=== PATIENT | female | born 1960 | race Caucasian/White ===

== ENCOUNTER 2020-08-18 08:49 | Emergency (ER) | payer OTHER, SELFPAY ==
--- NOTE | ~2020-08-18 | XR_ITS ---
EXAMINATION: XR CHEST CLINICAL INFORMATION: Shortness of breath COMPARISON: None TECHNIQUE: Frontal view of the chest was obtained. FINDINGS: The cardiac and mediastinal contours are normal. There is question of bronchial wall thickening seen at the lung bases. The lungs are otherwise clear. There is no pleural effusion or pneumothorax. There are mild degenerative changes of the spine. XR/XR chest 1V IMPRESSION: Question bronchial wall thickening at the lung bases.
[2020-08-18 09:27] VITALS: BP 139/91; PULSE 80; RESP 18; TEMP 36.7; O2SAT 95; BMI 32.2
[2020-08-18] MEDS: 0.9 % Sodium Chloride 1,000 ML 999 ML IVCONT (09:30)
--- NOTE | 2020-08-18 09:33 | ECG_ITS ---
Test Reason : WEAKNESS Blood Pressure : / mmHG Vent. Rate : 066 BPM Atrial Rate : 066 BPM P-R Int : 144 ms QRS Dur : 070 ms QT Int : 388 ms P-R-T Axes : 048 015 039 degrees QTc Int : 406 ms Normal sinus rhythm Nonspecific T wave abnormality Abnormal ECG No previous ECGs available Referred By: Kelley Aguero Electronically Signed By:Gus Gonzales
--- NOTE | 2020-08-18 09:39 | ED_ITS ---
HPI - General Adult General Chief complaint: Upper Respiratory Symptoms Stated complaint: difficulty breathing Time Seen by Provider: 08/18/20 09:25 Source: patient Mode of arrival: ambulatory Limitations: no limitations History of Present Illness HPI narrative: Patient comes emergency room complaining of general malaise, fevers, occasional shortness of breath. Patient states all her symptoms started 5 days ago. Patient denies vomiting, diarrhea, no cough or chest pain. Patient was seen at [facility] 3 days ago, she was tested for COVID, the test was negative. Patient went again to [facility] this morning because she is still not feeling well, they asked her to come to the emergency room for further eval uation. Patient states that 2 days ago, she had temperature of 101.7 degrees Related Data Allergies Allergy/AdvReac Type Severity Reaction Status Date / Time codeine [CODEINE] Allergy Unknown SWELLING Unverified 02/05/20 14:42 phenytoin [Dilantin] Allergy Unknown Verified 12/29/16 00:00 Codeine Phosphate Allergy Unknown Uncoded 12/29/16 00:00 From DILANTIN Allergy Unknown ITCHY Uncoded 02/05/20 14:42 Review of Systems Review of Systems: Constitutional : No Weight loss, complaining of fever, chills, fatigue, generalized malaise ENT/Mouth : No Hearing loss, No Ear Pain, No Nasal Congestion, No Sinus Pain, No Hoarseness, No sore throat, No Rhinorrhea, No Swallowing Difficulty Eyes: No Eye Pain, No Swelling, No Redness, No Foreign Body, No Discharge, No Vision Changes Cardiovascular : No Chest Pain, No SOB, patient does report Dyspnea on Exertion, No Orthopnea, No Edema, No Palpitations Respiratory : No Cough, No Sputum, No Wheezing, No Smoke Exposure Gastrointestinal : No Nausea, No Vomiting, No Diarrhea, No Constipation, No ab dominal Pain, No Hematochezia, No Melena Genitourinary : no irregular bleeding, No Dysuria, No Urinary Frequency, No Hematuria, No Urinary Incontinence, No Urgency, No Flank Pain, No Urinary Flow Changes, No Hesitancy Musculoskeletal : Complaining of generalized body aches, No Joint Swelling Skin : No Skin Lesions, No rash Neuro : No Weakness, No Numbness, No Paresthesias, No Loss of Consciousness, No Dizziness, No Headache Psych : No Anxiety/Panic, No Depression, No SI/HI/AH/VH, No Social Issues, Heme/Lymph: No Bruising, No Bleeding,No Lymphadenopathy Endocrine : No Polyuria, No Polydipsia, No Temperature Intolerance [facility] Past Medical History Medical History (Updated 08/18/20 @ 11:44 by Kelley Aguero MD) Cerebral aneurysm COPD exacerbation Seizures Social History Social History Advance Directives: No Advance Directives Information Provided: No Physical Exam Vital Signs: Vital Signs: Last Vital Signs Temp 98.1 F 08/18/20 15:42 Pulse 65 08/18/20 15:42 Resp 14 08/18/20 15:42 BP 148/78 H 08/18/20 15:42 Pulse Ox 92 08/18/20 15:42 Body Mass Index 32.2 Appearance: Alert. Oriented X3. No acute distress. Eyes: Pupils equal, round and reactive to light. ENT: Pharynx normal. Neck: Normal inspection. Neck supple. No lymph nodes noted. No crepitus CVS: Normal heart rate and rhythm. Pulses normal. Normal S1 and S2 Respiratory: No respiratory distress. Crackles in the left lower lobe, No Wheezing. No rales Abdomen: Soft and nontender. No rigidity. No distention. good BS x4 Skin: Skin warm, clammy Extremities: No lower extremity edema. Neuro: Oriented X 3. No motor deficit. No sensory deficit. Moving all extermities. No slurred speech. Course Course Course Narrative: I discussed the labs with the patient, patient tested positive for COVID-19. Patient's troponin is slightly bumped. Repeat due at 13:30. Patient remains asymptomatic. Patient was walked, oxygen saturation remained 96% on room air Patient instructed to stay home for 2 weeks isolated. Medical Decision Making Lab Data Result diagrams: 08/18/20 10:24 08/18/20 10:24 Labs: Lab Results 08/18/20 08/18/20 08/18/20 Range/Units 10:24 10:24 10:24 WBC 4.7 L (4.8-10.8) X10*3/uL RBC 4.66 (4.20-5.50) X10*6/uL Hgb 14.8 (12.0-16.0) g/dl Hct 43.5 (37-47) % MCV 93.3 (80-98) fL MCH 31.8 (27.0-33.0) pg MCHC 34.0 (31.0-35.0) g/dl RDW 12.4 (11.0-16.0) % Plt Count 219 (160-400) X10*3/uL MPV 8.9 L (9.4-12.3) fL Immature Gran % (Auto) 0.2 (0.0-0.4) % Neut % (Auto) 53.0 (45-73) % Lymph % (Auto) 32.3 (20-40) % [place] % (Auto) 14.3 H (2-11) % Eos % (Auto) 0.0 (0-4) % Baso % (Auto) 0.2 (0-2) % Lymph # (Auto) 1.5 (1.2-4.9) X10*3/uL [place] # (Auto) 0.7 (0.1-1.2) X10*3/uL Eos # (Auto) 0.0 (0.0-0.4) X10*3/uL Baso # (Auto) 0.0 (0.0-0.2) X10*3/uL Abs Immat Gran (auto) 0.01 (0.00-0.03) X10*3/uL Absolute Neuts (auto) 2.5 (2.0-8.3) X10*3/uL Absolute Nucleated RBC 0.000 (0.0-0.012) X10*3/uL Nucleated RBC % (auto) 0.0 (0.0-0.2) /100WBC Sodium 135 (135-145) mmol/L Potassium 4.1 (3.3-5.1) mmol/L Chloride 102 (96-108) mmol/L Carbon Dioxide 21 L (22-29) mmol/L Anion Gap 16 (12-20) BUN 15 (9-16) mg/dL Creatinine 0.78 (0.5-1.4) mg/dL Estim Creat Clear Calc 67.5 Estimated GFR > 60 Random Glucose 103 (60-115) mg/dL Lactic Acid 0.7 (0.5-2.0) mmol/L Calcium 8.7 (8.4-10.2) mg/dL Troponin I High Sens (<3.5-17.0) ng/L B-Natriuretic Peptide (<100) pg/mL Urine Color Urine Appearance Urine pH (5.0-8.0) Ur Specific [place] (1.005-1.025) Urine Protein (NEG-TRACE) MG/DL Urine Glucose (UA) (NEG) MG/DL Urine Ketones (NEG) MG/DL Urine Blood (NEG) Urine Nitrite (NEG) Ur Leukocyte Esterase (NEG) Urine RBC (0) /HPF Urine WBC (0-4) /HPF Ur Squamous Epith Cells /LPF Urine Bacteria /LPF Hyaline Casts /LPF Granular Casts /LPF Coronavirus (PCR) (Negative) Influenza Type A (PCR) (Negative) Influenza Type B (PCR) (Negative) RSV RNA Qual (PCR) (Negative) 08/18/20 08/18/20 08/18/20 Range/Units 10:24 10:24 10:24 WBC (4.8-10.8) X10*3/uL RBC (4.20-5.50) X10*6/uL Hgb (12.0-16.0) g/dl Hct (37-47) % MCV (80-98) fL MCH (27.0-33.0) pg MCHC (31.0-35.0) g/dl RDW (11.0-16.0) % Plt Count (160-400) X10*3/uL MPV (9.4-12.3) fL Immature Gran % (Auto) (0.0-0.4) % Neut % (Auto) (45-73) % Lymph % (Auto) (20-40) % [place] % (Auto) (2-11) % Eos % (Auto) (0-4) % Baso % (Auto) (0-2) % Lymph # (Auto) (1.2-4.9) X10*3/uL [place] # (Auto) (0.1-1.2) X10*3/uL Eos # (Auto) (0.0-0.4) X10*3/uL Baso # (Auto) (0.0-0.2) X10*3/uL Abs Immat Gran (auto) (0.00-0.03) X10*3/uL Absolute Neuts (auto) (2.0-8.3) X10*3/uL Absolute Nucleated RBC (0.0-0.012) X10*3/uL Nucleated RBC % (auto) (0.0-0.2) /100WBC Sodium (135-145) mmol/L Potassium (3.3-5.1) mmol/L Chloride (96-108) mmol/L Carbon Dioxide (22-29) mmol/L Anion Gap (12-20) BUN (9-16) mg/dL Creatinine (0.5-1.4) mg/dL Estim Creat Clear Calc Estimated GFR Random Glucose (60-115) mg/dL Lactic Acid (0.5-2.0) mmol/L Calcium (8.4-10.2) mg/dL Troponin I High Sens 7.2 (<3.5-17.0) ng/L B-Natriuretic Peptide < 10 (<100) pg/mL Urine Color YELLOW Urine Appearance HAZY Urine pH 5.5 (5.0-8.0) Ur Specific [place] 1.025 (1.005-1.025) Urine Protein 1+ H (NEG-TRACE) MG/DL Urine Glucose (UA) NEG (NEG) MG/DL Urine Ketones NEG (NEG) MG/DL Urine Blood NEG (NEG) Urine Nitrite NEG (NEG) Ur Leukocyte Esterase NEG (NEG) Urine RBC 0-2 (0) /HPF Urine WBC 0 (0-4) /HPF Ur Squamous Epith Cells 2+ /LPF Urine Bacteria NONE /LPF Hyaline Casts 0-2 /LPF Granular Casts 5-9 /LPF Coronavirus (PCR) POSITIVE A (Negative) Influenza Type A (PCR) NEGATIVE (Negative) Influenza Type B (PCR) NEGATIVE (Negative) RSV RNA Qual (PCR) NEGATIVE (Negative) 08/18/20 Range/Units 13:14 WBC (4.8-10.8) X10*3/uL RBC (4.20-5.50) X10*6/uL Hgb (12.0-16.0) g/dl Hct (37-47) % MCV (80-98) fL MCH (27.0-33.0) pg MCHC (31.0-35.0) g/dl RDW (11.0-16.0) % Plt Count (160-400) X10*3/uL MPV (9.4-12.3) fL Immature Gran % (Auto) (0.0-0.4) % Neut % (Auto) (45-73) % Lymph % (Auto) (20-40) % [place] % (Auto) (2-11) % Eos % (Auto) (0-4) % Baso % (Auto) (0-2) % Lymph # (Auto) (1.2-4.9) X10*3/uL [place] # (Auto) (0.1-1.2) X10*3/uL Eos # (Auto) (0.0-0.4) X10*3/uL Baso # (Auto) (0.0-0.2) X10*3/uL Abs Immat Gran (auto) (0.00-0.03) X10*3/uL Absolute Neuts (auto) (2.0-8.3) X10*3/uL Absolute Nucleated RBC (0.0-0.012) X10*3/uL Nucleated RBC % (auto) (0.0-0.2) /100WBC Sodium (135-145) mmol/L Potassium (3.3-5.1) mmol/L Chloride (96-108) mmol/L Carbon Dioxide (22-29) mmol/L Anion Gap (12-20) BUN (9-16) mg/dL Creatinine (0.5-1.4) mg/dL Estim Creat Clear Calc Estimated GFR Random Glucose (60-115) mg/dL Lactic Acid (0.5-2.0) mmol/L Calcium (8.4-10.2) mg/dL Troponin I High Sens 5.9 (<3.5-17.0) ng/L B-Natriuretic Peptide (<100) pg/mL Urine Color Urine Appearance Urine pH (5.0-8.0) Ur Specific [place] (1.005-1.025) Urine Protein (NEG-TRACE) MG/DL Urine Glucose (UA) (NEG) MG/DL Urine Ketones (NEG) MG/DL Urine Blood (NEG) Urine Nitrite (NEG) Ur Leukocyte Esterase (NEG) Urine RBC (0) /HPF Urine WBC (0-4) /HPF Ur Squamous Epith Cells /LPF Urine Bacteria /LPF Hyaline Casts /LPF Granular Casts /LPF Coronavirus (PCR) (Negative) Influenza Type A (PCR) (Negative) Influenza Type B (PCR) (Negative) RSV RNA Qual (PCR) (Negative) Imaging Data Chest x-ray: Radiologist's impression: The cardiac and mediastinal contours are normal. There is question of bronchial wall thickening seen at the lung bases. The lungs are otherwise clear. There is no pleural effusion or pneumothorax. There are mild degenerative changes of the spine. XR/XR chest 1V IMPRESSION: Question bronchial wall thickening at the lung bases. ECG Data Attestation: I personally reviewed and interpreted this ECG as follows: (Heart rate 66, sinus rhythm, nonspecific ST segment depression 1 mm in V4 V5, no reciprocal changes) Discharge Plan Discharge Clinical Impression: COVID-19 Patient Disposition: Home, Self-Care Instructions: COVID-19 (Coronavirus Disease 2019) (ED) Additional Instructions: Please follow-up with your primary care physician tomorrow. If you have any worsening or new symptoms, please return to the emergency room or call 911
[2020-08-18 10:00] VITALS: BP 138/81; PULSE 64; RESP 21; TEMP 37.1; O2SAT 90
[2020-08-18 10:30] LABS: MANUAL DIFF FLAG NO
[2020-08-18 10:41] LABS: Basophils Percent Auto 0.2 % (0-2); Hematocrit 43.5 % (37-47); Hemoglobin 14.8 g/dl (12.0-16.0); Imm Gran Abs Auto 0.01 X10*3/uL (0.00-0.03); Imm Gran Pct Auto 0.2 % (0.0-0.4); Lymphocytes Absolute Auto 1.5 X10*3/uL (1.2-4.9); Lymphocytes Percent Auto 32.3 % (20-40); Mean Corpuscular Hemoglobin 31.8 pg (27.0-33.0); Mean Corpuscular Volume 93.3 fL (80-98); Mean Platelet Volume 8.9 fL (9.4-12.3); Monocytes Absolute Auto 0.7 X10*3/uL (0.1-1.2); Monocytes Percent Auto 14.3 % (2-11); Neutrophils Absolute Auto 2.5 X10*3/uL (2.0-8.3); Platelet Count 219 X10*3/uL (160-400); Red Blood Count 4.66 X10*6/uL (4.20-5.50); Red Cell Distribution Width 12.4 % (11.0-16.0); White Blood Count 4.7 X10*3/uL (4.8-10.8)
[2020-08-18 10:51] LABS: Lactic Acid 0.7 mmol/L (0.5-2.0)
[2020-08-18 10:54] LABS: Glucose Urine UA NEG (NEG); Leukocyte Esterase Urine NEG (NEG); Nitrite Urine NEG (NEG); PH 5.5 (5.0-8.0); Specific Gravity - Urine 1.025 (1.005-1.025); Urine Blood NEG (NEG); Urine Ketones NEG (NEG); Urine Protein 1+ MG/DL (NEG-TRACE)
[2020-08-18 10:55] LABS: Appearance Urine HAZY; Color Urine YELLOW
[2020-08-18 11:00] LABS: Anion Gap 16 (12-20); Blood Urea Nitrogen 15 mg/dL (9-16); Calcium 8.7 mg/dL (8.4-10.2); Carbon Dioxide 21 mmol/L (22-29); Chloride 102 mmol/L (96-108); Creatinine Clr Calc Pharmacy 67.5; Estimated Glomerular Filt Rate > 60; Glucose Random 103 mg/dL (60-115); Potassium 4.1 mmol/L (3.3-5.1); Sodium 135 mmol/L (135-145)
[2020-08-18 11:01] LABS: B Type Natriuretic Peptide < 10 pg/mL (<100); Troponin-I High Sensitivity 7.2 ng/L (<3.5-17.0)
[2020-08-18 11:03] LABS: Hyaline Casts Urine 0-2 /LPF; RBC Urine 0-2 /HPF (0); Squamous Epithelial Cell Urine 2+ /LPF; WBC Urine 0 /HPF (0-4)
[2020-08-18 11:10] LABS: Influenza A PCR NEGATIVE (Negative); Influenza B PCR NEGATIVE (Negative); Resp Syncy Virus RNA Qual PCR NEGATIVE (Negative); SARS COV2 PCR INHOUSE POSITIVE (Negative)
[2020-08-18 13:54] LABS: Troponin-I High Sensitivity 5.9 ng/L (<3.5-17.0)
[2020-08-18 15:42] VITALS: BP 148/78; PULSE 65; RESP 14; TEMP 36.7; O2SAT 92
[2020-08-18 16:00] VITALS: BP 148/78; PULSE 66
== END 2020-08-18 17:01 | disposition home or self-care (01) ==
PROVIDERS: Emergency Provider Emergency Medicine; PCP Internal Medicine
DX: U07.1 COVID-19 (principal); R06.02 Shortness of breath; R50.9 Fever, unspecified; M79.10 Myalgia, unspecified site
CPT/HCPCS: 0241U; 36415; 71045; 80048; 81001; 83605; 83880; 84484; 85025; 87040; 93005; 96360; 99284

== ENCOUNTER 2021-03-15 11:07 | Outpatient (REF) | payer OTHER, SELFPAY ==
[2021-03-15 12:44] LABS: Anion Gap 13 (12-20); Carbon Dioxide 20 mmol/L (22-29); Chloride 109 mmol/L (96-108); Potassium 4.3 mmol/L (3.3-5.1); Sodium 138 mmol/L (135-145)
[2021-03-15 13:18] LABS: Carbamazepine Tegretol 12.1 mcg/mL (5.0-12.0)
== END 2021-03-15 11:08 | disposition home or self-care (01) ==
LOC: HO.LAB 11:07
PROVIDERS: PCP Internal Medicine; Visit Provider Psychiatry & Neurology Neurology
DX: G40.909 Epilepsy, unspecified, not intractable, without status epilepticus (principal)
CPT/HCPCS: 36415; 80051; 80156

== ENCOUNTER 2022-05-11 14:22 | Outpatient (REF) | payer OTHER, SELFPAY ==
[2022-05-11 15:07] LABS: Influenza A PCR NEGATIVE (Negative); Influenza B PCR NEGATIVE (Negative); Resp Syncy Virus RNA Qual PCR NEGATIVE (Negative); SARS COV2 PCR INHOUSE NEGATIVE (Negative)
== END 2022-05-11 14:23 | disposition home or self-care (01) ==
LOC: HO.LNP 14:22
PROVIDERS: Visit Provider Physician Assistant
DX: Z20.822 Contact with and (suspected) exposure to COVID-19 (principal); B34.9 Viral infection, unspecified
CPT/HCPCS: 0241U

== ENCOUNTER 2022-07-06 14:21 | Observation (INO) | payer OTHER, SELFPAY ==
--- NOTE | ~2022-07-06 | XR_ITS ---
EXAMINATION: XR CHEST CLINICAL INFORMATION: Chest pain and shortness of breath. COMPARISON: 08/18/2020 chest radiograph. TECHNIQUE: 2 views of the chest were obtained. FINDINGS: No significant abnormality is noted involving the heart, lungs, mediastinum, bony thorax or soft tissues. XR/XR chest 2V IMPRESSION: No acute cardiopulmonary process.
--- NOTE | ~2022-07-06 | CT_ITS ---
EXAMINATION: CT ANGIOGRAM OF THE CHEST WITH AND WITHOUT CONTRAST (CT PULMONARY ANGIOGRAM FOR PE) CT ABDOMEN AND PELVIS WITH IV CONTRAST CLINICAL INFORMATION: Shortness of breath. Abdominal pain. COMPARISON: CT abdomen/pelvis 12/04/2018. TECHNIQUE: Prior to contrast administration, noncontrast localization images were obtained. Subsequently, multidetector volumetric imaging was performed from the thoracic inlet to the pubic symphysis through the chest, abdomen, and pelvis following the administration of 65 mL Omnipaque 350 intravenous contrast. No contrast reaction reported Sagittal, coronal, and MIP oblique sagittal (through the chest only) reformatted images were obtained on the CT workstation, uploaded to PACS, and reviewed. Total exam dose-length product 244 and 550 mGy-cm This CT examination was performed using dose optimization techniques as appropriate, variously including the following: *Automated exposure control *Adjustment of mA and/or kV according to patient size (this includes techniques or standardized protocols for targeted exams where dose is matched to indication/reason for exam; i.e. extremities or head) *Use of iterative reconstruction technique FINDINGS: QUALITY OF STUDY/CONTRAST BOLUS: Satisfactory. PULMONARY ARTERIES: No central or segmental pulmonary emboli. THORACIC AORTA: No aneurysm or dissection. LUNG: Background of extensive emphysematous changes with also peripheral reticulation and possibly honeycombing in the lung bases. There are multiple pulmonary nodules, largest as follow (series 8): 1. Solid 0.9 cm nodule in the left lower lobe, image 253. 2. Solid 0.9 cm nodule in the right middle lobe abutting the minor fissure, image 229. 3. Solid 0.7 cm pulmonary nodule in the right lower lobe, image 245. 4. Solid 0.7 cm nodule also in the right lower lobe, image 236. PLEURA: No pleural effusion or pneumothorax. MEDIASTINUM: Normal heart size. No pericardial effusion. No evidence of septal bowing or right heart strain. Hilar lymphadenopathy, for example measuring 1.5 cm short axis on the right side on image 201, series 8. Subcentimeter thyroid nodule in the right gland, for which no imaging follow-up is recommended. CHEST WALL/AXILLA: No axillary or internal mammary lymphadenopathy. ABDOMEN/PELVIS: LIVER, GALLBLADDER AND BILIARY TREE: The liver is normal in size, shape, and attenuation. No focal hepatic lesion or biliary ductal dilatation is present. The gallbladder is unremarkable with no evidence of radiopaque gallstones, gallbladder wall thickening, or obvious pericholecystic inflammatory changes. PANCREAS: Questionable ill-defined focal hypodensity in the pancreatic head posterior to the SMV (15:30) and suggestion of additional indeterminate area of low density abutting the anterior surface of the pancreatic head (15:34). The main pancreatic duct is nondilated. No peripancreatic inflammatory changes. SPLEEN: Normal size. No focal lesion. ADRENAL GLANDS: Normal; no mass. KIDNEYS AND URETERS: Chronic atrophy of the right kidney. Compensatory hypertrophy of the left kidney with cortical scarring in the anterior surface. Bosniak 1 water density cyst in the upper left kidney. No hydronephrosis or nephrolithiasis. No perinephric fat stranding. GASTROINTESTINAL TRACT: Stomach and small bowel non-dilated. Colonic diverticulosis. No colonic wall thickening or pericolonic inflammatory changes. Normal appendix. ABDOMINAL WALL: No significant hernia is appreciated. LYMPHOVASCULAR STRUCTURES: No lymphadenopathy. No aneurysmatic dilatation of the abdominal aorta. Extensive atherosclerotic disease. BLADDER: No focal mass or wall thickening seen. No bladder calculi. PELVIC VISCERA: Unremarkable. OSSEOUS STRUCTURES: No acute or suspicious osseous abnormality. Degenerative changes of the spine. CT/CT angio chest PE protocol IMPRESSION: 1. No evidence of pulmonary emboli nor increased right-sided heart pressure. 2. Multiple solid rounded pulmonary nodules are concerning for malignancy, including metastatic disease. 3. Equivocal nonspecific regions of low density in the pancreatic head, for which correlation with an abdominal MRI with and without IV contrast/MRCP pancreatic mass protocol is recommended to further characterize. 4. Hilar lymphadenopathy. 5. Background of significant emphysema and possible early pulmonary fibrosis in the lung bases. 6. Colonic diverticulosis with no evidence of acute diverticulitis. VTE: negative This critical result was discussed with Dr. Perea at 07/07/2022 12:47 AM, specifically the findings of suspicious pulmonary nodules and abnormal appearance of the pancreatic head, and it was ascertained that the content of the report was understood at the time of direct communication.
[2022-07-06 14:23] VITALS: BP 149/84; PULSE 89; RESP 16; TEMP 36.6; O2SAT 97; BMI 31.1
--- NOTE | 2022-07-06 14:24 | ED.SOB ---
HPI - SOB/Dyspnea General Chief Complaint: Upper Respiratory Symptoms Stated Complaint: sent by having trouble breathing Time Seen by Provider: 07/06/22 20:05 Related Data Home Medications Medication Instructions Recorded Confirmed amlodipine 10 mg tablet 10 mg PO DAILY 05/11/22 carbamazepine 200 mg tablet mg PO 05/11/22 ezetimibe 10 mg tablet 10 mg PO DAILY 05/11/22 fluoxetine 20 mg capsule 40 mg PO DAILY 05/11/22 gabapentin 100 mg capsule mg PO 05/11/22 latanoprost 0.005 % eye drops 0 drp ophthalmic (eye) 05/11/22 rosuvastatin 5 mg tablet 5 mg PO DAILY 05/11/22 umeclidinium 62.5 mcg-vilanterol 1 ea inhalation DAILY 05/11/22 25 mcg/actuation powdr for inhalation (Anoro Ellipta) warfarin 4 mg tablet mg PO 05/11/22 Previous Rx's Medication Instructions Recorded albuterol sulfate 90 mcg/actuation 2 puff inhalation Q6H PRN 05/11/22 aerosol inhaler shortness of breath or wheezing #6.7 grams benzonatate 100 mg capsule 100 mg PO BID PRN cough #14 caps 05/11/22 doxycycline hyclate 100 mg capsule 100 mg PO BID 7 days #14 caps 05/11/22 prednisone 20 mg tablet 40 mg PO DAILY 5 days #10 tabs 05/11/22 Allergies Allergy/AdvReac Type Severity Reaction Status Date / Time codeine [CODEINE] Allergy Unknown SWELLING Verified 07/06/22 14:28 phenytoin [Dilantin] Allergy Unknown Rash Verified 07/06/22 14:28 Codeine Phosphate Allergy Unknown Swelling Uncoded 07/06/22 14:28 From DILANTIN Allergy Unknown ITCHY Uncoded 07/06/22 14:28 [facility] Past Medical History Medical History (Updated 07/07/22 @ 01:02 by Deshawn Perea) Cerebral aneurysm COPD exacerbation Seizures Social History Social History Alcohol intake: never Patient Tobacco Use Status: Former Tobacco user Smoked in Last 30 Days: No Use of substances other than those prescribed or required for medical reasons: No Advance Directives: No Nutrition Risks: No Nutritional Risk Patient : No Physical Exam Vital Signs: Vital Signs: Last Vital Signs Temp 98.1 F 07/06/22 22:30 Pulse 71 07/06/22 22:30 Resp 18 07/06/22 22:30 BP 147/77 H 07/06/22 22:30 Pulse Ox 94 07/06/22 22:30 O2 Del Method 07/06/22 22:30 BMI result Body Mass Index 31.1 Course Course Course Narrative: MADY- 14:25pm 62yoF with a PMHx of COPD, stroke currently on Coumadin has her INR checked every Sunday currently on 4.2 mg of Coumadin who is presenting to the ED with URI symptoms. Reports on Jun 13 tested + for COVID-19 and went to [place] for the monoclonal therapy due to being on blood thinners who is presenting to the ED with complaints of worsening symptoms since she was dx with COVID which includes fevers, sore throat, nasal congestion, cough, SOB, BOSS, Orthopnea, diarrhea. She denies any dizziness, neck pain/stiffness, abdominal pain, nausea/vomiting, lower extremity edema or calf tenderness or any other symptoms complaints or concerns at this time. Plan: LABS, EKG, CHEST X-RAY, COVID/RSV/FLU swabs ordered at this time. Patient will be sent back to the waiting room to be evaluated in ED. Medications Administered Generic Name Dose Route Start Last Admin Trade Name Freq PRN Reason Stop Dose Admin Methylprednisolone Sodium Succinate 40 mg 07/06/22 23:00 07/06/22 23:59 Methylprednisolone Sod Succ 40 Mg/Ml Vial IVPUSH 40 mg Q12H ARPAN Administration Sodium Chloride 3 ml 07/07/22 00:00 07/07/22 00:13 0.9 % Sodium Chloride Flush 3 Ml Syringe IVFLUSH 3 ml QSHIFT ARPAN Administration Discontinued Medications Generic Name Dose Route Start Last Admin Trade Name Freq PRN Reason Stop Dose Admin Sodium Chloride 500 mls @ 500 mls/hr 07/06/22 20:25 07/06/22 23:31 Ns IV 07/06/22 21:24 Infused .Q1H ONE Infusion Iohexol 65 ml 07/07/22 00:07 07/07/22 00:10 Iohexol 350 Mg/Ml 100 Ml Infus..Btl IV 07/07/22 00:08 65 ml ONCE ONE Administration Medical Decision Making Lab Data 07/06/22 14:50 02/16/23 14:50 Labs: Lab Results 07/06/22 07/06/22 07/06/22 Range/Units 14:50 14:50 14:50 WBC 6.7 (4.8-10.8) X10*3/uL RBC 4.59 (4.20-5.50) X10*6/uL Hgb 14.2 (12.0-16.0) g/dl Hct 42.2 (37.0-47.0) % MCV 91.9 (80.0-98.0) fL MCH 30.9 (27.0-33.0) pg MCHC 33.6 (31.0-35.0) g/dl RDW 13.2 (11.0-16.0) % Plt Count 258 (160-400) X10*3/uL MPV 8.9 L (9.4-12.3) fL Immature Gran % (Auto) 0.3 (0.0-0.4) % Neut % (Auto) 61.0 (45-73) % Lymph % (Auto) 28.0 (20-40) % [place] % (Auto) 10.0 (2-11) % Eos % (Auto) 0.3 (0-4) % Baso % (Auto) 0.4 (0-2) % Lymph # (Auto) 1.9 (1.2-4.9) X10*3/uL [place] # (Auto) 0.7 (0.1-1.2) X10*3/uL Eos # (Auto) 0.0 (0.0-0.4) X10*3/uL Baso # (Auto) 0.0 (0.0-0.2) X10*3/uL Abs Immat Gran (auto) 0.02 (0.00-0.03) X10*3/uL Absolute Neuts (auto) 4.1 (2.0-8.3) x10*3/uL Absolute Nucleated RBC 0.000 (0.0-0.012) X10*3/uL Nucleated RBC % (auto) 0.0 (0.0-0.2) /100WBC PT 27.5 H (10.0-13.1) SEC INR 2.3 H (0.9-1.1) Sodium 124 L (135-145) mmol/L Potassium 3.8 (3.3-5.1) mmol/L Chloride 96 (96-108) mmol/L Carbon Dioxide 18 L (22-29) mmol/L Anion Gap 14 (12-20) BUN 13 (9-16) mg/dL Creatinine 0.70 (0.5-1.4) mg/dL Estim Creat Clear Calc 75.1 Estimated GFR > 60 Random Glucose 99 (60-115) mg/dL Osmolality (281-305) mosm/kg Calcium 8.7 (8.4-10.2) mg/dL Magnesium 1.9 (1.6-2.6) mg/dL Total Bilirubin 0.3 (0.0-1.0) mg/dL AST 34 H (5-31) U/L ALT 21 (0-31) U/L Alkaline Phosphatase 97 (39-117) U/L Troponin I High Sens (<3.5-17.0) ng/L B-Natriuretic Peptide (<100) pg/mL Total Protein 7.1 (6.5-8.0) g/dL Albumin 4.2 (3.5-5.0) g/dL Influenza Type A (PCR) (Negative) Influenza Type B (PCR) (Negative) RSV RNA Qual (PCR) (Negative) SARS-CoV-2 RNA (RT-PCR) (Negative) 07/06/22 07/06/22 07/06/22 Range/Units 14:50 14:50 14:50 WBC (4.8-10.8) X10*3/uL RBC (4.20-5.50) X10*6/uL Hgb (12.0-16.0) g/dl Hct (37.0-47.0) % MCV (80.0-98.0) fL MCH (27.0-33.0) pg MCHC (31.0-35.0) g/dl RDW (11.0-16.0) % Plt Count (160-400) X10*3/uL MPV (9.4-12.3) fL Immature Gran % (Auto) (0.0-0.4) % Neut % (Auto) (45-73) % Lymph % (Auto) (20-40) % [place] % (Auto) (2-11) % Eos % (Auto) (0-4) % Baso % (Auto) (0-2) % Lymph # (Auto) (1.2-4.9) X10*3/uL [place] # (Auto) (0.1-1.2) X10*3/uL Eos # (Auto) (0.0-0.4) X10*3/uL Baso # (Auto) (0.0-0.2) X10*3/uL Abs Immat Gran (auto) (0.00-0.03) X10*3/uL Absolute Neuts (auto) (2.0-8.3) x10*3/uL Absolute Nucleated RBC (0.0-0.012) X10*3/uL Nucleated RBC % (auto) (0.0-0.2) /100WBC PT (10.0-13.1) SEC INR (0.9-1.1) Sodium (135-145) mmol/L Potassium (3.3-5.1) mmol/L Chloride (96-108) mmol/L Carbon Dioxide (22-29) mmol/L Anion Gap (12-20) BUN (9-16) mg/dL Creatinine (0.5-1.4) mg/dL Estim Creat Clear Calc Estimated GFR Random Glucose (60-115) mg/dL Osmolality (281-305) mosm/kg Calcium (8.4-10.2) mg/dL Magnesium (1.6-2.6) mg/dL Total Bilirubin (0.0-1.0) mg/dL AST (5-31) U/L ALT (0-31) U/L Alkaline Phosphatase (39-117) U/L Troponin I High Sens 12.7 (<3.5-17.0) ng/L B-Natriuretic Peptide < 10 (<100) pg/mL Total Protein (6.5-8.0) g/dL Albumin (3.5-5.0) g/dL Influenza Type A (PCR) NEGATIVE (Negative) Influenza Type B (PCR) NEGATIVE (Negative) RSV RNA Qual (PCR) NEGATIVE (Negative) SARS-CoV-2 RNA (RT-PCR) NEGATIVE (Negative) 07/06/22 07/06/22 Range/Units 14:50 20:44 WBC (4.8-10.8) X10*3/uL RBC (4.20-5.50) X10*6/uL Hgb (12.0-16.0) g/dl Hct (37.0-47.0) % MCV (80.0-98.0) fL MCH (27.0-33.0) pg MCHC (31.0-35.0) g/dl RDW (11.0-16.0) % Plt Count (160-400) X10*3/uL MPV (9.4-12.3) fL Immature Gran % (Auto) (0.0-0.4) % Neut % (Auto) (45-73) % Lymph % (Auto) (20-40) % [place] % (Auto) (2-11) % Eos % (Auto) (0-4) % Baso % (Auto) (0-2) % Lymph # (Auto) (1.2-4.9) X10*3/uL [place] # (Auto) (0.1-1.2) X10*3/uL Eos # (Auto) (0.0-0.4) X10*3/uL Baso # (Auto) (0.0-0.2) X10*3/uL Abs Immat Gran (auto) (0.00-0.03) X10*3/uL Absolute Neuts (auto) (2.0-8.3) x10*3/uL Absolute Nucleated RBC (0.0-0.012) X10*3/uL Nucleated RBC % (auto) (0.0-0.2) /100WBC PT (10.0-13.1) SEC INR (0.9-1.1) Sodium (135-145) mmol/L Potassium (3.3-5.1) mmol/L Chloride (96-108) mmol/L Carbon Dioxide (22-29) mmol/L Anion Gap (12-20) BUN (9-16) mg/dL Creatinine (0.5-1.4) mg/dL Estim Creat Clear Calc Estimated GFR Random Glucose (60-115) mg/dL Osmolality 282 (281-305) mosm/kg Calcium (8.4-10.2) mg/dL Magnesium (1.6-2.6) mg/dL Total Bilirubin (0.0-1.0) mg/dL AST (5-31) U/L ALT (0-31) U/L Alkaline Phosphatase (39-117) U/L Troponin I High Sens 4.2 D (<3.5-17.0) ng/L B-Natriuretic Peptide (<100) pg/mL Total Protein (6.5-8.0) g/dL Albumin (3.5-5.0) g/dL Influenza Type A (PCR) (Negative) Influenza Type B (PCR) (Negative) RSV RNA Qual (PCR) (Negative) SARS-CoV-2 RNA (RT-PCR) (Negative) Discharge Plan Discharge Clinical Impression: Acute hyponatremia Patient Disposition: Admitted As Inpatient
--- NOTE | 2022-07-06 14:28 | ECG_ITS ---
Test Reason : dyspnea Blood Pressure : / mmHG Vent. Rate : 081 BPM Atrial Rate : 081 BPM P-R Int : 124 ms QRS Dur : 068 ms QT Int : 364 ms P-R-T Axes : 040 015 055 degrees QTc Int : 422 ms Normal sinus rhythm Nonspecific T wave abnormality Abnormal ECG When compared with ECG of 18-AUG-2020 09:59, Nonspecific T wave abnormality no longer evident in Inferior leads Referred By: Oksana Garduno Electronically Signed By:Gus Gonzales
[2022-07-06 14:58] LABS: MANUAL DIFF FLAG NO
[2022-07-06 15:02] LABS: Basophils Percent Auto 0.4 % (0-2); Eosinophils Percent Auto 0.3 % (0-4); Hematocrit 42.2 % (37.0-47.0); Hemoglobin 14.2 g/dl (12.0-16.0); Imm Gran Abs Auto 0.02 X10*3/uL (0.00-0.03); Imm Gran Pct Auto 0.3 % (0.0-0.4); Lymphocytes Absolute Auto 1.9 X10*3/uL (1.2-4.9); Mean Corpuscular HGB Conc 33.6 g/dl (31.0-35.0); Mean Corpuscular Hemoglobin 30.9 pg (27.0-33.0); Mean Corpuscular Volume 91.9 fL (80.0-98.0); Mean Platelet Volume 8.9 fL (9.4-12.3); Monocytes Absolute Auto 0.7 X10*3/uL (0.1-1.2); Neutrophils Absolute Auto 4.1 x10*3/uL (2.0-8.3); Platelet Count 258 X10*3/uL (160-400); Red Blood Count 4.59 X10*6/uL (4.20-5.50); Red Cell Distribution Width 13.2 % (11.0-16.0); White Blood Count 6.7 X10*3/uL (4.8-10.8)
[2022-07-06 15:06] LABS: INTERNATIONAL NORM RATIO 2.3 (0.9-1.1); Prothrombin Time 27.5 SEC (10.0-13.1)
[2022-07-06 15:21] LABS: Alanine Aminotransferase 21 U/L (0-31); Albumin Level 4.2 g/dL (3.5-5.0); Alkaline Phosphatase 97 U/L (39-117); Anion Gap 14 (12-20); Aspartate Amino Transferase 34 U/L (5-31); Bilirubin Total 0.3 mg/dL (0.0-1.0); Blood Urea Nitrogen 13 mg/dL (9-16); Calcium 8.7 mg/dL (8.4-10.2); Carbon Dioxide 18 mmol/L (22-29); Chloride 96 mmol/L (96-108); Creatinine Clr Calc Pharmacy 75.1; Estimated Glomerular Filt Rate > 60; Glucose Random 99 mg/dL (60-115); Magnesium 1.9 mg/dL (1.6-2.6); Potassium 3.8 mmol/L (3.3-5.1); Sodium 124 mmol/L (135-145); Total Protein 7.1 g/dL (6.5-8.0); Troponin-I High Sensitivity 12.7 ng/L (<3.5-17.0)
[2022-07-06 15:24] LABS: B Type Natriuretic Peptide < 10 pg/mL (<100)
[2022-07-06 15:36] LABS: Influenza A PCR NEGATIVE (Negative); Influenza B PCR NEGATIVE (Negative); Resp Syncy Virus RNA Qual PCR NEGATIVE (Negative); SARS COV2 PCR INHOUSE NEGATIVE (Negative)
[2022-07-06 20:23] VITALS: BP 159/77; PULSE 76; RESP 15; TEMP 36.9; O2SAT 94
--- NOTE | 2022-07-06 20:32 | ED_ITS ---
HPI - General Adult General Chief complaint: Upper Respiratory Symptoms Stated complaint: sent by having trouble breathing Time Seen by Provider: 07/06/22 20:05 Source: patient, family (), RN notes reviewed and old records reviewed Mode of arrival: ambulatory Limitations: no limitations History of Present Illness HPI narrative: 62-year-old female past medical history significant for DVT of the right upper extremity Eliquis, asthma, hypertension, hyperlipidemia presents for evaluation of shortness of breath and weakness. patient reports that she was diagnosed with COVID-19 and June 13, 2022. she reports that she is not able to take no oral antiviral so I had infusions for a few days. Patient reports that she initially felt better after the infusions but over last 2 weeks she has had increasing weakness, persistent cough as well as persistent diarrhea. She reports she has had diarrhea numerous times almost every day. she states that sometimes the urges of sudden that she cannot make it to the bathroom in time. She states her diarrhea is quite foul smelling as well. She denies any history of C diff patient reports that she has had a cough with increasing shortness of breath for last 2 weeks. She has associated left-sided back pain. She is on Coumadin for history of DVT and she has been taking as prescribed patient reports associated fevers as well as intermittent abdominal pains Related Data Home Medications Medication Instructions Recorded Confirmed amlodipine 10 mg tablet 10 mg PO DAILY 05/11/22 carbamazepine 200 mg tablet mg PO 05/11/22 ezetimibe 10 mg tablet 10 mg PO DAILY 05/11/22 fluoxetine 20 mg capsule 40 mg PO DAILY 05/11/22 gabapentin 100 mg capsule mg PO 05/11/22 latanoprost 0.005 % eye drops 0 drp ophthalmic (eye) 05/11/22 rosuvastatin 5 mg tablet 5 mg PO DAILY 05/11/22 umeclidinium 62.5 mcg-vilanterol 1 ea inhalation DAILY 05/11/22 25 mcg/actuation powdr for inhalation (Anoro Ellipta) warfarin 4 mg tablet mg PO 05/11/22 Previous Rx's Medication Instructions Recorded albuterol sulfate 90 mcg/actuation 2 puff inhalation Q6H PRN 05/11/22 aerosol inhaler shortness of breath or wheezing #6.7 grams benzonatate 100 mg capsule 100 mg PO BID PRN cough #14 caps 05/11/22 doxycycline hyclate 100 mg capsule 100 mg PO BID 7 days #14 caps 05/11/22 prednisone 20 mg tablet 40 mg PO DAILY 5 days #10 tabs 05/11/22 Allergies Allergy/AdvReac Type Severity Reaction Status Date / Time codeine [CODEINE] Allergy Unknown SWELLING Verified 07/06/22 14:28 phenytoin [Dilantin] Allergy Unknown Rash Verified 07/06/22 14:28 Codeine Phosphate Allergy Unknown Swelling Uncoded 07/06/22 14:28 From DILANTIN Allergy Unknown ITCHY Uncoded 07/06/22 14:28 Review of Systems Constitutional: Constitutional: Reports as per HPI, Reports anorexia, Reports body ache(s), Reports chills, Reports fatigue, Reports fever(s) and Reports weakness ENT: Reports sore throat and Denies throat swelling Cardiovascular: Cardiovascular: Denies chest pain and Reports dyspnea Respiratory: Respiratory: Denies cough and Reports dyspnea Gastrointestinal: Gastrointestinal: Reports abdominal pain, Denies melena, Denies hematochezia, Denies constipation, Reports fecal incontinence, Reports diarrhea, Reports nausea, Denies vomiting and Denies hematemesis Genitourinary: Genitourinary: Denies dysuria Musculoskeletal: Musculoskeletal: Reports back pain Integumentary/Breasts: Skin/Breast: Denies rash Neurologic: Reports weakness Endocrine: Endocrine: Reports fatigue Allergic/Immunologic: Allergic/Immunologic: Denies throat swelling PMFSH Past Medical History Medical History (Updated 07/07/22 @ 01:02 by Deshawn Perea) Cerebral aneurysm COPD exacerbation Seizures Social History Social History Alcohol intake: never Patient Tobacco Use Status: Former Tobacco user Smoked in Last 30 Days: No Use of substances other than those prescribed or required for medical reasons: No Advance Directives: No Nutrition Risks: No Nutritional Risk Patient : No Physical Exam ED Vital Signs: Vital Signs - 24 hr 07/06/22 14:23 07/06/22 20:23 07/06/22 20:23 Temperature 98 F 98.4 F Pulse Rate 89 76 Respiratory Rate 16 15 Blood Pressure 149/84 H 159/77 H Pulse Oximetry 97 94 94 Oxygen Delivery Method Room Air Room Air Room Air BMI result Body Mass Index 31.1 Const General: healthy appearing, comfortable, no acute distress, alert and awake Nutritional Appearance: well nourished Orientation/consciousness: patient oriented x3 Eyes Eyelids: Yes eyelids normal Conjunctivae: conjunctivae normal Sclerae: sclerae normal Corneas: corneas normal Pupils: Equal, round and reactive pupils present EOM: EOMs intact bilaterally Resp Effort & Inspection: normal respiratory effort, able to speak in complete sentences, no audible wheezes and not labored Back/Spine/Pelvis Other: patient is tender palpation left upper thoracic region. No focal vertebral tenderness, no step-off deformities. Skin General skin exam: no rashes or lesions noted and elasticity normal Lesions: no lesions Rashes: no rashes Neuro General: patient oriented x3 Cranial nerves: Yes Equal, round and reactive pupils present Extrem General: Yes full ROM Medications Administered Generic Name Dose Route Start Last Admin Trade Name Freq PRN Reason Stop Dose Admin Methylprednisolone Sodium Succinate 40 mg 07/06/22 23:00 07/06/22 23:59 Methylprednisolone Sod Succ 40 Mg/Ml Vial IVPUSH 40 mg Q12H ARPAN Administration Sodium Chloride 3 ml 07/07/22 00:00 07/07/22 00:13 0.9 % Sodium Chloride Flush 3 Ml Syringe IVFLUSH 3 ml QSHIFT ARPAN Administration Discontinued Medications Generic Name Dose Route Start Last Admin Trade Name Freq PRN Reason Stop Dose Admin Sodium Chloride 500 mls @ 500 mls/hr 07/06/22 20:25 07/06/22 23:31 Ns IV 07/06/22 21:24 Infused .Q1H ONE Infusion Iohexol 65 ml 07/07/22 00:07 07/07/22 00:10 Iohexol 350 Mg/Ml 100 Ml Infus..Btl IV 07/07/22 00:08 65 ml ONCE ONE Administration Medical Decision Making Medical Decision Making [facility] Narrative: patient's vital signs are stable, has no evidence of sepsis. She has multiple complaints including cough, shortness of abdominal pain and diarrhea. Patient's sodium was noted to be low at 124. Her chest x-ray is negative for pneumonia which is reassuring as with the hyponatremia, there is a high suspicion for Legionella pneumonia. Will get a CTA to evaluate for PE as the patient recently had COVID-19 and she reports that in August of 2019 she had a lipid DVTs secondary to COVID-19. Will also get a CT scan of the abdomen pelvis to evaluate for infectious process. A C diff stool study was ordered. The patient's labs are otherwise reassuring, her potassium magnesium are within normal limits. There is no leukocytosis. The patient was treated with normal saline 500 cc bolus to start. She will likely require maintenance fluids afterwards. Differential Diagnosis PE, pneumonia, Legionella pneumonia, Clostridium difficile, colitis, SIADH, hyponatremia Lab Data MDM Lab Attestation statement: I reviewed the patient's lab results. 07/06/22 14:50 07/06/22 14:50 Labs: Lab Results 07/06/22 07/06/22 07/06/22 Range/Units 14:50 14:50 14:50 WBC 6.7 (4.8-10.8) X10*3/uL RBC 4.59 (4.20-5.50) X10*6/uL Hgb 14.2 (12.0-16.0) g/dl Hct 42.2 (37.0-47.0) % MCV 91.9 (80.0-98.0) fL MCH 30.9 (27.0-33.0) pg MCHC 33.6 (31.0-35.0) g/dl RDW 13.2 (11.0-16.0) % Plt Count 258 (160-400) X10*3/uL MPV 8.9 L (9.4-12.3) fL Immature Gran % (Auto) 0.3 (0.0-0.4) % Neut % (Auto) 61.0 (45-73) % Lymph % (Auto) 28.0 (20-40) % [place] % (Auto) 10.0 (2-11) % Eos % (Auto) 0.3 (0-4) % Baso % (Auto) 0.4 (0-2) % Lymph # (Auto) 1.9 (1.2-4.9) X10*3/uL [place] # (Auto) 0.7 (0.1-1.2) X10*3/uL Eos # (Auto) 0.0 (0.0-0.4) X10*3/uL Baso # (Auto) 0.0 (0.0-0.2) X10*3/uL Abs Immat Gran (auto) 0.02 (0.00-0.03) X10*3/uL Absolute Neuts (auto) 4.1 (2.0-8.3) x10*3/uL Absolute Nucleated RBC 0.000 (0.0-0.012) X10*3/uL Nucleated RBC % (auto) 0.0 (0.0-0.2) /100WBC PT 27.5 H (10.0-13.1) SEC INR 2.3 H (0.9-1.1) Sodium 124 L (135-145) mmol/L Potassium 3.8 (3.3-5.1) mmol/L Chloride 96 (96-108) mmol/L Carbon Dioxide 18 L (22-29) mmol/L Anion Gap 14 (12-20) BUN 13 (9-16) mg/dL Creatinine 0.70 (0.5-1.4) mg/dL Estim Creat Clear Calc 75.1 Estimated GFR > 60 Random Glucose 99 (60-115) mg/dL Osmolality (281-305) mosm/kg Calcium 8.7 (8.4-10.2) mg/dL Magnesium 1.9 (1.6-2.6) mg/dL Total Bilirubin 0.3 (0.0-1.0) mg/dL AST 34 H (5-31) U/L ALT 21 (0-31) U/L Alkaline Phosphatase 97 (39-117) U/L Troponin I High Sens (<3.5-17.0) ng/L B-Natriuretic Peptide (<100) pg/mL Total Protein 7.1 (6.5-8.0) g/dL Albumin 4.2 (3.5-5.0) g/dL Influenza Type A (PCR) (Negative) Influenza Type B (PCR) (Negative) RSV RNA Qual (PCR) (Negative) SARS-CoV-2 RNA (RT-PCR) (Negative) 07/06/22 07/06/22 07/06/22 Range/Units 14:50 14:50 14:50 WBC (4.8-10.8) X10*3/uL RBC (4.20-5.50) X10*6/uL Hgb (12.0-16.0) g/dl Hct (37.0-47.0) % MCV (80.0-98.0) fL MCH (27.0-33.0) pg MCHC (31.0-35.0) g/dl RDW (11.0-16.0) % Plt Count (160-400) X10*3/uL MPV (9.4-12.3) fL Immature Gran % (Auto) (0.0-0.4) % Neut % (Auto) (45-73) % Lymph % (Auto) (20-40) % [place] % (Auto) (2-11) % Eos % (Auto) (0-4) % Baso % (Auto) (0-2) % Lymph # (Auto) (1.2-4.9) X10*3/uL [place] # (Auto) (0.1-1.2) X10*3/uL Eos # (Auto) (0.0-0.4) X10*3/uL Baso # (Auto) (0.0-0.2) X10*3/uL Abs Immat Gran (auto) (0.00-0.03) X10*3/uL Absolute Neuts (auto) (2.0-8.3) x10*3/uL Absolute Nucleated RBC (0.0-0.012) X10*3/uL Nucleated RBC % (auto) (0.0-0.2) /100WBC PT (10.0-13.1) SEC INR (0.9-1.1) Sodium (135-145) mmol/L Potassium (3.3-5.1) mmol/L Chloride (96-108) mmol/L Carbon Dioxide (22-29) mmol/L Anion Gap (12-20) BUN (9-16) mg/dL Creatinine (0.5-1.4) mg/dL Estim Creat Clear Calc Estimated GFR Random Glucose (60-115) mg/dL Osmolality (281-305) mosm/kg Calcium (8.4-10.2) mg/dL Magnesium (1.6-2.6) mg/dL Total Bilirubin (0.0-1.0) mg/dL AST (5-31) U/L ALT (0-31) U/L Alkaline Phosphatase (39-117) U/L Troponin I High Sens 12.7 (<3.5-17.0) ng/L B-Natriuretic Peptide < 10 (<100) pg/mL Total Protein (6.5-8.0) g/dL Albumin (3.5-5.0) g/dL Influenza Type A (PCR) NEGATIVE (Negative) Influenza Type B (PCR) NEGATIVE (Negative) RSV RNA Qual (PCR) NEGATIVE (Negative) SARS-CoV-2 RNA (RT-PCR) NEGATIVE (Negative) 07/06/22 07/06/22 Range/Units 14:50 20:44 WBC (4.8-10.8) X10*3/uL RBC (4.20-5.50) X10*6/uL Hgb (12.0-16.0) g/dl Hct (37.0-47.0) % MCV (80.0-98.0) fL MCH (27.0-33.0) pg MCHC (31.0-35.0) g/dl RDW (11.0-16.0) % Plt Count (160-400) X10*3/uL MPV (9.4-12.3) fL Immature Gran % (Auto) (0.0-0.4) % Neut % (Auto) (45-73) % Lymph % (Auto) (20-40) % [place] % (Auto) (2-11) % Eos % (Auto) (0-4) % Baso % (Auto) (0-2) % Lymph # (Auto) (1.2-4.9) X10*3/uL [place] # (Auto) (0.1-1.2) X10*3/uL Eos # (Auto) (0.0-0.4) X10*3/uL Baso # (Auto) (0.0-0.2) X10*3/uL Abs Immat Gran (auto) (0.00-0.03) X10*3/uL Absolute Neuts (auto) (2.0-8.3) x10*3/uL Absolute Nucleated RBC (0.0-0.012) X10*3/uL Nucleated RBC % (auto) (0.0-0.2) /100WBC PT (10.0-13.1) SEC INR (0.9-1.1) Sodium (135-145) mmol/L Potassium (3.3-5.1) mmol/L Chloride (96-108) mmol/L Carbon Dioxide (22-29) mmol/L Anion Gap (12-20) BUN (9-16) mg/dL Creatinine (0.5-1.4) mg/dL Estim Creat Clear Calc Estimated GFR Random Glucose (60-115) mg/dL Osmolality 282 (281-305) mosm/kg Calcium (8.4-10.2) mg/dL Magnesium (1.6-2.6) mg/dL Total Bilirubin (0.0-1.0) mg/dL AST (5-31) U/L ALT (0-31) U/L Alkaline Phosphatase (39-117) U/L Troponin I High Sens 4.2 D (<3.5-17.0) ng/L B-Natriuretic Peptide (<100) pg/mL Total Protein (6.5-8.0) g/dL Albumin (3.5-5.0) g/dL Influenza Type A (PCR) (Negative) Influenza Type B (PCR) (Negative) RSV RNA Qual (PCR) (Negative) SARS-CoV-2 RNA (RT-PCR) (Negative) Independent Interpretation I performed an independent interpretation of an: Plain X-Ray Interpretation: Agree with Radiology interpretation of no focal infiltrate Radiology Impression Discussion of test interpretation with radiology: I have reviewed the radiologist's reading. Discharge Plan Discharge Clinical Impression: Acute hyponatremia Patient Disposition: Admitted As Inpatient
[2022-07-06 21:19] LABS: Troponin-I High Sensitivity 4.2 ng/L (<3.5-17.0)
--- NOTE | 2022-07-06 22:07 | P.HPHOSP_ITS ---
History of Present Illness Date of Service: 07/06/22 Attending physician on admission: Jerod Castano Chief Complaint: Increasing SOB Pt is a 62-year-old female with a PMH significant for?DVT in right upper extremity on warfarin, COPD, seizure disorder, HTN, and HLD who presents to the ED with increasing SOB and cough for the past 2 weeks and foul-smelling diarrhea for the past 4 days. Patient states that she tested positive for COVID on 06/13/2022 and was treated with a 3 day course of Remdesivir at [facility]. Patient states that she felt better for a few days, however her symptoms soon returned and she was again having a persistent, occasionally productive cough, SOB, and fatigue. Patient notes that occasionally he is incontinent of urine from coughing so much, and has rib pain and left-sided pleuritic chest pain from cough. On Sunday of this week patient developed uncontrollable, foul-smelling diarrhea. Patient states she has been drinking as much water as possible, but has had reduced intake of solids. Patient also been taking vitamins and supplements such as elderberry and Airborne in the hopes of feeling better. Patient admits to being very fatigued and just wants to feel better. Denies fever, chills, nausea, vomiting. No chest pressure, palpitations. Occasional headaches. In the ED patient was afebrile, satting at 94% on room air. Labs were sig nificant for hyponatremia of 124. CXR showed no acute cardiopulmonary process. CTA of chest, pending. CT of abdomen pelvis, pending. EKG demonstrated normal sinus rhythm with no ST elevations or depressions. Pt was treated with IVF. Pt will be admitted to the hospital to observation for treatment and further evaluation of hyponatremia, COPD exacerbation, and intractable diarrhea of unknown etiology. Review of Systems Review of Systems: Worsening shortness of breath and cough x2 weeks Foul-smelling diarrhea x4 days Headache Shortness of breath Left-sided pleuritic chest pain Denies fever, chills, nausea, vomiting Chest pressure, palpitations Yes all other systems are reviewed and are negative [facility] Medical History (Updated 07/06/22 @ 22:59 by OLGA Lang) Cerebral aneurysm COPD exacerbation Seizures Social History Alcohol intake: never Smoked in Last 30 Days: No Use of substances other than those prescribed or required for medical reasons: No Advance Directives: No Patient : No Meds Allergies Allergy/AdvReac Type Severity Reaction Status Date / Time codeine [CODEINE] Allergy Unknown SWELLING Verified 07/06/22 14:28 phenytoin [Dilantin] Allergy Unknown Rash Verified 07/06/22 14:28 Codeine Phosphate Allergy Unknown Swelling Uncoded 07/06/22 14:28 From DILANTIN Allergy Unknown ITCHY Uncoded 07/06/22 14:28 Active Medications: Current Medications Pharmacy Consult (Consult Rx Perform Med Rec) 1 each MISCELLANE ONCE PRN PRN Reason: Consult order Pharmacy Consult (Consult Rx Perform Med Rec) 1 each MISCELLANE ONCE PRN PRN Reason: Consult order Home Medications Medication Instructions Recorded Confirmed Last Taken Type amlodipine 10 mg tablet 10 mg PO DAILY 05/11/22 Unknown History carbamazepine 200 mg tablet mg PO 05/11/22 Unknown History ezetimibe 10 mg tablet 10 mg PO DAILY 05/11/22 Unknown History fluoxetine 20 mg capsule 40 mg PO DAILY 05/11/22 Unknown History gabapentin 100 mg capsule mg PO 05/11/22 Unknown History latanoprost 0.005 % eye drops 0 drp ophthalmic (eye) 05/11/22 Unknown History rosuvastatin 5 mg tablet 5 mg PO DAILY 05/11/22 Unknown History umeclidinium 62.5 mcg-vilanterol 1 ea inhalation DAILY 05/11/22 Unknown History 25 mcg/actuation powdr for inhalation (Anoro Ellipta) warfarin 4 mg tablet mg PO 05/11/22 Unknown History Physical Exam Vital Signs and Narrative: Vital Signs: Last Vital Signs Temp 98.4 F 07/06/22 20:23 Pulse 76 07/06/22 20:23 Resp 15 07/06/22 20:23 BP 159/77 H 07/06/22 20:23 Pulse Ox 94 07/06/22 20:23 O2 Del Method 07/06/22 20:23 BMI result Body Mass Index 31.1 Constitutional: Patient is sitting in bed, alert, uncomfortable, in mild respiratory distress. Mental Status: Oriented to person, place and time. Eyes: Pupils are equal, round, and reactive to light. Ear, Nose, and Throat: Oropharynx clear, mucous membranes moist. Ears and nose without deformities. Trachea midline. Respiratory: Diffuse expiratory wheezing bilaterally. Cardiovascular: S1, S2 regular. No murmurs, rubs, or gallops. Gastrointestinal: Abdomen soft, non-tender, non-distended. Normal bowel sounds. Neurologic: Cranial nerves II-XII are grossly intact. No focal neurological deficits. Moves all extremities spontaneously. Skin: No rashes or lesions noted. Musculoskeletal: No cyanosis or clubbing. Extremities: No edema. Psychiatric: Normal mood and affect. Results Labs 07/06/22 14:50 07/06/22 14:50 Labs: Laboratory Results - last 24 hr 07/06/22 07/06/22 07/06/22 14:50 14:50 14:50 MCV 91.9 MCH 30.9 MCHC 33.6 RDW 13.2 Plt Count 258 MPV 8.9 L Immature Gran % (Auto) 0.3 Neut % (Auto) 61.0 Lymph % (Auto) 28.0 [place] % (Auto) 10.0 Eos % (Auto) 0.3 Baso % (Auto) 0.4 Lymph # (Auto) 1.9 [place] # (Auto) 0.7 Eos # (Auto) 0.0 Baso # (Auto) 0.0 Abs Immat Gran (auto) 0.02 Absolute Neuts (auto) 4.1 Absolute Nucleated RBC 0.000 Nucleated RBC % (auto) 0.0 PT 27.5 H INR 2.3 H Anion Gap 14 Estim Creat Clear Calc 75.1 Estimated GFR > 60 Random Glucose 99 Calcium 8.7 Magnesium 1.9 Total Bilirubin 0.3 AST 34 H ALT 21 Alkaline Phosphatase 97 Troponin I High Sens B-Natriuretic Peptide Total Protein 7.1 Albumin 4.2 Influenza Type A (PCR) Influenza Type B (PCR) RSV RNA Qual (PCR) SARS-CoV-2 RNA (RT-PCR) 07/06/22 07/06/22 07/06/22 14:50 14:50 14:50 MCV MCH MCHC RDW Plt Count MPV Immature Gran % (Auto) Neut % (Auto) Lymph % (Auto) [place] % (Auto) Eos % (Auto) Baso % (Auto) Lymph # (Auto) [place] # (Auto) Eos # (Auto) Baso # (Auto) Abs Immat Gran (auto) Absolute Neuts (auto) Absolute Nucleated RBC Nucleated RBC % (auto) PT INR Anion Gap Estim Creat Clear Calc Estimated GFR Random Glucose Calcium Magnesium Total Bilirubin AST ALT Alkaline Phosphatase Troponin I High Sens 12.7 B-Natriuretic Peptide < 10 Total Protein Albumin Influenza Type A (PCR) NEGATIVE Influenza Type B (PCR) NEGATIVE RSV RNA Qual (PCR) NEGATIVE SARS-CoV-2 RNA (RT-PCR) NEGATIVE 07/06/22 20:44 MCV MCH MCHC RDW Plt Count MPV Immature Gran % (Auto) Neut % (Auto) Lymph % (Auto) [place] % (Auto) Eos % (Auto) Baso % (Auto) Lymph # (Auto) [place] # (Auto) Eos # (Auto) Baso # (Auto) Abs Immat Gran (auto) Absolute Neuts (auto) Absolute Nucleated RBC Nucleated RBC % (auto) PT INR Anion Gap Estim Creat Clear Calc Estimated GFR Random Glucose Calcium Magnesium Total Bilirubin AST ALT Alkaline Phosphatase Troponin I High Sens 4.2 D B-Natriuretic Peptide Total Protein Albumin Influenza Type A (PCR) Influenza Type B (PCR) RSV RNA Qual (PCR) SARS-CoV-2 RNA (RT-PCR) Imaging Radiologist's Impressions: Impressions Chest X-Ray 07/06/22 14:36 IMPRESSION: No acute cardiopulmonary process. Assessment and Plan (1) Hyponatremia: Status: Acute (2) Diarrhea: Status: Acute Plan Pt is a 62-year-old female with a PMH significant for?DVT in right upper extremity on warfarin, COPD, seizure disorder, HTN, and HLD who presents to the ED with increasing SOB and cough for the past 2 weeks and foul-smelling diarrhea for the past 4 days. Pt will be admitted to observation for treatment and further evaluation of COPD exacerbation, hyponatremia, and diarrhea of unknown etiology. Acute respiratory distress due to COPD exacerbation Patient has had progressive SOB, fatigue, and cough for over 2 weeks Patient has not been using her home inhaler lately DuoNebs q4 while awake Solu-Medrol 40 mg IV q.12 Continue benzonatate Continue home inhaler CTA of chest, pending Diarrhea Patient has been complaining of foul-smelling diarrhea since Sunday Test for C Diff, pending Stool panel, pending Test for Legionella, pending CT of abdomen and pelvis, pending Follow BMP Hyponatremia Patient's sodium 124 at time of presentation Likely secondary to GI lossses IVF: normal saline Urine osmolality, urine sodium, serum osmolality Repeat BMP tomorrow History of DVT Patient had DVT in August 2021 in upper right extremity, base of her brain, and in her heart, unclear etiology Continue warfarin Seizure disorder Patient has not had a seizure since 1987 Continue carbamazepine HTN Continue home meds HLD Continue home meds Full Code Attending:?Dr. Castano DVT Prophylaxis: Pt on warfarin Pt will be admitted to observation for treatment and further evaluation of COPD exacerbation, hyponatremia, and diarrhea of unknown etiology. Time Spent With Patient Time: Total time managing care of this patient today ____ minutes. Quality Stroke Does the patient have a stroke diagnosis?: No VTE Prior VTE?: Yes Approximate Date of Prior VTE: 08/19/21 VTE Risk Level:: Medical - moderate - high VTE Device Contraindication: Treatment Not Indicated VTE Drug Contraindication: N/A - Med Ordered
[2022-07-06] MEDS: 0.9 % Sodium Chloride 500 ML IV (22:16)
[2022-07-06 22:30] VITALS: BP 147/77; PULSE 71; RESP 18; TEMP 36.7; O2SAT 94
[2022-07-06 23:24] LABS: Osmolality, Serum 282 mosm/kg (281-305)
[2022-07-06] MEDS: methylPREDNISolone Sod Succ 40 MG/ML VIAL IVPUSH (23:59)
[2022-07-07] MEDS: iohexoL 350 MG/ML 100 ML INFUS..BTL 65 ML IV (00:10)
[2022-07-07] MEDS: 0.9 % Sodium Chloride Flush 3 ML SYRINGE IVFLUSH ×2 (00:13→07:20)
--- NOTE | 2022-07-07 01:46 | PC.NURSE ---
med rec completed
[2022-07-07 04:56] VITALS: BP 151/68; PULSE 70; RESP 24; TEMP 36.6; O2SAT 91
[2022-07-07 06:03] LABS: MANUAL DIFF FLAG NO
[2022-07-07 06:06] LABS: Basophils Percent Auto 0.2 % (0-2); Hematocrit 41.1 % (37.0-47.0); Imm Gran Abs Auto 0.02 X10*3/uL (0.00-0.03); Imm Gran Pct Auto 0.4 % (0.0-0.4); Lymphocytes Absolute Auto 1.4 X10*3/uL (1.2-4.9); Lymphocytes Percent Auto 27.6 % (20-40); Mean Corpuscular HGB Conc 34.1 g/dl (31.0-35.0); Mean Corpuscular Hemoglobin 31.1 pg (27.0-33.0); Mean Corpuscular Volume 91.3 fL (80.0-98.0); Mean Platelet Volume 9.1 fL (9.4-12.3); Monocytes Absolute Auto 0.3 X10*3/uL (0.1-1.2); Monocytes Percent Auto 4.8 % (2-11); Neutrophils Absolute Auto 3.5 x10*3/uL (2.0-8.3); Platelet Count 234 X10*3/uL (160-400); Red Cell Distribution Width 13.2 % (11.0-16.0); White Blood Count 5.2 X10*3/uL (4.8-10.8)
[2022-07-07 06:19] LABS: Anion Gap 15 (12-20); Blood Urea Nitrogen 10 mg/dL (9-16); Calcium 8.8 mg/dL (8.4-10.2); Carbon Dioxide 20 mmol/L (22-29); Chloride 107 mmol/L (96-108); Creatinine Clr Calc Pharmacy 79.6; Estimated Glomerular Filt Rate > 60; Glucose Random 140 mg/dL (60-115); Potassium 4.4 mmol/L (3.3-5.1); Sodium 138 mmol/L (135-145)
--- NOTE | 2022-07-07 07:32 | PC.NURSE ---
Patient had episode of urinary incontinence, ao x 4 some agitation noted easily redirected. LS clear no distress noted Neuros intact SORENSEN with purpose. Will CTM
[2022-07-07 07:43] VITALS: PULSE 61; RESP 18; O2SAT 90
--- NOTE | 2022-07-07 08:04 | PHA.MEDREC ---
Pharmacy Consult ? Medication Reconciliation Pharmacy has completed the medication reconciliation.
--- NOTE | 2022-07-07 08:43 | PC.NURSE ---
Patient up ambulatory to bathroom independently will CTM
--- NOTE | 2022-07-07 09:18 | PC.NURSE ---
Visitor at [facility], resting comfortably will CTM
--- NOTE | 2022-07-07 09:29 | PM.CNPUL ---
History of Present Illness History of Present Illness Consult date: 07/07/22 Chief complaint: Dyspnea Narrative: This is an inpatient pulmonary consultation. Pt is a 62-year-old female with a PMH significant for?DVT in right upper extremity on warfarin, COPD, seizure disorder, HTN, and HLD? who presents to the ED with increasing SOB and cough for the past 2 weeks and foul-smelling diarrhea for the past 4 days.? Patient states that she tested positive for COVID on 06/13/2022 and was treated with a 3 day course of Remdesivir at [facility].? Patient states that she felt better for a few days, however her symptoms soon returned and she was again having a persistent, occasionally productive cough, SOB, and fatigue.? Patient notes that occasionally he is incontinent of urine from coughing so much, and has rib pain and left-sided pleuritic chest pain from cough. On Sunday of this week patient developed uncontrollable, foul-smelling diarrhea.? The patient did have a CT scan of the abdomen and of the chest while in the hospital. Her CT scan of the chest demonstrated multiple pulmonary nodules subcentimeter in nature. Largest nodule measuring 8 mm. She does state that she has underlying pulmonary nodules and she has follow-up [facility]. Therefore I did compare her CT scan to the 1 from [facility]. Patient seems to have what appears to be relatively stable nodules when compared to December of 2021. However, she did have new nodules in December. No significant lymphadenopathy noted. She does have extensive emphysema. She is also COVID. Therefore this point she can follow-up with her outpatient pulmonary physician to monitor and assess the nodules. Right now they are too small to perform any invasive diagnostic interventions. Review of Systems Review of Systems: Worsening shortness of breath and cough x2 weeks Foul-smelling diarrhea x4 days Headache Shortness of breath Left-sided pleuritic chest pain Denies fever, chills, nausea, vomiting Chest pressure, palpitations Yes all other systems are reviewed and are negative [facility] Past Medical History Medical History (Updated 07/07/22 @ 09:34 by Josue Andrade MD) Cerebral aneurysm COPD exacerbation Pulmonary nodules Seizures Social History Social History Alcohol intake: never Patient Tobacco Use Status: Former Tobacco user Smoked in Last 30 Days: No Use of substances other than those prescribed or required for medical reasons: No Advance Directives: No Nutrition Risks: No Nutritional Risk Patient : No Meds Allergies Allergy/AdvReac Type Severity Reaction Status Date / Time codeine [CODEINE] Allergy Unknown SWELLING Verified 07/06/22 14:28 phenytoin [Dilantin] Allergy Unknown Rash Verified 07/06/22 14:28 Codeine Phosphate Allergy Unknown Swelling Uncoded 07/06/22 14:28 From DILANTIN Allergy Unknown ITCHY Uncoded 07/06/22 14:28 Active Medications: Current Medications Acetaminophen (Acetaminophen 325 Mg Tablet) 650 mg PO Q6H PRN PRN Reason: Pain, Mild (Pain Scale 1-3) Albuterol Sulfate 2.5 mg/ (Ipratropium [place] 0.5 mg) 0 mg INHALE RQ4H WHILE AWAKE [facility] Last Admin: 07/07/22 07:41 Dose: 1 each Albuterol Sulfate 2.5 mg/ (Ipratropium [place] 0.5 mg) 0 mg INHALE Q4H PRN PRN Reason: Wheezing Melatonin (Melatonin 3 Mg Tablet) 6 mg PO BEDTIME PRN PRN Reason: Insomnia Methylprednisolone Sodium Succinate (Methylprednisolone Sod Succ 40 Mg/Ml Vial) 40 mg IVPUSH Q12H [facility] Last Admin: 07/06/22 23:59 Dose: 40 mg Ondansetron HCl (Ondansetron Hcl 4 Mg/2 Ml Vial) 4 mg IVPUSH Q8H PRN PRN Reason: Nausea and Vomiting Pharmacy Consult (Consult Rx Perform Med Rec) 1 each MISCELLANE ONCE PRN PRN Reason: Consult order Sodium Chloride (0.9 % Sodium Chloride Flush 3 Ml Syringe) 3 ml IVFLUSH QSHIFT [facility] Last Admin: 07/07/22 07:20 Dose: 3 ml Home Medications Medication Instructions Recorded Confirmed Last Taken Type amlodipine 10 mg tablet 10 mg PO DAILY 05/11/22 07/07/22 Unknown History carbamazepine 200 mg tablet 200 mg PO TID 05/11/22 07/07/22 Unknown History fluoxetine 20 mg capsule 40 mg PO DAILY 05/11/22 07/07/22 Unknown History gabapentin 100 mg capsule 300 mg PO BID 05/11/22 07/07/22 Unknown History latanoprost 0.005 % eye drops 1 drp ophthalmic (eye) DAILY 05/11/22 07/07/22 Unknown History rosuvastatin 5 mg tablet 5 mg PO DAILY 05/11/22 07/07/22 Unknown History umeclidinium 62.5 mcg-vilanterol 1 ea inhalation DAILY 05/11/22 07/07/22 Unknown History 25 mcg/actuation powdr for inhalation (Anoro Ellipta) warfarin 4 mg tablet 4 mg PO SUMOWETHFR 05/11/22 07/07/22 Unknown History warfarin 4 mg tablet 6 mg PO TUSA 07/07/22 07/07/22 Unknown History Physical Exam Vital Signs: Vital Signs: Last Vital Signs Temp 97.9 F 07/07/22 04:56 Pulse 61 07/07/22 07:43 Resp 18 07/07/22 07:43 BP 151/68 H 07/07/22 04:56 Pulse Ox 91 L 07/07/22 04:56 O2 Del Method 07/07/22 04:56 BMI result Body Mass Index 31.1 Appearance: Alert.? Oriented X3.? No acute distress.? Head: Normocephalic, atraumatic, no step-offs or deformities Eyes: Pupils equal, round and reactive to light.? Neck: Normal inspection.? Neck supple.? CVS: Normal heart rate and rhythm.? Pulses normal.? Respiratory: No respiratory distress.? dimished Abdomen: Soft and nontender.? Skin: Skin warm and dry.? Normal skin color.? Normal skin turgor.? Extremities: No lower extremity edema.? No calf ttp, negative Zenaida bilaterally. 5/5 strength to bilateral upper and lower extremities Neuro: Oriented X 3.? No motor deficit.? No sensory deficit. CN 2-12 intact Results Laboratory Findings 07/07/22 05:35 07/07/22 05:35 ABG, PT/INR, D-dimer: PT/INR, D-dimer PT 27.5 SEC (10.0-13.1) H 07/06/22 14:50 INR 2.3 (0.9-1.1) H 07/06/22 14:50 Abnormal lab findings: Abnormal Labs 07/06/22 07/06/22 07/06/22 14:50 14:50 14:50 MPV 8.9 L PT 27.5 H INR 2.3 H Sodium 124 L Carbon Dioxide 18 L Random Glucose AST 34 H 07/07/22 07/07/22 05:35 05:35 MPV 9.1 L PT INR Sodium Carbon Dioxide 20 L Random Glucose 140 H AST Assessment and Plan (1) COPD exacerbation: Status: Acute (2) Metabolic acidemia: Status: Acute (3) Pulmonary nodules: Status: Acute Plan Venous gas and lactate levels continue solumedrol Respiratory therapy Needs to follow up with out pt pulmonary re: pulmonary nodules. The pulmonary nodules are fairly stable from 12/2021. She does have extensive emphysema Time Spent With Patient Time: Total time managing care of this patient today ____ minutes. Procedures Date of Service Date of Service: 07/07/22
--- NOTE | 2022-07-07 10:25 | PC.NURSE ---
Inpatient phlebotomy at bedside
[2022-07-07 10:35] VITALS: BP 134/68; PULSE 75; RESP 18; O2SAT 92
[2022-07-07] MEDS: Atorvastatin Calcium 20 MG TABLET PO (10:35)
[2022-07-07] MEDS: Gabapentin 300 MG CAPSULE PO (10:35)
[2022-07-07] MEDS: FLUoxetine HCl 20 MG CAPSULE 40 MG PO (10:36)
[2022-07-07] MEDS: amLODIPine Besylate 10 MG TABLET PO (10:36)
[2022-07-07] MEDS: methylPREDNISolone Sod Succ 40 MG/ML VIAL IVPUSH (10:36)
[2022-07-07 10:37] LABS: Venous Blood Gas Refer to POC result
[2022-07-07 10:40] LABS: VBG Base Excess -3.3 mmol/L; VBG HCO3 19 mmol/L (22-26); VBG pCO2 29 mmHg; VBG pH 7.42 (7.32-7.43); VBG pO2 137 mmHg
[2022-07-07] MEDS: carBAMazepine 200 MG TABLET PO (10:40)
[2022-07-07 10:43] LABS: INTERNATIONAL NORM RATIO 2.3 (0.9-1.1); Prothrombin Time 26.8 SEC (10.0-13.1)
[2022-07-07 10:56] LABS: Lactic Acid 2.4 mmol/L (0.5-2.0)
[2022-07-07 12:37] LABS: Reflex Lactate? Lactic Acid Added
--- NOTE | 2022-07-07 13:40 | PM.DS ---
DS: Providers Provider Date of Service: 07/07/22 Date of admission: 07/06/22 22:30 Date of discharge: 07/07/22 Primary care physician: Jose Kumar MD Consults: 07/07/22 04:41 Consult to Pulmonology Routine Consulting Provider: Josue Andrade Reason for consultation: ?lung nodules ?mets Attending physician on discharge: John Frye Discharging clinician: Emily Clark DS: Diagnosis Discharge Diagnosis (1) COPD exacerbation: Status: Acute (2) Metabolic acidemia: Status: Acute (3) Pulmonary nodules: Status: Acute DS: Summary Hospital Course Hospital Course: From H&P on day of admission Pt is a 62-year-old female with a PMH significant for?DVT in right upper extremity on warfarin, COPD, seizure disorder, HTN, and HLD? who presents to the ED with increasing SOB and cough for the past 2 weeks and foul-smelling diarrhea for the past 4 days.? Patient states that she tested positive for COVID on 06/13/2022 and was treated with a 3 day course of Remdesivir at [facility].? Patient states that she felt better for a few days, however her symptoms soon returned and she was again having a persistent, occasionally productive cough, SOB, and fatigue.? Patient notes that occasionally he is incontinent of urine from coughing so much, and has rib pain and left-sided pleuritic chest pain from cough. On Sunday of this week patient developed uncontrollable, foul-smelling diarrhea.? Patient states she has been drinking as much water as possible, but has had reduced intake of solids.? Patient also been taking vitamins and supplements such as elderberry and Airborne in the hopes of feeling better.? Patient admits to being very fatigued and just wants to feel better. Denies fever, chills, nausea, vomiting.? No chest pressure, palpitations.? Occasional headaches. In the ED patient was afebrile, satting at 94% on room air. Labs were significant for hyponatremia of 124. CXR showed no acute cardiopulmonary process.? CTA of chest, pending. CT of abdomen pelvis, pending.? EKG demonstrated normal sinus rhythm with no ST elevations or depressions. Pt was treated with IVF. Pt will be admitted to the hospital to observation for treatment and further evaluation of hyponatremia, COPD exacerbation, and intractable diarrhea of unknown etiology. acute COPD exacerbation. patient had no hypoxia. No significant wheezing today. She was treated initially with a systemic IV steroids and as needed breathing treatments. She will be discharged home to complete a short burst of oral prednisone. Pulmonary nodules seen on CTA seems similar to baseline. Recommend follow-up with primary pharmacy student. Diarrhea. No further diarrhea therefore C diff testing not performed. No abdominal pain, fever. Hyponatremia, likely secondary to GI losses/dehydration. Sodium level normalized with gentle IVF abnormal appearance of pancreas. Nonspecific regions of low density in the pancreatic head for which correlation with MRI with and without IV contrast/ MRCP pancreatic mass protocol is recommended to further characterize. Patient is unable to have MRI given metal plate in her head. no abdominal pain. Recommend outpatient CT scan with and without contrast for further characterization. Time Spent with Patient Time attestation: Total time managing care of this patient today ____ minutes. Discharge coordination time: Greater than 30 minutes Quality: Safe Use of Opioids Does Pt have an Active Cancer Diagnosis on the Problem List?: No Quality: Stroke Does the patient have a stroke diagnosis?: No Physical Exam Vital Signs: Vital Signs: Last Vital Signs Temp 97.9 F 07/07/22 04:56 Pulse 75 07/07/22 10:35 Resp 18 07/07/22 10:35 BP 134/68 07/07/22 10:35 Pulse Ox 92 07/07/22 10:35 O2 Del Method 07/07/22 10:35 BMI result Body Mass Index 31.1 Const: General: cooperative, comfortable, no acute distress, alert and awake Nutritional Appearance: average body habitus Orientation/consciousness: patient oriented x3 Resp: Effort & Inspection: normal respiratory effort and able to speak in complete sentences Auscultation: clear to auscultation bilaterally Cardio: Rate: regular rate Heart sounds: S1 normal heart sound present and S2 normal heart sound present GI: Inspection: No distended Palpation (GI): Soft to palpation Neuro: General: patient oriented x3 and CN's II-XI intact bilaterally Extrem: General: Yes no pedal edema DS: Data Data Completed and Pending Labs on day of discharge: Laboratory Results - last 24 hr 07/06/22 07/06/22 07/06/22 14:50 14:50 14:50 WBC 6.7 RBC 4.59 Hgb 14.2 Hct 42.2 MCV 91.9 MCH 30.9 MCHC 33.6 RDW 13.2 Plt Count 258 MPV 8.9 L Immature Gran % (Auto) 0.3 Neut % (Auto) 61.0 Lymph % (Auto) 28.0 [place] % (Auto) 10.0 Eos % (Auto) 0.3 Baso % (Auto) 0.4 Lymph # (Auto) 1.9 [place] # (Auto) 0.7 Eos # (Auto) 0.0 Baso # (Auto) 0.0 Abs Immat Gran (auto) 0.02 Absolute Neuts (auto) 4.1 Absolute Nucleated RBC 0.000 Nucleated RBC % (auto) 0.0 PT 27.5 H INR 2.3 H VBG pH VBG pCO2 VBG pO2 VBG HCO3 VBG O2 Saturation VBG Base Excess Sodium 124 L Potassium 3.8 Chloride 96 Carbon Dioxide 18 L Anion Gap 14 BUN 13 Creatinine 0.70 Estim Creat Clear Calc 75.1 Estimated GFR > 60 Random Glucose 99 Osmolality Lactic Acid Calcium 8.7 Magnesium 1.9 Total Bilirubin 0.3 AST 34 H ALT 21 Alkaline Phosphatase 97 Troponin I High Sens B-Natriuretic Peptide Total Protein 7.1 Albumin 4.2 Influenza Type A (PCR) Influenza Type B (PCR) RSV RNA Qual (PCR) SARS-CoV-2 RNA (RT-PCR) 07/06/22 07/06/22 07/06/22 14:50 14:50 14:50 WBC RBC Hgb Hct MCV MCH MCHC RDW Plt Count MPV Immature Gran % (Auto) Neut % (Auto) Lymph % (Auto) [place] % (Auto) Eos % (Auto) Baso % (Auto) Lymph # (Auto) [place] # (Auto) Eos # (Auto) Baso # (Auto) Abs Immat Gran (auto) Absolute Neuts (auto) Absolute Nucleated RBC Nucleated RBC % (auto) PT INR VBG pH VBG pCO2 VBG pO2 VBG HCO3 VBG O2 Saturation VBG Base Excess Sodium Potassium Chloride Carbon Dioxide Anion Gap BUN Creatinine Estim Creat Clear Calc Estimated GFR Random Glucose Osmolality Lactic Acid Calcium Magnesium Total Bilirubin AST ALT Alkaline Phosphatase Troponin I High Sens 12.7 B-Natriuretic Peptide < 10 Total Protein Albumin Influenza Type A (PCR) NEGATIVE Influenza Type B (PCR) NEGATIVE RSV RNA Qual (PCR) NEGATIVE SARS-CoV-2 RNA (RT-PCR) NEGATIVE 07/06/22 07/06/22 07/07/22 14:50 20:44 05:35 WBC 5.2 RBC 4.50 Hgb 14.0 Hct 41.1 MCV 91.3 MCH 31.1 MCHC 34.1 RDW 13.2 Plt Count 234 MPV 9.1 L Immature Gran % (Auto) 0.4 Neut % (Auto) 67.0 Lymph % (Auto) 27.6 [place] % (Auto) 4.8 Eos % (Auto) 0.0 Baso % (Auto) 0.2 Lymph # (Auto) 1.4 [place] # (Auto) 0.3 Eos # (Auto) 0.0 Baso # (Auto) 0.0 Abs Immat Gran (auto) 0.02 Absolute Neuts (auto) 3.5 Absolute Nucleated RBC 0.000 Nucleated RBC % (auto) 0.0 PT INR VBG pH VBG pCO2 VBG pO2 VBG HCO3 VBG O2 Saturation VBG Base Excess Sodium Potassium Chloride Carbon Dioxide Anion Gap BUN Creatinine Estim Creat Clear Calc Estimated GFR Random Glucose Osmolality 282 Lactic Acid Calcium Magnesium Total Bilirubin AST ALT Alkaline Phosphatase Troponin I High Sens 4.2 D B-Natriuretic Peptide Total Protein Albumin Influenza Type A (PCR) Influenza Type B (PCR) RSV RNA Qual (PCR) SARS-CoV-2 RNA (RT-PCR) 07/07/22 07/07/22 07/07/22 05:35 10:31 10:31 WBC RBC Hgb Hct MCV MCH MCHC RDW Plt Count MPV Immature Gran % (Auto) Neut % (Auto) Lymph % (Auto) [place] % (Auto) Eos % (Auto) Baso % (Auto) Lymph # (Auto) [place] # (Auto) Eos # (Auto) Baso # (Auto) Abs Immat Gran (auto) Absolute Neuts (auto) Absolute Nucleated RBC Nucleated RBC % (auto) PT 26.8 H INR 2.3 H VBG pH VBG pCO2 VBG pO2 VBG HCO3 VBG O2 Saturation VBG Base Excess Sodium 138 Potassium 4.4 Chloride 107 Carbon Dioxide 20 L Anion Gap 15 BUN 10 Creatinine 0.66 Estim Creat Clear Calc 79.6 Estimated GFR > 60 Random Glucose 140 H Osmolality Lactic Acid 2.4 H* Calcium 8.8 Magnesium Total Bilirubin AST ALT Alkaline Phosphatase Troponin I High Sens B-Natriuretic Peptide Total Protein Albumin Influenza Type A (PCR) Influenza Type B (PCR) RSV RNA Qual (PCR) SARS-CoV-2 RNA (RT-PCR) 07/07/22 10:35 WBC RBC Hgb Hct MCV MCH MCHC RDW Plt Count MPV Immature Gran % (Auto) Neut % (Auto) Lymph % (Auto) [place] % (Auto) Eos % (Auto) Baso % (Auto) Lymph # (Auto) [place] # (Auto) Eos # (Auto) Baso # (Auto) Abs Immat Gran (auto) Absolute Neuts (auto) Absolute Nucleated RBC Nucleated RBC % (auto) PT INR VBG pH 7.42 VBG pCO2 29 VBG pO2 137 VBG HCO3 19 L VBG O2 Saturation 99.0 VBG Base Excess -3.3 Sodium Potassium Chloride Carbon Dioxide Anion Gap BUN Creatinine Estim Creat Clear Calc Estimated GFR Random Glucose Osmolality Lactic Acid Calcium Magnesium Total Bilirubin AST ALT Alkaline Phosphatase Troponin I High Sens B-Natriuretic Peptide Total Protein Albumin Influenza Type A (PCR) Influenza Type B (PCR) RSV RNA Qual (PCR) SARS-CoV-2 RNA (RT-PCR) Imaging CT scan - chest: Radiologist's impression: ITS Impressions Chest X-Ray 07/06/22 14:36 IMPRESSION: No acute cardiopulmonary process. Abdomen/Pelvis CT 07/07/22 00:23 IMPRESSION: 1. No evidence of pulmonary emboli nor increased right-sided heart pressure. 2. Multiple solid rounded pulmonary nodules are concerning for malignancy, including metastatic disease. 3. Equivocal nonspecific regions of low density in the pancreatic head, for which correlation with an abdominal MRI with and without IV contrast/MRCP pancreatic mass protocol is recommended to further characterize. 4. Hilar lymphadenopathy. 5. Background of significant emphysema and possible early pulmonary fibrosis in the lung bases. 6. Colonic diverticulosis with no evidence of acute diverticulitis. VTE: negative This critical result was discussed with Dr. Perea at 07/07/2022 12:47 AM, specifically the findings of suspicious pulmonary nodules and abnormal appearance of the pancreatic head, and it was ascertained that the content of the report was understood at the time of direct communication. Chest CTA 07/07/22 00:23 IMPRESSION: 1. No evidence of pulmonary emboli nor increased right-sided heart pressure. 2. Multiple solid rounded pulmonary nodules are concerning for malignancy, including metastatic disease. 3. Equivocal nonspecific regions of low density in the pancreatic head, for which correlation with an abdominal MRI with and without IV contrast/MRCP pancreatic mass protocol is recommended to further characterize. 4. Hilar lymphadenopathy. 5. Background of significant emphysema and possible early pulmonary fibrosis in the lung bases. 6. Colonic diverticulosis with no evidence of acute diverticulitis. VTE: negative This critical result was discussed with Dr. Perea at 07/07/2022 12:47 AM, specifically the findings of suspicious pulmonary nodules and abnormal appearance of the pancreatic head, and it was ascertained that the content of the report was understood at the time of direct communication. Discharge Plan Discharge Patient Disposition: Home, Self-Care Discharge Diagnosis: COPD exacerbation hyponatremia diarrhea Referrals: Jose Kumar MD [Primary Care Provider] - 1 Week Discharge Medications: New prednisone 20 mg tablet 40 mg PO DAILY 4 Days Qty: 8 0RF Continued warfarin 4 mg tablet 6 mg PO TUSA albuterol sulfate 90 mcg/actuation HFA aerosol inhaler 2 puff inhalation Q6H PRN (Reason: shortness of breath or wheezing) Qty: 6.7 1RF latanoprost 0.005 % drops 1 drp ophthalmic (eye) DAILY warfarin 4 mg tablet 4 mg PO SUMOWETHFR gabapentin 100 mg capsule 300 mg PO BID fluoxetine 20 mg capsule 40 mg PO DAILY amlodipine 10 mg tablet 10 mg PO DAILY rosuvastatin 5 mg tablet 5 mg PO DAILY carbamazepine 200 mg tablet 200 mg PO TID Anoro Ellipta 62.5-25 mcg/actuation blister with device 1 ea inhalation DAILY Discharge Orders: Discharge Order (Routine); Ordered 07/07/22 Ordered By: Emily Clark Activity on Discharge: As tolerated Stand Alone Forms: Patient Portal Discharge page Care Plan Goals: see below Health Concerns: shortness of breath diarrhea low sodium levels lung nodule possible abnormal appearance of pancreas on imagin Plan of Treatment: acute COPD exacerbation. No hypoxia. Take prednisone as prescribed. sodium levels back to normal diarrhea improving lung nodules appear stable - follow up with primary pharmacy student recommend CT scan with and without contrast for further characterization of pancreas since you are unable to have MRI. Discuss with PCP Assessment: see discharge summary Discharge Date/Time: 07/07/22 15:00
--- NOTE | 2022-07-07 13:45 | MHC.CM.PN ---
pt being dcd home no skilled services ordered by
--- NOTE | 2022-07-07 14:10 | MHC.CM.PN ---
Patient has been medically cleared for dc to home today, self care.
== END 2022-07-07 15:00 | disposition home or self-care (01) ==
LOC: HO.ED 20:07 → HO.EDOVER 22:35 → HO.S3 07-07 13:18 → HO.EDOVER 07-07 14:00
PROVIDERS: Hospitalist; Physician Assistant Medical; Admitting Provider Student in an Organized Health Care Education/Training Program; Emergency Provider Emergency Medicine; PCP Internal Medicine; Visit Provider Physician Assistant Medical
DX: J44.1 Chronic obstructive pulmonary disease with (acute) exacerbation (principal); E87.1 Hypo-osmolality and hyponatremia; P19.9 Metabolic acidemia in newborn, unspecified; R19.7 Diarrhea, unspecified; R91.8 Other nonspecific abnormal finding of lung field; I82.621 Acute embolism and thrombosis of deep veins of right upper extremity; G40.909 Epilepsy, unspecified, not intractable, without status epilepticus; I10 Essential (primary) hypertension; E78.5 Hyperlipidemia, unspecified; R05.9 Cough, unspecified; Z79.01 Long term (current) use of anticoagulants; Z20.822 Contact with and (suspected) exposure to COVID-19
CPT/HCPCS: 0241U; 36415; 71046; 71275; 74177; 80048; 80053; 82803; 83605; 83735; 83880; 83930; 84484; 85025; 85610; 93005; 94640; 96361; 96374; 96376; 99221; 99285; J2920; Q9967

== ENCOUNTER 2023-04-14 03:37 | Emergency (ER) | payer OTHER, SELFPAY ==
[2023-04-14 03:42] VITALS: BP 167/77; PULSE 83; RESP 18; TEMP 37.3; O2SAT 95; BMI 30.7
[2023-04-14 04:03] LABS: MANUAL DIFF FLAG NO
[2023-04-14 04:04] LABS: Basophils Percent Auto 0.4 % (0-2); Eosinophils Percent Auto 0.1 % (0-4); Hematocrit 42.2 % (37.0-47.0); Hemoglobin 14.5 g/dl (12.0-16.0); Imm Gran Abs Auto 0.03 X10*3/uL (0.00-0.03); Imm Gran Pct Auto 0.3 % (0.0-0.4); Lymphocytes Percent Auto 9.6 % (20-40); Mean Corpuscular HGB Conc 34.4 g/dl (31.0-35.0); Mean Corpuscular Volume 93.2 fL (80.0-98.0); Mean Platelet Volume 8.6 fL (9.4-12.3); Monocytes Absolute Auto 0.6 X10*3/uL (0.1-1.2); Monocytes Percent Auto 6.1 % (2-11); Neutrophils Absolute Auto 8.6 x10*3/uL (2.0-8.3); Neutrophils Percent Auto 83.5 % (45-73); Platelet Count 243 X10*3/uL (160-400); Red Blood Count 4.53 X10*6/uL (4.20-5.50); Red Cell Distribution Width 12.9 % (11.0-16.0); White Blood Count 10.3 X10*3/uL (4.8-10.8)
[2023-04-14 04:09] LABS: Prothrombin Time 48.4 SEC (11.1-13.3)
[2023-04-14 04:18] LABS: Alanine Aminotransferase 19 U/L (0-31); Albumin Level 4.2 g/dL (3.5-5.0); Alkaline Phosphatase 95 U/L (39-117); Anion Gap 14 (12-20); Aspartate Amino Transferase 24 U/L (5-31); Bilirubin Total 0.2 mg/dL (0.0-1.0); Blood Urea Nitrogen 22 mg/dL (9-16); Calcium 9.5 mg/dL (8.4-10.2); Carbon Dioxide 20 mmol/L (22-29); Chloride 107 mmol/L (96-108); Creatinine Clr Calc Pharmacy 61.8; Estimated Glomerular Filt Rate > 60; Glucose Random 120 mg/dL (60-115); Potassium 4.1 mmol/L (3.3-5.1); Sodium 137 mmol/L (135-145); Total Protein 7.5 g/dL (6.5-8.0)
[2023-04-14 05:07] VITALS: BP 155/75; PULSE 72; RESP 20; TEMP 37.3; O2SAT 95
--- NOTE | 2023-04-14 05:12 | ED_ITS ---
HPI - General Adult General Chief complaint: General Medical Stated complaint: Not feeling well Time Seen by Provider: 04/14/23 05:12 Source: patient Mode of arrival: ambulatory Limitations: no limitations History of Present Illness HPI narrative: Patient's history of COPD, seizure disorder usually get sick after taking COVID vaccine last time patient's sodium was 124 in 07/06/2022 and was admitted in the hospital for 3 days yesterday patient took COVID vaccine and today she not feeling good vomiting multiple times with weakness patient does have similar symptoms every time and get the vaccine Related Data Home Medications Medication Instructions Recorded Confirmed amlodipine 10 mg tablet 10 mg PO DAILY 05/11/22 07/07/22 carbamazepine 200 mg tablet 200 mg PO TID 05/11/22 07/07/22 fluoxetine 20 mg capsule 40 mg PO DAILY 05/11/22 07/07/22 gabapentin 100 mg capsule 300 mg PO BID 05/11/22 07/07/22 latanoprost 0.005 % eye drops 1 drp ophthalmic (eye) DAILY 05/11/22 07/07/22 rosuvastatin 5 mg tablet 5 mg PO DAILY 05/11/22 07/07/22 umeclidinium 62.5 mcg-vilanterol 1 ea inhalation DAILY 05/11/22 07/07/22 25 mcg/actuation powdr for inhalation (Anoro Ellipta) warfarin 4 mg tablet 4 mg PO SUMOWETHFR 05/11/22 07/07/22 warfarin 4 mg tablet 6 mg PO TUSA 07/07/22 07/07/22 Previous Rx's Medication Instructions Recorded albuterol sulfate 90 mcg/actuation 2 puff inhalation Q6H PRN 07/07/22 aerosol inhaler shortness of breath or wheezing #6.7 grams prednisone 20 mg tablet 40 mg (2 x 20 mg) PO DAILY 4 days 07/07/22 #8 tabs Allergies Allergy/AdvReac Type Severity Reaction Status Date / Time codeine [CODEINE] Allergy Unknown SWELLING Verified 04/14/23 03:42 phenytoin [Dilantin] Allergy Unknown Rash Verified 04/14/23 03:42 Codeine Phosphate Allergy Unknown Swelling Uncoded 04/14/23 03:42 From DILANTIN Allergy Unknown ITCHY Uncoded 04/14/23 03:42 Review of Systems 2 Review of Systems: Yes all other systems are reviewed and are negative PMFSH Past Medical History Medical History Pulmonary nodules Seizures Cerebral aneurysm COPD exacerbation Social History Alcohol intake: never Patient Tobacco Use Status: Former Tobacco user Smoked in Last 30 Days: No Use of substances other than those prescribed or required for medical reasons: Yes Substance Use Type: Marijuana Substance Use Frequency: Occasionally Advance Directives: No Advance Directives Information Provided: Yes Patient : No Physical Exam ED Vital Signs: Vital Signs - 24 hr 04/14/23 03:42 04/14/23 05:07 Temperature 99.1 F 99.1 F Pulse Rate 83 72 Respiratory Rate 18 20 Blood Pressure 167/77 H 155/75 H Pulse Oximetry 95 95 Oxygen Delivery Method Room Air Room Air BMI result Body Mass Index 30.7 Appearance: Alert. Oriented X3. No acute distress. Eyes: PERRLA, No Nystagmus ENT: Pharynx normal. Oral Mucosa moist Neck: Normal inspection. Neck supple. CVS: Normal heart rate and rhythm. Pulses normal. Respiratory: No respiratory distress. Equal air entry bilateral, no wheezing/rales/rhonchi Abdomen: Soft and nontender. Bowel sounds are present, no mass palpable, no CVA tenderness Skin: Skin warm and dry. Normal skin color. Normal skin turgor. Extremities: No lower extremity edema. No calf tenderness Neuro: Oriented X 3. No motor deficit. No sensory deficit.No cerebellar signs , cranial nerves II-XII intact Medications Administered Discontinued Medications Generic Name Dose Route Start Last Admin Trade Name Freq PRN Reason Stop Dose Admin Sodium Chloride 1,000 mls @ 999 mls/hr 04/14/23 05:22 04/14/23 05:38 Ns IV 04/14/23 06:22 999 mls/hr .Q1H1M ONE Administration Ondansetron HCl 4 mg 04/14/23 05:22 04/14/23 05:40 Ondansetron Hcl 4 Mg/2 Ml Vial IVPUSH 04/14/23 05:23 4 mg ONCE ONE Administration Medical Decision Making Medical Decision Making [facility] Narrative: Patient with side effect of COVID vaccine as in the past labs are stable will give symptomatic treatment for nausea IV fluid Differential Diagnosis Differential Diagnoses: The differential diagnosis associated with the presentation includes As above Lab Data [facility] Lab Attestation statement: I reviewed the patient's lab results. 04/14/23 03:59 04/14/23 03:59 Labs: Lab Results 04/14/23 Range/Units 03:59 WBC 10.3 (4.8-10.8) X10*3/uL RBC 4.53 (4.20-5.50) X10*6/uL Hgb 14.5 (12.0-16.0) g/dl Hct 42.2 (37.0-47.0) % MCV 93.2 (80.0-98.0) fL MCH 32.0 (27.0-33.0) pg MCHC 34.4 (31.0-35.0) g/dl RDW 12.9 (11.0-16.0) % Plt Count 243 (160-400) X10*3/uL MPV 8.6 L (9.4-12.3) fL Immature Gran % (Auto) 0.3 (0.0-0.4) % Neut % (Auto) 83.5 H (45-73) % Lymph % (Auto) 9.6 L (20-40) % [place] % (Auto) 6.1 (2-11) % Eos % (Auto) 0.1 (0-4) % Baso % (Auto) 0.4 (0-2) % Lymph # (Auto) 1.0 L (1.2-4.9) X10*3/uL [place] # (Auto) 0.6 (0.1-1.2) X10*3/uL Eos # (Auto) 0.0 (0.0-0.4) X10*3/uL Baso # (Auto) 0.0 (0.0-0.2) X10*3/uL Abs Immat Gran (auto) 0.03 (0.00-0.03) X10*3/uL Absolute Neuts (auto) 8.6 H (2.0-8.3) x10*3/uL Absolute Nucleated RBC 0.000 (0.0-0.012) X10*3/uL Nucleated RBC % (auto) 0.0 (0.0-0.2) /100WBC PT 48.4 H (11.1-13.3) SEC INR 4.0 H (0.9-1.1) Sodium 137 (135-145) mmol/L Potassium 4.1 (3.3-5.1) mmol/L Chloride 107 (96-108) mmol/L Carbon Dioxide 20 L (22-29) mmol/L Anion Gap 14 (12-20) BUN 22 H (9-16) mg/dL Creatinine 0.81 (0.5-1.4) mg/dL Estim Creat Clear Calc 61.8 Estimated GFR > 60 Random Glucose 120 H (60-115) mg/dL Calcium 9.5 D (8.4-10.2) mg/dL Total Bilirubin 0.2 (0.0-1.0) mg/dL AST 24 (5-31) U/L ALT 19 (0-31) U/L Alkaline Phosphatase 95 (39-117) U/L Total Protein 7.5 (6.5-8.0) g/dL Albumin 4.2 (3.5-5.0) g/dL Discharge Plan Discharge Clinical Impression: Medication side effect Patient Disposition: Home, Self-Care Instructions: Adverse Drug Reaction (ED) Additional Instructions: Drink plenty of fluids Tylenol/Motrin for body aches Prescriptions: No Action warfarin 4 mg tablet 6 mg PO TUSA prednisone 20 mg tablet 40 mg PO DAILY 4 Days Qty: 8 0RF albuterol sulfate 90 mcg/actuation HFA aerosol inhaler 2 puff inhalation Q6H PRN (Reason: shortness of breath or wheezing) Qty: 6.7 1RF latanoprost 0.005 % drops 1 drp ophthalmic (eye) DAILY warfarin 4 mg tablet 4 mg PO SUMOWETHFR gabapentin 100 mg capsule 300 mg PO BID fluoxetine 20 mg capsule 40 mg PO DAILY amlodipine 10 mg tablet 10 mg PO DAILY rosuvastatin 5 mg tablet 5 mg PO DAILY carbamazepine 200 mg tablet 200 mg PO TID Anoro Ellipta 62.5-25 mcg/actuation blister with device 1 ea inhalation DAILY
[2023-04-14] MEDS: 0.9 % Sodium Chloride 1,000 ML 999 ML IV (05:38)
[2023-04-14] MEDS: ondansetron HCL 4 MG/2 ML VIAL IVPUSH (05:40)
--- NOTE | 2023-04-14 05:57 | PC.NURSE ---
pt resting comfortably with family at bedside, IVF stated. no apparent distress at this time
== END 2023-04-14 07:48 | disposition home or self-care (01) ==
PROVIDERS: Emergency Provider Internal Medicine; PCP Internal Medicine
DX: R53.1 Weakness (principal); R11.10 Vomiting, unspecified; T50.B95A Adverse effect of other viral vaccines, initial encounter; Y92.9 Unspecified place or not applicable; J44.9 Chronic obstructive pulmonary disease, unspecified; F12.90 Cannabis use, unspecified, uncomplicated; Z87.891 Personal history of nicotine dependence; Z79.01 Long term (current) use of anticoagulants; Z79.899 Other long term (current) drug therapy
CPT/HCPCS: 36415; 80053; 85025; 85610; 96374; 99284; J2405

== ENCOUNTER 2023-06-25 22:27 | Inpatient (IN) | payer OTHER, MEDICARE, SELFPAY ==
--- NOTE | ~2023-06-25 | XR_ITS ---
EXAMINATION: XR CHEST CLINICAL INFORMATION: Shortness of breath. COMPARISON: 07/06/2022. TECHNIQUE: Frontal view of the chest was obtained. FINDINGS: The cardiomediastinal silhouette is stable. There is apparent emphysematous change with bilateral mild diffuse increased markings most pronounced in the lower lung coles. There is no focal lung consolidation or pleural effusion. The bony structures and soft tissues are unremarkable. XR/XR chest 1V IMPRESSION: Emphysematous change with bilateral mild diffuse increased markings, similar to the previous study. No acute cardiopulmonary process.
--- NOTE | ~2023-06-25 | CT_ITS ---
EXAMINATION: CT ANGIOGRAM OF THE CHEST WITH AND WITHOUT CONTRAST (CT PULMONARY ANGIOGRAM FOR PE) CLINICAL INFORMATION: Reason for Exam hypoxia COMPARISON: None available. TECHNIQUE: Prior to contrast administration, noncontrast localization images were obtained. Subsequently, multidetector volumetric imaging was performed from the thoracic inlet to below the diaphragms following the administration of 65 mL Omnipaque 350 intravenous contrast. No contrast reaction reported Sagittal, coronal, and MIP oblique sagittal reformatted images were obtained on the CT workstation, uploaded to PACS, and reviewed. This CT examination was performed using dose optimization techniques as appropriate, variously including the following: *Automated exposure control *Adjustment of mA and/or kV according to patient size (this includes techniques or standardized protocols for targeted exams where dose is matched to indication/reason for exam; i.e. extremities or head) *Use of iterative reconstruction technique Total exam dose-length product 243 mGy-cm FINDINGS: QUALITY OF STUDY/CONTRAST BOLUS: Suboptimal but good. PULMONARY ARTERIES: No pulmonary emboli. THORACIC AORTA: No aneurysm. LUNG: There is diffuse emphysematous change. There are two stable 6 to 7 mm nodule at the right lung base. There is a stable right middle lobe nodule. Stable left lower lung field pleural nodularity. PLEURA: No pleural effusion or pneumothorax. MEDIASTINUM: Normal heart size. No pericardial effusion. No hilar or mediastinal lymphadenopathy. No evidence of septal bowing or right heart strain. CORONARY ARTERY CALCIFICATION: None visualized on this study. CHEST WALL/AXILLA: No axillary or internal mammary lymphadenopathy. OSSEOUS STRUCTURES: No acute or suspicious osseous abnormality. UPPER ABDOMEN: Unremarkable. No reflux of contrast into the hepatic veins to suggest elevated right heart pressures. CT/CT angio chest PE protocol IMPRESSION: 1. Suboptimal opacification of the pulmonary arteries. No evidence of pulmonary embolism. 2. Emphysematous change of lungs. 3. Stable lung nodules. VTE: negative.
--- NOTE | 2023-06-25 22:39 | ECG_ITS ---
Test Reason : SOB Blood Pressure : / mmHG Vent. Rate : 083 BPM Atrial Rate : 083 BPM P-R Int : 150 ms QRS Dur : 066 ms QT Int : 374 ms P-R-T Axes : 088 056 086 degrees QTc Int : 439 ms Normal sinus rhythm Nonspecific T wave abnormality Abnormal ECG When compared with ECG of 06-JUL-2022 14:42, No significant changes seen Referred By: Generic ED Physician Electronically Signed By:FROILAN PIERSON
[2023-06-25 22:40] VITALS: BP 151/87; PULSE 82; RESP 19; TEMP 36.5; O2SAT 93; BMI 30.9
[2023-06-25 22:46] VITALS: BP 151/87; PULSE 81; RESP 19; TEMP 36.5; O2SAT 92
[2023-06-25 23:05] LABS: MANUAL DIFF FLAG NO
[2023-06-25 23:06] LABS: Basophils Absolute Auto 0.1 X10*3/uL (0.0-0.2); Basophils Percent Auto 0.7 % (0-2); Eosinophils Absolute Auto 0.6 X10*3/uL (0.0-0.4); Eosinophils Percent Auto 4.9 % (0-4); Hematocrit 42.1 % (37.0-47.0); Hemoglobin 14.3 g/dl (12.0-16.0); Imm Gran Abs Auto 0.03 X10*3/uL (0.00-0.03); Imm Gran Pct Auto 0.3 % (0.0-0.4); Lymphocytes Absolute Auto 4.3 X10*3/uL (1.2-4.9); Lymphocytes Percent Auto 36.5 % (20-40); Mean Corpuscular Hemoglobin 31.6 pg (27.0-33.0); Mean Corpuscular Volume 93.1 fL (80.0-98.0); Mean Platelet Volume 8.8 fL (9.4-12.3); Monocytes Absolute Auto 1.1 X10*3/uL (0.1-1.2); Monocytes Percent Auto 9.5 % (2-11); Neutrophils Absolute Auto 5.6 x10*3/uL (2.0-8.3); Neutrophils Percent Auto 48.1 % (45-73); Platelet Count 320 X10*3/uL (160-400); Red Blood Count 4.52 X10*6/uL (4.20-5.50); Red Cell Distribution Width 13.1 % (11.0-16.0); White Blood Count 11.7 X10*3/uL (4.8-10.8)
--- NOTE | 2023-06-25 23:10 | MHC.EDTECH ---
Late entry,patient arrived by ambulance @ 2241,changed into hospital attire, vitals taken,call billy in reach
[2023-06-25 23:23] LABS: Alanine Aminotransferase 18 U/L (0-31); Albumin Level 4.2 g/dL (3.5-5.0); Alkaline Phosphatase 90 U/L (39-117); Anion Gap 16 (12-20); Aspartate Amino Transferase 21 U/L (5-31); Bilirubin Total 0.2 mg/dL (0.0-1.0); Blood Urea Nitrogen 23 mg/dL (9-16); Calcium 9.1 mg/dL (8.4-10.2); Carbon Dioxide 20 mmol/L (22-29); Chloride 109 mmol/L (96-108); Estimated Glomerular Filt Rate > 60; Glucose Random 143 mg/dL (60-115); Potassium 3.7 mmol/L (3.3-5.1); Sodium 141 mmol/L (135-145); Total Protein 7.5 g/dL (6.5-8.0)
--- NOTE | 2023-06-25 23:27 | PC.NURSE ---
assumed care of pt
[2023-06-25 23:31] LABS: Troponin-I High Sensitivity 3.3 ng/L (<3.5-17.0)
[2023-06-25 23:48] VITALS: BP 138/81; PULSE 72; RESP 20; TEMP 36.5; O2SAT 88
[2023-06-25 23:50] VITALS: O2SAT 91
--- NOTE | 2023-06-25 23:50 | MHC.EDTECH ---
Hourly rounds and vitals completed, patient's O2 sats are 88% on room air, RN and PA are at bedside. Patient placed on 2L VIA NC per providers request.family at bedside and call billy in reach
--- NOTE | 2023-06-25 23:58 | MHC.EDTECH ---
Sars swab obtained and sent to lab,belonging list completed and copy placed in chart.
[2023-06-26] VITALS (11 sets, daily range): BP systolic 116–165; BP diastolic 51–94; PULSE 61–89; RESP 16–20; TEMP 36.1–37; O2SAT 93–97
[2023-06-26 00:27] LABS: Influenza A PCR NEGATIVE (Negative); Influenza B PCR NEGATIVE (Negative); Resp Syncy Virus RNA Qual PCR NEGATIVE (Negative); SARS COV2 PCR INHOUSE NEGATIVE (Negative)
[2023-06-26] MEDS: Albuterol Sulfate 5 MG, Albuterol Sulfate (0.083%) 2.5 MG 7.5 MG INHALE (00:54)
--- NOTE | 2023-06-26 01:32 | ED.GENADULT ---
HPI - General Adult General Chief complaint: Dyspnea Stated complaint: Difficulty breathing Time Seen by Provider: 06/25/23 23:26 Source: patient, RN notes reviewed and old records reviewed Mode of arrival: EMS Limitations: no limitations History of Present Illness HPI narrative: 63-year-old female with past medical history significant for COPD, hyperlipidemia, atrial fibrillation on Coumadin presents for evaluation shortness of breath Patient reports worsening shortness of breath over the last few days. She and her both report having a ?cold. ? Patient reports she has been using her nebulizer and albuterol inhaler without any improvement prompting her to call the ambulance She received Solu-Medrol 125 mg IV as well as albuterol 5 mg updraft by EMS She denies any chest pain but endorses frequent coughing No other complaints or concerns at this time Related Data Home Medications Medication Instructions Recorded Confirmed amlodipine 10 mg tablet 10 mg PO DAILY 05/11/22 07/07/22 carbamazepine 200 mg tablet 200 mg PO TID 05/11/22 07/07/22 fluoxetine 20 mg capsule 40 mg PO DAILY 05/11/22 07/07/22 gabapentin 100 mg capsule 300 mg PO BID 05/11/22 07/07/22 latanoprost 0.005 % eye drops 1 drp ophthalmic (eye) DAILY 05/11/22 07/07/22 rosuvastatin 5 mg tablet 5 mg PO DAILY 05/11/22 07/07/22 umeclidinium 62.5 mcg-vilanterol 1 ea inhalation DAILY 05/11/22 07/07/22 25 mcg/actuation powdr for inhalation (Anoro Ellipta) warfarin 4 mg tablet 4 mg PO SUMOWETHFR 05/11/22 07/07/22 warfarin 4 mg tablet 6 mg PO TUSA 07/07/22 07/07/22 Previous Rx's Medication Instructions Recorded albuterol sulfate 90 mcg/actuation 2 puff inhalation Q6H PRN 07/07/22 aerosol inhaler shortness of breath or wheezing #6.7 grams prednisone 20 mg tablet 40 mg (2 x 20 mg) PO DAILY 4 days 07/07/22 #8 tabs Allergies Allergy/AdvReac Type Severity Reaction Status Date / Time codeine [CODEINE] Allergy Unknown SWELLING Verified 04/14/23 03:42 phenytoin [Dilantin] Allergy Unknown Rash Verified 04/14/23 03:42 Codeine Phosphate Allergy Unknown Swelling Uncoded 04/14/23 03:42 From DILANTIN Allergy Unknown ITCHY Uncoded 04/14/23 03:42 Review of Systems Constitutional: Constitutional: Denies body ache(s), Denies chills and Denies fever(s) ENT: Denies sore throat Cardiovascular: Cardiovascular: Denies chest pain and Reports dyspnea Respiratory: Respiratory: Reports cough, Reports dyspnea and Reports wheezing Gastrointestinal: Gastrointestinal: Denies abdominal pain Musculoskeletal: Musculoskeletal: Denies back pain Allergic/Immunologic: Allergic/Immunologic: Reports wheezing PMFSH Past Medical History Medical History Pulmonary nodules Seizures Cerebral aneurysm COPD exacerbation Social History Social History Alcohol intake: never Patient Tobacco Use Status: Former Tobacco user Smoked in Last 30 Days: No Use of substances other than those prescribed or required for medical reasons: Yes Substance Use Type: Marijuana Substance Use Frequency: Daily Advance Directives: No Advance Directives Information Provided: No Physical Exam ED Vital Signs: Vital Signs - 24 hr 06/25/23 22:40 06/25/23 22:46 06/25/23 22:46 Temperature 97.7 F 97.7 F Pulse Rate 82 81 Respiratory Rate 19 19 19 Blood Pressure 151/87 H 151/87 H Pulse Oximetry 93 92 Oxygen Delivery Method Room Air Room Air Oxygen Flow Rate 06/25/23 23:48 06/25/23 23:50 06/26/23 00:56 Temperature 97.7 F Pulse Rate 72 73 Respiratory Rate 20 20 Blood Pressure 138/81 Pulse Oximetry 88 L 91 L Oxygen Delivery Method Room Air Oxygen Flow Rate 2 06/26/23 01:51 Temperature 97.8 F Pulse Rate 85 Respiratory Rate 20 Blood Pressure 142/94 H Pulse Oximetry 93 Oxygen Delivery Method Nasal Cannula Oxygen Flow Rate 3 BMI result Body Mass Index 30.9 Const General: healthy appearing, comfortable, no acute distress, alert and awake Nutritional Appearance: well nourished Orientation/consciousness: patient oriented x3 HENMT Head: Yes normocephalic and Yes atraumatic Eyes Eyelids: Yes eyelids normal Conjunctivae: conjunctivae normal Sclerae: sclerae normal Corneas: corneas normal Pupils: Equal, round and reactive pupils present EOM: EOMs intact bilaterally Neck Neck: Yes full ROM Resp Other: Diminished breath sounds throughout with faint expiratory wheeze Effort & Inspection: labored Auscultation: not clear to auscultation bilaterally Cardio Other: No lower extremity edema Rhythm: abnormal rhythm irregularly irregular Skin General skin exam: elasticity normal Neuro General: patient oriented x3 Cranial nerves: Yes Equal, round and reactive pupils present and Yes Bilaterally intact EOM present Cognition (Neuro): normal cognition Extrem Other: Moving all extremities well without any obvious deformities Course Reevaluation(s) Reevaluation #1: Patient's workup is thus far unremarkable, chest x-ray is clear viral swab is negative. On auscultation her lungs are mostly diminished with only a faint wheeze. Will get a CTA to rule out PE, however a COPD exacerbation could explain the patient's symptoms. PEs there to be less likely as the patient is on Coumadin Time: 01:41 Reevaluation #2: Patient was signed out to me by the physician medical clerical assistant. The CT pulmonary angiogram is negative for pulmonary emboli. Also there is no description of any infiltrate or pneumonia. Clinically the patient seems to have a COPD exacerbation. I took her off oxygen and her oxygen saturations fell to about 87 or 88%, additionally she became more tachypneic and showed increased work of breathing. She was put back on oxygen and I contacted the hospitalist and requested that the patient be hospitalized for ongoing care. Time: 04:05 Medications Administered Discontinued Medications Generic Name Dose Route Start Last Admin Trade Name Freq PRN Reason Stop Dose Admin Albuterol Sulfate 5 mg/ 7.5 mg 06/26/23 00:47 06/26/23 00:54 Albuterol Sulfate 2.5 mg INHALE 06/26/23 00:48 7.5 mg ONCE ONE Administration Azithromycin 500 mg/ Sodium 250 mls @ 125 mls/hr 06/26/23 01:44 06/26/23 02:17 Chloride IV 06/26/23 03:43 125 mls/hr ONCE ONE Administration Iohexol 65 ml 06/26/23 01:50 06/26/23 01:51 Iohexol 350 Mg/Ml 100 Ml Infus..Btl IV 06/26/23 01:51 65 ml ONCE ONE Administration Medical Decision Making Medical Decision Making MDM Narrative: 63-year-old female with past medical history significant for COPD not on chronic O2 presents for evaluation of shortness of breath. She is hypoxic to 86% on room air on arrival. She already received Solu-Medrol and albuterol. Plan for viral swabs, chest x-ray, labs including a BNP. The patient will likely require admission due to hypoxia Differential Diagnosis Differential Diagnoses: The differential diagnosis associated with the presentation includes COVID-19 CHF COPD exacerbation Pneumonia PE Admission/Observation Consideration of admission/observation: Escalation of care including admission/observation considered Lab Data MDM Lab Attestation statement: I reviewed the patient's lab results. Mild leukocytosis to 11.7 with no significant anemia. Patient's chemistries were significant for a chloride of 109, CO2 that is low at 20 which is likely related to her tachypnea. BUN is slightly elevated to 23 with a normal creatinine of 0.82. 06/25/23 22:59 06/25/23 22:59 Labs: Lab Results 06/25/23 06/25/23 06/26/23 Range/Units 22:59 23:48 01:51 WBC 11.7 H (4.8-10.8) X10*3/uL RBC 4.52 (4.20-5.50) X10*6/uL Hgb 14.3 (12.0-16.0) g/dl Hct 42.1 (37.0-47.0) % MCV 93.1 (80.0-98.0) fL MCH 31.6 (27.0-33.0) pg MCHC 34.0 (31.0-35.0) g/dl RDW 13.1 (11.0-16.0) % Plt Count 320 D (160-400) X10*3/uL MPV 8.8 L (9.4-12.3) fL Immature Gran % (Auto) 0.3 (0.0-0.4) % Neut % (Auto) 48.1 (45-73) % Lymph % (Auto) 36.5 (20-40) % [place] % (Auto) 9.5 (2-11) % Eos % (Auto) 4.9 H (0-4) % Baso % (Auto) 0.7 (0-2) % Lymph # (Auto) 4.3 (1.2-4.9) X10*3/uL [place] # (Auto) 1.1 (0.1-1.2) X10*3/uL Eos # (Auto) 0.6 H (0.0-0.4) X10*3/uL Baso # (Auto) 0.1 (0.0-0.2) X10*3/uL Abs Immat Gran (auto) 0.03 (0.00-0.03) X10*3/uL Absolute Neuts (auto) 5.6 (2.0-8.3) x10*3/uL Absolute Nucleated RBC 0.000 (0.0-0.012) X10*3/uL Nucleated RBC % (auto) 0.0 (0.0-0.2) /100WBC PT 35.9 H D (11.1-13.3) SEC INR 2.9 H (0.9-1.1) Sodium 141 (135-145) mmol/L Potassium 3.7 (3.3-5.1) mmol/L Chloride 109 H (96-108) mmol/L Carbon Dioxide 20 L (22-29) mmol/L Anion Gap 16 (12-20) BUN 23 H (9-16) mg/dL Creatinine 0.82 (0.5-1.4) mg/dL Estim Creat Clear Calc 63.0 Estimated GFR > 60 Random Glucose 143 H (60-115) mg/dL Calcium 9.1 (8.4-10.2) mg/dL Total Bilirubin 0.2 (0.0-1.0) mg/dL AST 21 (5-31) U/L ALT 18 (0-31) U/L Alkaline Phosphatase 90 (39-117) U/L Troponin I High Sens 3.3 (<3.5-17.0) ng/L Total Protein 7.5 (6.5-8.0) g/dL Albumin 4.2 (3.5-5.0) g/dL Influenza Type A (PCR) NEGATIVE (Negative) Influenza Type B (PCR) NEGATIVE (Negative) RSV RNA Qual (PCR) NEGATIVE (Negative) SARS-CoV-2 RNA (RT-PCR) NEGATIVE (Negative) Independent Interpretation I performed an independent interpretation of an: EKG (Sinus rhythm with a rate of 83 beats per minute.) and Plain X-Ray (No focal infiltrates) Radiology Impression Discussion of test interpretation with radiology: I have reviewed the radiologist's reading. (Emphysematous changes with bilateral mild diffuse increased markings similar to previous study. No acute cardiopulmonary process) Discharge Plan Discharge Clinical Impression: COPD exacerbation, Hypoxia Patient Disposition: Admitted As Inpatient
[2023-06-26] MEDS: iohexoL 350 MG/ML 100 ML INFUS..BTL 65 ML IV (01:51)
--- NOTE | 2023-06-26 01:51 | MHC.EDTECH ---
Hourly rounds and vitals completed,patient was giving a cup of ice water and is resting comfortably, at bedside and call billy in reach
[2023-06-26 02:00] LABS: INTERNATIONAL NORM RATIO 2.9 (0.9-1.1); Prothrombin Time 35.9 SEC (11.1-13.3)
[2023-06-26] MEDS: Azithromycin 500 MG in 0.9 % Sodium Chloride 250 ML 125 MG IV (02:17)
--- NOTE | 2023-06-26 04:14 | MHC.EDTECH ---
Hourly rounds and vitals completed,patient is resting comfortably at this time,call billy in reach
--- NOTE | 2023-06-26 04:41 | MHC.EDTECH ---
Patient got up to commode with minimal assist,urinated a large amount, Patient was giving a tea per request.
--- NOTE | 2023-06-26 05:41 | P.HPHOSP_ITS ---
History of Present Illness Date of Service: 06/26/23 Attending physician on admission: Alesia Alexis Chief Complaint: Shortness of breaths Mayte Hernandez is a very pleasant 63 years old woman with past medical history significant for COPD -not home oxygen, right upper extremity DVT on warfarin, seizures and essential hypertension presents to the emergency department complaining of 2 days history of worsening shortness of breath associated with wheezing, productive cough and nasal congestion. She denied fever or chills. She denies chest pain, palpitations or dizziness. She denied any acute gastrointestinal or genitourinary symptoms. She denied edema to the lower extremities. She is a former tobacco smoker, quit in 2010. However, she admits that she recently smoke marijuana. She denies alcohol abuse. She did try nebulizers at home without significant improvement symptoms. In the ED, she was found to have an oxygen saturation 88% on room air and currently requiring 2 liters/minute supplemental oxygen via nasal cannula. Blood workup is remarkable for mild leukocytosis. INRn is 2.9. BNP and troponin are normal. LFTs and creatinine are normal. Viral testing for influenza and COVID-19 is negative. Pulmonary CTA showed no pulmonary embolism, stable lung nodules and emphysematous changes of the lungs. ED tx: Albuterol neb, azithromycin 500 mg IV Review of Systems 2 Review of Systems: All 12 systems were reviewed and normal except as noted in HPI. [facility] Medical History (Updated 06/26/23 @ 06:18 by Alesia Alexis MD) Essential hypertension Pulmonary nodules Seizures Cerebral aneurysm COPD exacerbation Social History Alcohol intake: never Patient Tobacco Use Status: Former Tobacco user Smoked in Last 30 Days: No Use of substances other than those prescribed or required for medical reasons: Yes Substance Use Type: Marijuana Substance Use Frequency: Daily Advance Directives: No Advance Directives Information Provided: No Meds Allergies Allergy/AdvReac Type Severity Reaction Status Date / Time codeine [CODEINE] Allergy Unknown SWELLING Verified 04/14/23 03:42 phenytoin [Dilantin] Allergy Unknown Rash Verified 04/14/23 03:42 Codeine Phosphate Allergy Unknown Swelling Uncoded 04/14/23 03:42 From DILANTIN Allergy Unknown ITCHY Uncoded 04/14/23 03:42 Active Medications: Current Medications Acetaminophen (Acetaminophen 325 Mg Tablet) 975 mg PO Q6H PRN PRN Reason: Pain, Mild (Pain Scale 1-3) Albuterol/Ipratropium (Albuterol/Iprat 2.5/0.5mg 3 Ml Ampul.Neb) 3 ml INHALE Q4H PRN PRN Reason: Shortness of Breath/Wheezing Methylprednisolone Sodium Succinate (Methylprednisolone Sod Succ 40 Mg/Ml Vial) 40 mg IVPUSH ONCE ARPAN Sodium Chloride (0.9 % Sodium Chloride Flush 3 Ml Syringe) 3 ml IVFLUSH QSHIFT ARPAN Home Medications Medication Instructions Recorded Confirmed Last Taken Type amlodipine 10 mg tablet 10 mg PO DAILY 05/11/22 06/26/23 Unknown History carbamazepine 200 mg tablet 200 mg PO TID 05/11/22 06/26/23 Unknown History fluoxetine 20 mg capsule 40 mg PO DAILY 05/11/22 06/26/23 Unknown History gabapentin 100 mg capsule 300 mg PO BID 05/11/22 07/07/22 Unknown History latanoprost 0.005 % eye drops 1 drp ophthalmic (eye) DAILY 05/11/22 06/26/23 Unknown History rosuvastatin 5 mg tablet 5 mg PO DAILY 05/11/22 06/26/23 Unknown History umeclidinium 62.5 mcg-vilanterol 1 ea inhalation DAILY 05/11/22 07/07/22 Unknown History 25 mcg/actuation powdr for inhalation (Anoro Ellipta) warfarin 4 mg tablet 4 mg PO SUMOWETH05/11/22 07/07/22 Unknown History warfarin 4 mg tablet 6 mg PO TUSA 07/07/22 07/07/22 Unknown History gabapentin 300 mg capsule 300 mg PO BID 06/26/23 06/26/23 Unknown History umeclidinium 62.5 mcg-vilanterol 1 ea inhalation DAILY 06/26/23 06/26/23 Unknown History 25 mcg/actuation powdr for inhalation (Anoro Ellipta) warfarin 4 mg tablet 4 - 12 mg PO DAILY 06/26/23 06/26/23 Unknown History Physical Exam 2 Vital Signs and Narrative: Vital Signs: Last Vital Signs Temp 98.0 F 06/26/23 04:13 Pulse 79 06/26/23 04:13 Resp 20 06/26/23 04:13 BP 146/65 H 02/06/24 04:13 Pulse Ox 94 06/26/23 04:13 O2 Del Method Nasal Cannula 06/26/23 04:13 O2 Flow Rate 2 06/26/23 04:13 BMI result Body Mass Index 30.9 Constitutional - Awake and Alert, No apparent distress. Nasal cannula in place. HEENT - Atraumatic head, normocephalic. Pupils equally round. No scleral icterus. Heart - S1S2, RRR. Lungs - Normal lung expansion, Normal respiratory effort, No respiratory distress, tachypnea. Minimal end expiratory wheezes. No crackles. Gastrointestinal - NT / ND; +BS; No rebound or guarding Extremities - no calf tenderness bilaterally, no swelling Musculoskeletal - Normal inspection, normal ROM Skin - Warm/Dry Neurological - Alert & oriented x3. Normal speech. No gross focal weakness. Psychological - Appropriate affect Results Labs 06/25/23 22:59 06/25/23 22:59 Labs: Laboratory Results - last 24 hr 06/25/23 06/25/23 06/26/23 22:59 23:48 01:51 MCV 93.1 MCH 31.6 MCHC 34.0 RDW 13.1 Plt Count 320 D MPV 8.8 L Immature Gran % (Auto) 0.3 Neut % (Auto) 48.1 Lymph % (Auto) 36.5 [place] % (Auto) 9.5 Eos % (Auto) 4.9 H Baso % (Auto) 0.7 Lymph # (Auto) 4.3 [place] # (Auto) 1.1 Eos # (Auto) 0.6 H Baso # (Auto) 0.1 Abs Immat Gran (auto) 0.03 Absolute Neuts (auto) 5.6 Absolute Nucleated RBC 0.000 Nucleated RBC % (auto) 0.0 PT 35.9 H D INR 2.9 H Anion Gap 16 Estim Creat Clear Calc 63.0 Estimated GFR > 60 Random Glucose 143 H Calcium 9.1 Total Bilirubin 0.2 AST 21 ALT 18 Alkaline Phosphatase 90 Total Protein 7.5 Albumin 4.2 Influenza Type A (PCR) NEGATIVE Influenza Type B (PCR) NEGATIVE RSV RNA Qual (PCR) NEGATIVE SARS-CoV-2 RNA (RT-PCR) NEGATIVE Imaging Radiologist's Impressions: Impressions Chest X-Ray 06/25/23 23:28 IMPRESSION: Emphysematous change with bilateral mild diffuse increased markings, similar to the previous study. No acute cardiopulmonary process. Chest CTA 06/26/23 02:11 IMPRESSION: 1. Suboptimal opacification of the pulmonary arteries. No evidence of pulmonary embolism. 2. Emphysematous change of lungs. 3. Stable lung nodules. VTE: negative. Assessment and Plan (1) Acute hypoxic respiratory failure: Status: Acute (2) COPD exacerbation: Status: Acute (3) Pulmonary nodules: Status: Acute (4) Essential hypertension: Status: Acute Plan Mayte Heranndez is a 63 years old woman admitted with: * Acute hypoxic respiratory failure secondary to acute exacerbation of chronic obstructive pulmonary disease. Admit to hospitalist service. Telemetry. Pulse oximetry. Continue supplemental oxygen to keep oxygen saturation above 90%. Continue bronchodilator therapy w/ Duoneb and IV steroids. Continue Anoro. * Essential hypertension. Continue amlodipine. * Seizure disorder. Continue carbamazepine. * Hyperlipidemia. Continue statin. * History of right upper extremity DVT. Continue warfarin. INR is currently therapeutic. * Glaucoma. Continue latanoprost. * Arthritis/neuropathy. Continue gabapentin. * Stable pulmonary nodule. Continue follow-up as an outpatient. DVT prophylaxis: On warfarin Code status: Full Patient will need hospitalization for at least 2 midnights for acute hypoxic respiratory failure treatment with supplemental oxygen, bronchodilator therapy and IV steroids. Quality Stroke Does the patient have a stroke diagnosis?: No VTE Prior VTE?: No VTE Risk Level:: Medical - moderate - high VTE Device Contraindication: Treatment Not Indicated VTE Drug Contraindication: N/A - Med Ordered
--- NOTE | 2023-06-26 06:27 | PC.NURSE ---
spoke to pharmacy about the 545 carbamazepine ordered and they said it will be ordered at a later time. Not given , please see MAR. Dose will be given at 0900
--- NOTE | 2023-06-26 08:43 | PHA.MEDREC ---
Addendum entered by Geraldine Hernandez [facility] 06/26/23 08:47: Pt also states she takes centrum with no vitamin K to avoid warfarin interactions. Original Note: Pharmacy Consult ? Medication Reconciliation Pharmacy has completed the medication reconciliation with patient and at bedside. Pt's took pictures of her medications, pt was also able to verbally confirm most medications and doses. Pt states she gets INR readings at home and takes doses based on INR readings and takes between 4 and 6 mgs.
[2023-06-26] MEDS: FLUoxetine HCl 20 MG CAPSULE 40 MG PO (09:46)
[2023-06-26] MEDS: Gabapentin 300 MG CAPSULE PO ×2 (09:46→21:11)
[2023-06-26] MEDS: 0.9 % Sodium Chloride Flush 3 ML SYRINGE IVFLUSH ×2 (09:46→16:14)
[2023-06-26] MEDS: carBAMazepine 200 MG TABLET PO ×2 (09:46→21:11)
[2023-06-26] MEDS: amLODIPine Besylate 10 MG TABLET PO (09:46)
--- NOTE | 2023-06-26 09:49 | PC.NURSE ---
patient a&ox3, teletypesetter monitor intact-nsr, vss, lungs clear at this time 2L O2 nc- pt not home O2 dependent but desats and feels sob without, pt oob to commode, pt medicated per orde3r, denies pain/discomfort, call billy within reach, will continue to monitor
--- NOTE | 2023-06-26 09:52 | PC.NURSE ---
calling pharmacy for missing meds
[2023-06-26] MEDS: Latanoprost 0.005 % Ophth Sol 2.5 ML DROPS 1 DROP EYE-BOTH (11:16)
--- NOTE | 2023-06-26 11:34 | PM.EVENT ---
Event Note Date of Service: 06/26/23 Event Note: 63-year-old woman admitted with acute hypoxic respiratory failure secondary to COPD exacerbation Acute hypoxic respiratory failure secondary to COPD exacerbation Azithromycin Continue IV Solu-Medrol Scheduled DuoNebs Supplemental oxygen as needed Hypertension Stable blood pressure Continue amlodipine History of seizure disorder. Seizure precautions Continue carbamazepine Hyperlipidemia Continue statin History of right upper extremity DVT Continue warfarin Follow INR daily Glaucoma Continue latanoprost History of neuropathy. Unspecified Continue gabapentin DVT prophylaxis with warfarin Attending Dr. Frye Full code Time Spent With Patient Time: Total time managing care of this patient today ____ minutes.
[2023-06-26] MEDS: Albuterol Sulfate (0.083%) 2.5 MG/3 ML VIAL.NEB INHALE ×3 (11:55→20:15)
[2023-06-26] MEDS: methylPREDNISolone Sod Succ 40 MG/ML VIAL IVPUSH ×2 (12:56→19:42)
--- NOTE | 2023-06-26 13:00 | PC.NURSE ---
pt medicated per order
--- NOTE | 2023-06-26 13:41 | MHC.CM.PN ---
Pt. lives alone and does not have home health services. She has medical equipment of: shower chair, railing, step to get into bed, which she is not using, she has a nebulizer that she does use. Her daughter Christiana is her HCP, copy requested. She has transportation home upon DC. CM to follow and assist with DC plan.
[2023-06-26] MEDS: Warfarin Sodium 4 MG TABLET PO (18:41)
--- NOTE | 2023-06-26 18:42 | PC.NURSE ---
pt medicated per order
--- NOTE | 2023-06-26 19:42 | PC.NURSE ---
Assumed care of the pt at 1900. Pt is resting comfortably in bed at this time. States her only pain is her granddaughter making her laugh too hard. Pt was medicated per JUL. Med initially scanned under a scheduled 0900 order. Scan was undone and manually documented medication under proper order. Correct med and dose administered.
[2023-06-26] MEDS: Atorvastatin Calcium 20 MG TABLET PO (21:12)
[2023-06-27] VITALS (10 sets, daily range): BP systolic 122–149; BP diastolic 58–86; PULSE 64–74; RESP 16–22; TEMP 36.2–36.8; O2SAT 93–97
[2023-06-27] MEDS: 0.9 % Sodium Chloride Flush 3 ML SYRINGE IVFLUSH ×4 (00:29→20:54)
[2023-06-27] MEDS: methylPREDNISolone Sod Succ 40 MG/ML VIAL IVPUSH ×5 (04:07→20:56)
[2023-06-27] MEDS: Azithromycin 500 MG in 0.9 % Sodium Chloride 250 ML 125 MG IV (06:01)
[2023-06-27 07:48] LABS: INTERNATIONAL NORM RATIO 3.9 (0.9-1.1); Prothrombin Time 47.5 SEC (11.1-13.3)
[2023-06-27] MEDS: Albuterol Sulfate (0.083%) 2.5 MG/3 ML VIAL.NEB INHALE ×4 (08:18→19:52)
[2023-06-27] MEDS: carBAMazepine 200 MG TABLET PO ×3 (08:38→20:53)
[2023-06-27] MEDS: FLUoxetine HCl 20 MG CAPSULE 40 MG PO (08:38)
[2023-06-27] MEDS: Latanoprost 0.005 % Ophth Sol 2.5 ML DROPS 1 DROP EYE-BOTH (08:39)
[2023-06-27] MEDS: amLODIPine Besylate 10 MG TABLET PO (08:39)
[2023-06-27] MEDS: Gabapentin 300 MG CAPSULE PO ×2 (08:39→20:53)
[2023-06-27] MEDS: Famotidine 20 MG TABLET PO ×2 (11:01→20:53)
--- NOTE | 2023-06-27 14:46 | MHC.CM.PN ---
Addendum entered by Malina Mcdermott 06/27/23 14:47: This CM called [facility] for copy of HCP, now on file. Original Note: EMR reviewed and per MD rounds, pt is not medically cleared for D/C due to needing management of COPD exacerbation. CM will continue to follow.
--- NOTE | 2023-06-27 15:58 | HO.PM.IMPN ---
Subjective Subjective Date of Service: 06/27/23 Interval History: States markedly improved since admission. No O2 requirement Review of Systems Denies chest pain Denies shortness of breath Denies nausea vomiting diarrhea Denies fever chills Physical Exam Vital Signs: Vital Signs: Last Vital Signs Temp 97.1 F 06/27/23 15:30 Pulse 70 06/27/23 15:30 Resp 20 06/27/23 15:30 BP 137/71 06/27/23 15:30 Pulse Ox 96 06/27/23 15:30 O2 Del Method Room Air 06/27/23 15:30 O2 Flow Rate 2 06/27/23 07:04 BMI result Body Mass Index 30.9 Const: Other: Awake alert no acute distress Resp: Other: Clear to auscultation bilaterally rales rhonchi or wheezes; diminished at bases Cardio: Other: No S4; positive S1-S2; no S3 murmurs rubs or gallops GI: Other: Soft nontender nondistended normoactive bowel sounds Extrem: Other: No edema bilaterally Objective Data Active Medications Acetaminophen (Acetaminophen 325 Mg Tablet) 975 mg PO Q6H PRN PRN Reason: Pain, Mild (Pain Scale 1-3) Albuterol Sulfate (Albuterol Sulfate (0.083%) 2.5 Mg/3 Ml Vial.Neb) 2.5 mg INHALE RQ4H WHILE AWAKE [facility] Last Admin: 06/27/23 12:01 Dose: 2.5 mg Documented By: WONG Albuterol/Ipratropium (Albuterol/Iprat 2.5/0.5mg 3 Ml Ampul.Neb) 3 ml INHALE Q4H PRN PRN Reason: Shortness of Breath/Wheezing Amlodipine Besylate (Amlodipine Besylate 10 Mg Tablet) 10 mg PO DAILY [facility]; Protocol Last Admin: 06/27/23 08:39 Dose: 10 mg Documented By: OLIVIER Atorvastatin Calcium (Atorvastatin Calcium 20 Mg Tablet) 20 mg PO BEDTIME [facility] Last Admin: 06/26/23 21:12 Dose: 20 mg Documented By: DEAN Carbamazepine (Carbamazepine 200 Mg Tablet) 200 mg PO TID [facility] Last Admin: 06/27/23 15:28 Dose: 200 mg Documented By: OLIVIER Famotidine (Famotidine 20 Mg Tablet) 20 mg PO BID [facility] Last Admin: 06/27/23 11:01 Dose: 20 mg Documented By: OLIVIER Fluoxetine HCl (Fluoxetine Hcl 20 Mg Capsule) 40 mg PO DAILY [facility] Last Admin: 06/27/23 08:38 Dose: 40 mg Documented By: OLIVIER Gabapentin (Gabapentin 300 Mg Capsule) 300 mg PO BID [facility] Last Admin: 06/27/23 08:39 Dose: 300 mg Documented By: OLIVIER Azithromycin 500 mg/ Sodium (Chloride) 250 mls @ 125 mls/hr IV Q24H [facility] Last Infusion: 06/27/23 08:16 Dose: Infused Documented By: OLIVIER Latanoprost (Latanoprost 0.005 % Ophth Justa 2.5 Ml Drops) 1 drop EYE-BOTH DAILY [facility] Last Admin: 06/27/23 08:39 Dose: 1 drop Documented By: OLIVIER Methylprednisolone Sodium Succinate (Methylprednisolone Sod Succ 40 Mg/Ml Vial) 40 mg IVPUSH ONCE [facility] Last Admin: 06/27/23 11:01 Dose: 40 mg Documented By: OLIVIER Methylprednisolone Sodium Succinate (Methylprednisolone Sod Succ 40 Mg/Ml Vial) 40 mg IVPUSH Q8H [facility] Last Admin: 06/27/23 11:05 Dose: 40 mg Documented By: OLIVIER Non-Formulary Medication (Umeclidinium-Vilanterol [Anoro Ellipta]) 1 each INHALE DAILY [facility] Sodium Chloride (0.9 % Sodium Chloride Flush 3 Ml Syringe) 3 ml IVFLUSH QSHIFT [facility] Last Admin: 06/27/23 15:28 Dose: 3 ml Documented By: OLIVIER Warfarin Sodium (Warfarin Sodium 4 Mg Tablet) 4 mg PO DAILY@1800 [facility] Last Admin: 06/26/23 18:41 Dose: 4 mg Documented By: THOMSOC Labs 06/25/23 22:59 06/25/23 22:59 Labs: Laboratory Results - last 24 hr 06/27/23 07:22 Hold Purple Top SEE NOTE PT 47.5 H D INR 3.9 H Assessment and Plan (1) Acute hypoxic respiratory failure: Status: Acute (2) COPD exacerbation: Status: Acute Plan Mayte Hernandez is a 63 years old woman admitted with shortness of breath related to COPD exacerbation 1. Acute hypoxic respiratory failure/COPD exacerbation -continue empiric antibiotic therapies with azithromycin (2) -no current O2 requirement -continue IV steroids; switch to oral upon discharge 2. Essential hypertension -acceptable control on current therapies -adjust as indicated 3. History of right upper extremity DVT -continue Coumadin as ordered -daily INR -adjust as indicated Warfarin Full Patient will require ongoing hospitalization for IV antibiotics/steroids to treat COPD exacerbation Quality Stroke Does the patient have a stroke diagnosis?: No VTE Prior VTE?: No VTE Risk Level:: Medical - moderate - high VTE Device Contraindication: Treatment Not Indicated VTE Drug Contraindication: N/A - Med Ordered
[2023-06-27] MEDS: Atorvastatin Calcium 20 MG TABLET PO (20:52)
[2023-06-28 03:45] VITALS: BP 156/79; PULSE 60; RESP 16; TEMP 36.6; O2SAT 96
[2023-06-28] MEDS: methylPREDNISolone Sod Succ 40 MG/ML VIAL IVPUSH ×3 (04:55→12:45)
[2023-06-28] MEDS: Azithromycin 500 MG in 0.9 % Sodium Chloride 250 ML 125 MG IV (04:55)
[2023-06-28 07:27] VITALS: BP 160/72; PULSE 61; RESP 20; TEMP 36.5; O2SAT 94
[2023-06-28] MEDS: Albuterol Sulfate (0.083%) 2.5 MG/3 ML VIAL.NEB INHALE ×2 (07:35→11:14)
[2023-06-28 07:37] VITALS: PULSE 61; RESP 18; O2SAT 96
[2023-06-28] MEDS: Latanoprost 0.005 % Ophth Sol 2.5 ML DROPS 1 DROP EYE-BOTH (07:41)
[2023-06-28] MEDS: carBAMazepine 200 MG TABLET PO (07:41)
[2023-06-28] MEDS: Gabapentin 300 MG CAPSULE PO (07:41)
[2023-06-28] MEDS: amLODIPine Besylate 10 MG TABLET PO (07:41)
[2023-06-28] MEDS: FLUoxetine HCl 20 MG CAPSULE 40 MG PO (07:41)
[2023-06-28] MEDS: Famotidine 20 MG TABLET PO (07:41)
[2023-06-28] MEDS: 0.9 % Sodium Chloride Flush 3 ML SYRINGE IVFLUSH (07:42)
[2023-06-28 09:13] LABS: INTERNATIONAL NORM RATIO 2.4 (0.9-1.1); Prothrombin Time 29.1 SEC (11.1-13.3)
[2023-06-28 11:15] VITALS: PULSE 74; RESP 18; O2SAT 97
--- NOTE | 2023-06-28 12:36 | PM.DS ---
DS: Providers Provider Date of Service: 06/28/23 Date of admission: 06/26/23 04:29 Date of discharge: 06/28/23 Primary care physician: Jose Kumar MD DS: Diagnosis Discharge Diagnosis (1) Acute hypoxic respiratory failure: Status: Acute (2) COPD exacerbation: Status: Acute DS: Summary Hospital Course Hospital Course: 63 years old woman with past medical history significant for COPD -not home oxygen, right upper extremity DVT on warfarin, seizures and essential hypertension presents to the emergency department complaining of 2 days history of worsening shortness of breath associated with wheezing, productive cough and nasal congestion. She denied fever or chills. She denies chest pain, palpitations or dizziness. She denied any acute gastrointestinal or genitourinary symptoms. She denied edema to the lower extremities. She is a former tobacco smoker, quit in 2010. However, she admits that she recently smoke marijuana. She denies alcohol abuse. She did try nebulizers at home without significant improvement symptoms. In the ED, she was found to have an oxygen saturation 88% on room air and currently requiring 2 liters/minute supplemental oxygen via nasal cannula. Blood workup is remarkable for mild leukocytosis. INRn is 2.9. BNP and troponin are normal. LFTs and creatinine are normal. Viral testing for influenza and COVID-19 is negative. Pulmonary CTA showed no pulmonary embolism, stable lung nodules and emphysematous changes of the lungs. Hospital course Admitted to general medical floor and maintained on azithromycin IV steroids and aggressive DuoNeb treatments. Over the course next 48 hours she has returned to what she states is baseline and has no O2 requirement. At this point in time she is medically acceptable discharged home to complete a 3 day course of azithromycin and a prednisone taper. She was given a script for DuoNebs and will follow up with PCP as scheduled Time Attestation Discharge coordination time: Greater than 30 minutes Quality: Safe Use of Opioids Does Pt have an Active Cancer Diagnosis on the Problem List?: No Quality: Stroke Does the patient have a stroke diagnosis?: No Physical Exam Vital Signs: Vital Signs: Last Vital Signs Temp 97.7 F 06/28/23 07:27 Pulse 74 06/28/23 11:15 Resp 18 06/28/23 11:15 BP 160/72 H 06/28/23 07:27 Pulse Ox 94 06/28/23 07:27 O2 Del Method Room Air 06/28/23 07:27 O2 Flow Rate 2 06/27/23 07:04 BMI result Body Mass Index 30.9 Const: Other: Awake alert no acute distress Resp: Other: Clear to auscultation bilaterally rales rhonchi or wheezes; diminished at bases Cardio: Other: No S4; positive S1-S2; no S3 murmurs rubs or gallops GI: Other: Soft nontender nondistended normoactive bowel sounds Extrem: Other: No edema bilaterally DS: Data Data Completed and Pending Labs on day of discharge: Laboratory Results - last 24 hr 06/28/23 08:47 PT 29.1 H D INR 2.4 H Discharge Plan Discharge Anticipated Discharge Date/Time: 06/28/23 12:29 Patient Disposition: Home, Self-Care Discharge Diagnosis: COPD exacerbation Referrals: Jose Kumar MD [Primary Care Provider] - 1 Week Discharge Medications: New ipratropium-albuterol 0.5 mg-3 mg(2.5 mg base)/3 mL Solution For Nebulization 3 ml inhalation Q4H PRN (Reason: Shortness Of Breath/Wheezing) Qty: 270 1RF azithromycin 500 mg tablet 500 mg PO DAILY 3 Days Qty: 3 0RF prednisone 10 mg tablet See Rx Instructions .Route .COMPLEX Qty: 45 0RF Rx Instructions: 10 mg orally; 5 tabs p.o. daily x3 days; 4 tabs p.o. daily x3 days; 3 tabs daily x3 days; 2 tabs daily x3 days; 1 tab daily x3 days Continued albuterol sulfate 90 mcg/actuation HFA aerosol inhaler 2 puff inhalation Q6H PRN (Reason: shortness of breath or wheezing) Qty: 6.7 1RF gabapentin 300 mg capsule 300 mg PO BID warfarin 4 mg tablet 4 - 6 mg PO DAILY Anoro Ellipta 62.5-25 mcg/actuation blister with device 1 ea INHALATION DAILY fluticasone propionate 50 mcg/actuation spray,suspension 2 spray intranasal DAILY PRN (Reason: allergies) ezetimibe 10 mg tablet 10 mg PO BEDTIME latanoprost 0.005 % drops 1 drp ophthalmic (eye) DAILY fluoxetine 20 mg capsule 40 mg PO DAILY amlodipine 10 mg tablet 10 mg PO DAILY rosuvastatin 5 mg tablet 5 mg PO BEDTIME carbamazepine 200 mg tablet 200 mg PO TID Discharge Orders: Discharge Order (Routine); Ordered 06/28/23 Ordered By: Simone Jaramillo Diet: Advance to usual diet Activity on Discharge: As tolerated Stand Alone Forms: Patient Portal Discharge page Care Plan Goals: Resume all pre-hospital medications Health Concerns: Complete 3 days of azithromycin; prednisone taper as ordered. 50 mg daily for 3, 40 mg daily for 3, 30 mg daily for 3, 20 mg daily for 3, 10 mg daily for 3 DuoNebs 3 times a day as needed Plan of Treatment: Follow-up with PCP as scheduled Assessment: See discharge summary
--- NOTE | 2023-06-28 13:47 | MHC.CM.PN ---
Pt is medically cleared for D/C home self-care, pt has arranged for her own transportation home.
== END 2023-06-28 13:19 | disposition home or self-care (01) | DRG 140 ==
LOC: HO.ED 06-26 01:56 → HO.EDOVER 06-26 04:34 → HO.IMC 06-26 19:44
PROVIDERS: Physician Assistant; Admitting Provider Internal Medicine; Emergency Provider Emergency Medicine; PCP Internal Medicine; Visit Provider Hospitalist
DX: J44.1 Chronic obstructive pulmonary disease with (acute) exacerbation (principal); J96.01 Acute respiratory failure with hypoxia; I10 Essential (primary) hypertension; R91.1 Solitary pulmonary nodule; G62.9 Polyneuropathy, unspecified; H40.9 Unspecified glaucoma; E78.5 Hyperlipidemia, unspecified; G40.909 Epilepsy, unspecified, not intractable, without status epilepticus; Z20.822 Contact with and (suspected) exposure to COVID-19; Z86.718 Personal history of other venous thrombosis and embolism; Z87.891 Personal history of nicotine dependence; Z79.01 Long term (current) use of anticoagulants; Z79.899 Other long term (current) drug therapy
CPT/HCPCS: 0241U; 36415; 71045; 71275; 80053; 84484; 85025; 85610; 93005; 94640; 99285; J0456; J2920; Q9967

== ENCOUNTER → 2023-06-25 22:39 | Outpatient (BNV) | payer OTHER, SELFPAY | PROVIDERS: Admitting Provider Internal Medicine; Emergency Provider Emergency Medicine; PCP Internal Medicine; Visit Provider Internal Medicine | DX: R06.02 Shortness of breath (principal) | CPT/HCPCS: 93010 ==

== ENCOUNTER → 2023-06-26 04:29 | Outpatient (BNV) | payer OTHER, SELFPAY | PROVIDERS: Admitting Provider Internal Medicine; Emergency Provider Emergency Medicine; PCP Internal Medicine; Visit Provider Internal Medicine | DX: J44.1 Chronic obstructive pulmonary disease with (acute) exacerbation (principal); J96.01 Acute respiratory failure with hypoxia; R91.8 Other nonspecific abnormal finding of lung field; I10 Essential (primary) hypertension | CPT/HCPCS: 99223; 99233; 99239; 99499 ==

== ENCOUNTER 2023-07-13 23:42 | Emergency (ER) | payer OTHER, MEDICARE, SELFPAY ==
--- NOTE | ~2023-07-13 | XR_ITS ---
EXAMINATION: XR CHEST CLINICAL INFORMATION: Cough. COMPARISON: 06/25/2023 TECHNIQUE: Frontal view of the chest was obtained. FINDINGS: The cardiomediastinal silhouette is within normal limits and stable. There is diffuse emphysematous change with mild lower lung field increased markings. There is no focal lung consolidation or pleural effusion. The bony structures and soft tissues are unremarkable. XR/XR chest 1V IMPRESSION: Emphysematous changes without superimposed focal lung consolidation or pleural effusion, similar to previous study.
[2023-07-14] VITALS (7 sets, daily range): BP systolic 121–151; BP diastolic 70–75; PULSE 58–91; RESP 16–20; TEMP 36.6–38; O2SAT 91–94; BMI 30.9
--- NOTE | 2023-07-14 01:22 | MHC.EDTECH ---
Patient brought into triage area,labs,covid,flu obtained and sent to lab.
[2023-07-14 01:28] LABS: Basophils Percent Auto 0.3 % (0-2); Eosinophils Absolute Auto 0.1 X10*3/uL (0.0-0.4); Hematocrit 39.9 % (37.0-47.0); Hemoglobin 13.8 g/dl (12.0-16.0); Imm Gran Abs Auto 0.03 X10*3/uL (0.00-0.03); Imm Gran Pct Auto 0.4 % (0.0-0.4); Lymphocytes Absolute Auto 0.6 X10*3/uL (1.2-4.9); Lymphocytes Percent Auto 8.8 % (20-40); Mean Corpuscular HGB Conc 34.6 g/dl (31.0-35.0); Mean Corpuscular Hemoglobin 31.7 pg (27.0-33.0); Mean Corpuscular Volume 91.7 fL (80.0-98.0); Mean Platelet Volume 8.8 fL (9.4-12.3); Monocytes Absolute Auto 1.6 X10*3/uL (0.1-1.2); Monocytes Percent Auto 22.2 % (2-11); Neutrophils Absolute Auto 4.9 x10*3/uL (2.0-8.3); Neutrophils Percent Auto 67.3 % (45-73); Platelet Count 191 X10*3/uL (160-400); Red Blood Count 4.35 X10*6/uL (4.20-5.50); Red Cell Distribution Width 13.7 % (11.0-16.0); SCAN SMEAR FLAG 1; White Blood Count 7.2 X10*3/uL (4.8-10.8)
[2023-07-14 01:29] LABS: MANUAL DIFF FLAG NO
[2023-07-14 01:37] LABS: IDNOW Serial# 08D9AD1C; Influenza A Positive (Negative)
[2023-07-14 01:42] LABS: Anion Gap 15 (12-20); Blood Urea Nitrogen 12 mg/dL (9-16); COVID-19 Test Negative (Negative); Calcium 8.7 mg/dL (8.4-10.2); Carbon Dioxide 20 mmol/L (22-29); Chloride 102 mmol/L (96-108); Creatinine Clr Calc Pharmacy 69.9; Estimated Glomerular Filt Rate > 60; Glucose Random 127 mg/dL (60-115); IDNOW Serial# 152EDE1D; Potassium 3.9 mmol/L (3.3-5.1); Sodium 133 mmol/L (135-145)
[2023-07-14 01:54] LABS: Influenza B2 Negative (Negative)
[2023-07-14] MEDS: Acetaminophen 325 MG TABLET 975 MG PO (02:32)
--- NOTE | 2023-07-14 06:47 | ED_ITS ---
HPI - URI/Sore Throat General Chief Complaint: Upper Respiratory Symptoms Stated Complaint: Flu like symptoms/102 fever per pt Time Seen by Provider: 07/14/23 06:45 Source: patient Mode of arrival: ambulatory Limitations: no limitations History of Present Illness HPI Narrative: This is a 63-year-old female history of COPD, hyperlipidemia, atrial fibrillation on Coumadin presenting to the emergency department with for evaluation of fevers, chills, malaise, myalgias, headache, productive cough with yellow/green sputum for the past 4 days. Patient attributes these symptoms to receiving the pneumococcal and influenza vaccine your a 2023. Denies any sick contacts. Patient denies chest pain, nausea, vomiting, abdominal pain, headache, vision changes, dizziness, weakness. Related Data Home Medications Medication Instructions Recorded Confirmed amlodipine 10 mg tablet 10 mg PO DAILY 05/11/22 06/26/23 carbamazepine 200 mg tablet 200 mg PO TID 05/11/22 06/26/23 fluoxetine 20 mg capsule 40 mg PO DAILY 05/11/22 06/26/23 latanoprost 0.005 % eye drops 1 drp ophthalmic (eye) DAILY 05/11/22 06/26/23 rosuvastatin 5 mg tablet 5 mg PO BEDTIME 05/11/22 06/26/23 ezetimibe 10 mg tablet 10 mg PO BEDTIME 06/26/23 06/26/23 fluticasone propionate 50 2 spray intranasal DAILY PRN 06/26/23 06/26/23 mcg/actuation nasal allergies spray,suspension gabapentin 300 mg capsule 300 mg PO BID 06/26/23 06/26/23 umeclidinium 62.5 mcg-vilanterol 1 ea inhalation DAILY 06/26/23 06/26/23 25 mcg/actuation powdr for inhalation (Anoro Ellipta) warfarin 4 mg tablet 4 - 6 mg PO DAILY 06/26/23 06/26/23 Previous Rx's Medication Instructions Recorded azithromycin 500 mg tablet 500 mg PO DAILY 3 days #3 tabs 06/28/23 prednisone 10 mg tablet See Rx Instructions .Route 06/28/23 .COMPLEX #45 tabs albuterol sulfate 90 mcg/actuation 2 inh inhalation Q4-6H PRN 07/14/23 breath activated powder inhaler shortness of breath or wheezing #1 ea benzonatate 100 mg capsule 100 mg PO BID PRN cough #20 caps 07/14/23 prednisone 20 mg tablet 40 mg (2 x 20 mg) PO DAILY 5 days 07/14/23 #10 tabs Allergies Allergy/AdvReac Type Severity Reaction Status Date / Time codeine [CODEINE] Allergy Unknown SWELLING Verified 07/14/23 00:42 phenytoin [Dilantin] Allergy Unknown Rash Verified 07/14/23 00:42 Codeine Phosphate Allergy Unknown Swelling Uncoded 07/14/23 00:42 From DILANTIN Allergy Unknown ITCHY Uncoded 07/14/23 00:42 Review of Systems 2 Review of Systems: Yes all other systems are reviewed and are negative [facility] Past Medical History Attestation statement: The following information was validated with the patient. Source: old records reviewed and nursing notes reviewed Medical History Essential hypertension Pulmonary nodules Seizures Cerebral aneurysm COPD exacerbation Social History Social History Household Members: Spouse Housing: House Do you presently have visiting nurse or other home services: No Alcohol intake: never Patient Tobacco Use Status: Former Tobacco user Smoked in Last 30 Days: No Use of substances other than those prescribed or required for medical reasons: No Substance Use Type: Marijuana Advance Directives: Yes Advance Directives on File: Yes Advance Directives Date on File: 06/29/23 service: No Physical Exam 2 Vital Signs: Vital Signs: Last Vital Signs Temp 97.9 F 07/14/23 05:56 Pulse 78 07/14/23 06:00 Resp 20 07/14/23 06:00 BP 121/70 07/14/23 05:56 Pulse Ox 94 07/14/23 06:00 O2 Del Method Room Air 07/14/23 06:00 BMI result Body Mass Index 30.9 vss Appearance: Alert.? Oriented X3.? No acute distress.? Head: Normocephalic, atraumatic, no step-offs or deformities Eyes: Pupils equal, round and reactive to light.? ENT: Pharynx normal.? Neck: Normal inspection.? Neck supple.? CVS: Normal heart rate and rhythm.? Pulses normal.? Respiratory: No respiratory distress.? Breath sounds diminished b/l w/ mild expiratory wheezing b/l. .? Abdomen: Soft and nontender.? Skin: Skin warm and dry.? Normal skin color.? Normal skin turgor.? Extremities: No lower extremity edema.? No calf ttp. 5/5 strength to bilateral upper and lower extremitieBack: No midline tenderness, no C-spine tenderness, full range of motion, no CVA tenderness bilaterally Neuro: Oriented X 3.? No motor deficit.? No sensory deficit. CN 2-12 intact Course Reevaluation(s) Reevaluation #1: CBC unremarkable. Chemistry no acute findings requiring intervention. Viral testing revealing positive flu test consistent with patient's symptoms. Patient's x-ray with emphysematous changes without superimposed focal lung consolidation or pleural effusions similar to previous study. I went into evaluate patient and patient is saturating 91% at rest. She does not use oxygen at home. Reporting some shortness of breath. Will do an ambulatory trial at this time. Time: 07:01 Reevaluation #2: Patient is saturating 94% with standing and 91% while ambulating she does have a history of COPD. Patient reports fatigue with ambulation however no shortness of breath, dizziness or chest pain. She states she just feeling tired. She does not feel like she is short of breath or having a difficult time breathing. She states she is feeling much better than she did when she 1st came in. Patient to be discharged home with prednisone, albuterol, benzonatate for cough. No indication for antibiotics as this is viral in nature. No indication for hospital admission. Time: 07:27 Medications Administered Discontinued Medications Generic Name Dose Route Start Last Admin Trade Name Freq PRN Reason Stop Dose Admin Acetaminophen 975 mg 07/14/23 02:29 07/14/23 02:32 Acetaminophen 325 Mg Tablet PO 07/14/23 02:30 975 mg ONCE ONE Administration Albuterol/Ipratropium 3 ml 07/14/23 07:23 07/14/23 07:26 Albuterol/Iprat 2.5/0.5mg 3 Ml Ampul.Neb INHALE 07/14/23 07:24 3 ml ONCE ONE Administration Medical Decision Making Medical Decision Making MDM Narrative: 63-year-old female presents with shortness of breath, cough, fatigue, malaise, myalgias, headache for the past 4 days. Physical exam diminished breath sounds bilaterally with mild expiratory wheezing bilaterally. Speaking in full sentences controlling secretions well History and physical exam concerning for viral illness will rule out flu versus COVID versus RSV. Bronchitis also in the differential. Less likely pneumonia, acute respiratory distress, ACS, PE, dissection. I do not suspect acute COPD exacerbation. Will rule out metabolic derangements Plan at this time labs, imaging, viral testing Differential Diagnosis Differential Diagnoses: The differential diagnosis associated with the presentation includes History and physical exam concerning for viral illness will rule out flu versus COVID versus RSV. Bronchitis also in the differential. Less likely pneumonia, acute respiratory distress, ACS, PE, dissection. I do not suspect acute COPD exacerbation. Will rule out metabolic derangements Admission/Observation Consideration of admission/observation: Escalation of care including admission/observation considered Possible Consult Healthcare Provider Management of the patient was discussed with: Hospitalist Lab Data MDM Lab Attestation statement: I reviewed the patient's lab results. 07/14/23 01:16 07/14/23 01:16 Labs: Lab Results 07/14/23 Range/Units 01:16 WBC 7.2 (4.8-10.8) X10*3/uL RBC 4.35 (4.20-5.50) X10*6/uL Hgb 13.8 (12.0-16.0) g/dl Hct 39.9 (37.0-47.0) % MCV 91.7 (80.0-98.0) fL MCH 31.7 (27.0-33.0) pg MCHC 34.6 (31.0-35.0) g/dl RDW 13.7 (11.0-16.0) % Plt Count 191 D (160-400) X10*3/uL MPV 8.8 L (9.4-12.3) fL Immature Gran % (Auto) 0.4 (0.0-0.4) % Neut % (Auto) 67.3 (45-73) % Lymph % (Auto) 8.8 L (20-40) % [place] % (Auto) 22.2 H (2-11) % Eos % (Auto) 1.0 (0-4) % Baso % (Auto) 0.3 (0-2) % Lymph # (Auto) 0.6 L (1.2-4.9) X10*3/uL [place] # (Auto) 1.6 H (0.1-1.2) X10*3/uL Eos # (Auto) 0.1 (0.0-0.4) X10*3/uL Baso # (Auto) 0.0 (0.0-0.2) X10*3/uL Abs Immat Gran (auto) 0.03 (0.00-0.03) X10*3/uL Absolute Neuts (auto) 4.9 (2.0-8.3) x10*3/uL Absolute Nucleated RBC 0.000 (0.0-0.012) X10*3/uL Nucleated RBC % (auto) 0.0 (0.0-0.2) /100WBC Sodium 133 L (135-145) mmol/L Potassium 3.9 (3.3-5.1) mmol/L Chloride 102 (96-108) mmol/L Carbon Dioxide 20 L (22-29) mmol/L Anion Gap 15 (12-20) BUN 12 (9-16) mg/dL Creatinine 0.74 (0.5-1.4) mg/dL Estim Creat Clear Calc 69.9 Estimated GFR > 60 Random Glucose 127 H (60-115) mg/dL Calcium 8.7 (8.4-10.2) mg/dL COVID-19 (GALA) Negative (Negative) COVID-19 Clin Com See Note Influenza Type A (ANAND) Positive A (Negative) Influenza Type B (ANAND) Negative (Negative) Influenza A & B Note See Note Independent Interpretation I performed an independent interpretation of an: Plain X-Ray (XR/XR chest 1V IMPRESSION: Emphysematous changes without superimposed focal lung consolidation or pleural effusion, similar to previous study. ) Radiology Impression Discussion of test interpretation with radiology: I have reviewed the radiologist's reading. External Record Review External record reviewed: Inpatient record, Office record, Outpatient record, Prior outpatient labs, Prior outpatient radiology, Primary care record and Outside ED record Chronic Conditions Patient?s care impacted by: Other (COPD, atrial fibrillation, hyperlipidemia) Critical Care Time Critical Care Time Critical Care Time: No Discharge Plan Discharge Clinical Impression: Influenza Patient Disposition: Home, Self-Care Instructions: Influenza (ED) Additional Instructions: Take your medications as prescribed. If you were prescribed antibiotics today, it is important that you take your medication to their entirety, do not skip any doses, do not finish them early. Follow-up with your primary care provider this week. Return to the emergency department with new or worsening symptoms. Such as fevers, chills, chest pain, shortness of breath, nausea, vomiting, dizziness, headache, vision changes, lethargy In case of emergency call 911 XR/XR chest 1V IMPRESSION: Emphysematous changes without superimposed focal lung consolidation or pleural effusion, similar to previous study. Prescriptions: New benzonatate 100 mg capsule 100 mg PO BID PRN (Reason: cough) Qty: 20 0RF prednisone 20 mg tablet 40 mg PO DAILY 5 Days Qty: 10 0RF albuterol sulfate 90 mcg/actuation aerosol powdr breath activated 2 inh inhalation Q4-6H PRN (Reason: shortness of breath or wheezing) Qty: 1 0RF Discontinued albuterol sulfate 90 mcg/actuation HFA aerosol inhaler 2 puff inhalation Q6H PRN (Reason: shortness of breath or wheezing) Qty: 6.7 1RF ipratropium-albuterol 0.5 mg-3 mg(2.5 mg base)/3 mL Solution For Nebulization 3 ml inhalation Q4H PRN (Reason: Shortness Of Breath/Wheezing) Qty: 270 1RF No Action gabapentin 300 mg capsule 300 mg PO BID warfarin 4 mg tablet 4 - 6 mg PO DAILY Anoro Ellipta 62.5-25 mcg/actuation blister with device 1 ea INHALATION DAILY fluticasone propionate 50 mcg/actuation spray,suspension 2 spray intranasal DAILY PRN (Reason: allergies) ezetimibe 10 mg tablet 10 mg PO BEDTIME azithromycin 500 mg tablet 500 mg PO DAILY 3 Days Qty: 3 0RF prednisone 10 mg tablet See Rx Instructions .Route .COMPLEX Qty: 45 0RF Rx Instructions: 10 mg orally; 5 tabs p.o. daily x3 days; 4 tabs p.o. daily x3 days; 3 tabs daily x3 days; 2 tabs daily x3 days; 1 tab daily x3 days latanoprost 0.005 % drops 1 drp ophthalmic (eye) DAILY fluoxetine 20 mg capsule 40 mg PO DAILY amlodipine 10 mg tablet 10 mg PO DAILY rosuvastatin 5 mg tablet 5 mg PO BEDTIME carbamazepine 200 mg tablet 200 mg PO TID Referrals: Jose Kumar MD [Primary Care Provider] - 2 days Stand Alone Forms: Work/School Release
--- NOTE | 2023-07-14 07:07 | PC.NURSE ---
Pt presented to ED overnight with complaints of fever, upper respiratory symptoms. Flu+. Recently seen by provider, requesting Ambulation trial - pt SATing in low 90s on RA - no hx of O2 requirement. WCTA
--- NOTE | 2023-07-14 07:20 | PC.NURSE ---
Ambulatory trial completed, pt SATing at 94% while standing. Desaturated to 91% with ambulation. Pt denies SOB/dizziness, endorses severe fatigue. Congested cough observed.
[2023-07-14] MEDS: Albuterol/Iprat 2.5/0.5MG 3 ML AMPUL.NEB INHALE (07:26)
[2023-07-14] MEDS: dexAMETHasone sod phosphate 10 MG/ML VIAL IVPUSH (07:52)
== END 2023-07-14 08:45 | disposition home or self-care (01) ==
PROVIDERS: Emergency Provider Emergency Medicine; PCP Internal Medicine
DX: J10.1 Influenza due to other identified influenza virus with other respiratory manifestations (principal); R05.9 Cough, unspecified; R50.9 Fever, unspecified; I10 Essential (primary) hypertension; J44.9 Chronic obstructive pulmonary disease, unspecified
CPT/HCPCS: 71045; 80048; 85025; 87502; 87635; 94640; 99284; 99285; J1100

== ENCOUNTER 2024-09-02 12:08 | Outpatient (REF) | payer MEDICARE, SELFPAY ==
[2024-09-02 13:43] LABS: Anion Gap 14 (12-20); Carbon Dioxide 23 mmol/L (22-29); Chloride 108 mmol/L (96-108); Potassium 4.6 mmol/L (3.3-5.1); Sodium 140 mmol/L (135-145)
[2024-09-02 14:02] LABS: TSH reflex Free T4 1.38 uIU/mL (0.32-4.0)
[2024-09-02 14:16] LABS: Vitamin B12 593 pg/mL (200-900)
--- OUTSIDE RECORDS SUMMARY | 2024-09-02 14:53 | XMS_ITS | Data Portability ---
Author Organization [facility] Address [address] [place] [address] Care Team Providers Care Chain Carrier Name Role Phone MICAH TRUONG Primary Care Provider Assessment No assessment recorded. Plan of Treatment Reminders Order Date Submit Date Provider Last Modified By Organization Details Last Modified Time Details Appointments None recorded. Lab rapid strep group A, throat 2022 023 [email or web address] 247 [facility], [address] [place] [address], [phone], 3 11:53:27 rapid SARS CoV 2 Ag, QL IA, respiratory specimen 2022 023 [email or web address] 247 [facility], [address] [place] [address], [phone], 3 11:53:27 Referral None recorded. Procedures None recorded. Surgeries None recorded. Imaging None recorded. Medication Orders None recorded. Patient TargetsNo targets recorded. Patient Instructions Encounter Date Encounter Id Patient Instructions Last Modified By Organization Details Last Modified Time 10/13/2022 [id number] You can take ove r the counter tylenol or ibuprofen per package instructions for the pain. See printed instructions. Follow-up with your doctor if no improvement in 1 week. Seek Emergency Medical evaluation for any worsening symptoms. [email or web address] Not available 10/13/2022 11:53:26 Reason for Referral None Reported. Results Created Date Observation Date Name Description Value Unit Range Abnormal Flag Note LastModifiedBy Organization Detail LastModifiedTime 10/14/19 23 10/13/2022 rapid SARS CoV 2 Ag, QL IA, respi rator y speci men Unknown Analyte Normal =Negat collin Not Available [address] [place] [address], [phone], 10/13/2022 10:53:02 10/14/19 23 10/13/2022 rapid SARS CoV 2 Ag, QL IA, respi rator y speci men Unknown Analyte negati ve Not Available [address] [place] [address], [phone], 10/13/2022 10:53:02 10/14/1910/13/2022 rapid strep group A, throa t Unknown Analyte Normal = Negati ve Not Available [address] [place] [address], [phone], 10/13/2022 10:52:55 10/14/1910/13/2022 rapid strep group A, throa t Unknown Analyte negati ve Not Available [address] [place] [address], [phone], 10/13/2022 10:52:55 Result Notes None recorded. Problems Name Problem SNOMED Code Status Onset Date Resolution Date Notes Provider Name and Address Organization Details Recorded Time Hypercholest erolemia 56291872 Active 2022 Sharon Romeo null, PA - [facility] 10:55:11 Seizure 96789475 Active 2022 Sharon Milo null, PA - [facility] 10:55:16 Hypertensive disorder 47099701 Active 2022 Sharon Milo null, PA - [facility] 10:55:23 Pulmonary embolism 59481756 Completed 202210/13/2022 Sharon Milo null, PA - [facility] 10:55:36 Problem Notes None recorded. Medical Equipment None Reported. Allergies Allergen ID Allergen Name Allergen Category Reaction Reaction Severity Criticality Documentation Date Start Date Code Code System Note Provider Name and Address Organization Details Recorded Time 562934 codeine medicatio n anaphylax is Not available Not available 10/13/2022 2670 RxNorm Sharon delgado PA - [facility] 3 10:52:40 Medications Name Sig Start Date Stop Date Status Note LastModified by Organization Details LastModified Time carbamazepin e active Not Available Not Available Not Available fluoxetine active Not Available Not Av ailable Not Available warfarin active Not Available Not Avai lable Not Available amlodipine active Not Available Not Av ailable Not Available gabapentin active Not Available Not Av ailable Not Available latanoprost active Not Available Not A vailable Not Available Miralax active Not Available Not Avail able Not Available ezetimibe active Not Available Not Radha ilable Not Available rosuvastatin active Not Available Not Available Not Available Airborne (ascorbate sodium) active Not Available Not Available Not Available Anoro Ellipta 62.5 mcg-25 mcg/actuatio n powder for inhalation Inhale 1 puff every day by inhalation route. active Not Available Not Available No t Available Sambucus Elderberry (zinc gluconate) 60 mg-5 mg-12.5 mg lozenges Take by oral route. active Not Available Not Available Not Available albuterol 90 mcg-budesoni de 80 mcg/actuatio n HFA aerosol inhaler Inhale by inhalation route. active Not Available Not Available No t Available Vitals Date Recorded Body height Body mass index (BMI) Body weight Pain severity - 0-10 verbal numeric rating [Score] - Reported Respiratory rate Body temperature Systolic blood pressure Diastolic blood pressure Provider Name and Address Organization Details Last Updated DateTime 3 152.4 cm 31.2 kg/m2 28164.7 8 g 3 20 /min 97.7 [degF] 133 mm[Hg] 82 mm[Hg] Sharon Walters PA - [facility] 3 10:57:33 Date Recorded Oxygen saturation Oxygen saturation in Arterial blood by Pulse oximetry Heart rate Provider Name and Address Organization Details Last Updated DateTime 10/13/2022 98 % 98 % 52 /min DESHAWN CHOWDARY PA - [facility] 10/13/2022 11:41:39 Social History Question Answer Notes LastModified by Organizat ion Details LastModified Time Tobacco Smoking Status Never Smoker Sharon Romeo null, PA - [facility] 10/13/2022 10:55:55 What Is Your Level Of Alcohol Consumption? None Information not available 10/13/2022 Have You Had Direct Contact, Or Contact During Intimacy, With Monkeypox Rash, Scabs, Or Body Fluids From A Person With Monkeypox? No Information not available 10/13/2022 Do You Use Any Illicit Or Recreational Drugs? No Information not available 10/13/2022 Have You Recently Traveled Abroad? No Information not available 10/13/2022 Do You Or Have You Ever Used Any Other Forms Of Tobacco Or Nicotine? No Information not available 10/13/2022 Sex: Unknown Functional Status None recorded. Mental Status None recorded. Family History Relationship Description Onset Age of this Age Resolved Age Notes LastModified by Organization Details LastModified Time Father No current problems or disability Not available 10/13 10:55:49 Mother No current problems or disability Not available 10/13 10:55:49 Medical History No medical history recorded. Gynecological History Statement/Question Response Is there any chance of ? No LMP N/A Obstetrics History GPAL:G 0 P 0 0 0 0 Immunizations Vaccine Type Date Status Note Provider Nam e and Address Organization Details Recorded Time Influenza, adjuvanted, trivalent, PF 7 completed Sharon Milo null, PA - [facility] 10/13/2022 10:52:27 Influenza, adjuvanted, trivalent, PF 2 completed Sharon Milo null, PA - [facility] 10/13/2022 10:52:27 zoster recombinant 8 completed Sharon Milo null, PA - [facility] 10/13/2022 10:52:27 COVID-19, mRNA, LNP-S, PF, 100 mcg/0.5mL dose or 50 mcg/0.25mL dose 2 completed Sharon Romeo null, PA - [facility] 10/13/2022 10:52:27 COVID-19, mRNA, LNP-S, PF, 100 mcg/0.5mL dose or 50 mcg/0.25mL dose 1 completed Sharon Romeo null, PA - [facility] 10/13/2022 10:52:27 COVID-19, mRNA, LNP-S, PF, 100 mcg/0.5mL dose or 50 mcg/0.25mL dose 2 completed Sharon Romeo null, PA - [facility] 10/13/2022 10:52:27 COVID-19, mRNA, LNP-S, PF, 100 mcg/0.5mL dose or 50 mcg/0.25mL dose 1 completed Sharon Romeo null, PA - [facility] 10/13/2022 10:52:27 COVID-19, mRNA, LNP-S, bivalent, PF, 50 mcg/0.5 mL or 25mcg/0.25 mL dose 3 completed Sharon Milo null, PA - [facility] 10/13/2022 10:52:27 Influenza, split virus, trivalent, preservative 4 completed Sharon Milo null, PA - [facility] 10/13/2022 10:52:27 Influenza, split virus, trivalent, PF 5 completed Sharon Romeo null, PA - [facility] 10/13/2022 10:52:27 Influenza, split virus, trivalent, PF 6 completed Sharon Milo null, PA - [facility] 10/13/2022 10:52:27 Influenza, split virus, quadrivalent, PF 0 completed Sharon Milo null, PA - [facility] 10/13/2022 10:52:27 Influenza, split virus, quadrivalent, PF 2 completed Sharon Romeo null, PA - [facility] 10/13/2022 10:52:27 Influenza, split virus, quadrivalent, PF 1 completed Sharon Romeo null, PA - [facility] 10/13/2022 10:52:27 Past Encounters Encounter ID Performer Location Encounter Start Date Encounter Closed Date Diagnosis/Indication Diagnosis SNOMED-CT Code Diagnosis ICD10 Code Diagnosis Note [id number] Venecia [facility] BRITTANY Hendrix [address] 12/04/2018 15:54:17 12/04/2018 17:07:19 [id number] Venecia [facility] BRITTANY Hendrix [id number] 08/13/2020 10:05:24 08/13/2020 10:45:18 [id number] Venecia [facility] BRITTANY Hendrix [id number] 12/09/2015 17:31:24 12/09/2015 18:31:47 [id number] Venecia Perdomor [facility] [place] [address] 08/16/2020 08:26:12 08/16/2020 09:55:15 [id number] Venecia Perdom[address] [place] [address] [place] [address] 03/01/2016 14:22:30 03/01/2016 15:25:15 [id number] Venecia Perdomor [address] [facility] [place] [address] 04/04/2020 16:06:37 04/04/2020 18:08:06 [id number] DEVONTE BARNES MD [facility] [address] [place] [address] [place] [address] 10/13/2022 09:55:20 10/13/2022 11:59:19 Upper respiratory infection 20381278 J06.9 Black Elderberry Syrup:1-2 tsp 2-3 times a day for 5 days as needed for coughing.S ambucol Black Elderberry Original Syrup (available at [employer] )Elizabeth Herbs Black Elderberry Syrup, 5.4-Ounce Bottle (available at [employer]) Use a cool mist humidifier in the room that you sleep to add moisture to the air, which should soothe the airways and help loosen any mucus that may be present. Clear liquids for comfortFre sh Rikki Root Tea-Cut up fresh rikki root and boil it till fragrant. drink the liquid as a tea. Can add Honey to taste. Also For Sore Throat:Thr oat Comfort Tea (by [employer])Thro at Coat Tea ( by [employer] ) Clear broth soup: Vegetable, Chicken or Beef as tolerated. Salt Water GarglesMix 1 teaspoonfu l of salt in a glass of warm water. Gargle and spit out the salt water mixture one mouthful at a time until the glass is empty. Repeat 4 times daily. Health Concerns Section Related Observation LastModified by Organization Detai ls LastModified Time None Recorded Concern Status LastModified by Organization Details LastModified Time None Recorded Advance Directives Directive None Recorded Payers Encounter Date Sequence Insurance Name Policy Number Policy Martin Covered Member ID Martin Member ID Guarantor Name 12/04/2018 1 [facility] [id number] Deshawn Emrant [id number] Mayte Wood Garrant 04/04/2020 1 [facility] [id number] Deshawn Garrant [id number] Mayte Wood Garrant 08/13/2020 1 [facility] [id number] Deshawn Garrant [id number] Mayte Wood Garrant 08/16/2020 1 [facility] [id number] Deshawn Garrant [id number] Mayte Wood Garrant 10/13/2022 1 [facility] [id number] Deshawn Garrant [id number] Mayte Wood Garrant Notes Date Note Type Note Provider Name and Address Organization Details Recorded Time 10/13/2022 text/html 62 yo female presents with sore throat and nasal congestion since this morning. Sick contacts include her grandson who has similar sxs. She also reports going her daughter's wedding a few days ago and getting sick after that. Strep + covid testing. DEVONTE BARNES MD [address] [place], [address], [place] - [facility] 10/26/2022 17:26:42 OBGyn Episode No OBEpisode recorded.
--- OUTSIDE RECORDS SUMMARY | 2024-09-02 14:54 | XMS_ITS | Encounter Summary ---
Author Organization [facility] Address [address] [facility] [address] [place] [address] Phone Care Team Providers Care Drosophere Operator Name Role Phone Jose Kumar MD Primary Care Provider [phone] Encounter Details Date Type Department Care Team (Late st Contact Info) Description 10/30/2020 Orders Only [facility] [address] [facility] [address] [place] [address] Gilbert Verduzco MD Hypertensive heart and chronic kidney disease without heart failure, with stage 1 through stage 4 chronic kidney disease, or unspecified chronic kidney disease; Chronic kidney disease, stage 2 (mild); Atrophy of kidney; Essential (primary) hypertension Social History Tobacco Use Types Packs/Day Years Used Date Smoking Tobacco: Never Assessed Comments Unknown Sex and Gender Information Value Date Recorded Sex Assigned at Not on file Legal Sex Female 2:40 PM EDT Gender Identity Not on file Sexual Orientation Not on file documented as of this encounter Plan of Treatment Upcoming Encounters Date Type Department Care Team (Late st Contact Info) Description 05/18/2025 10:30 AM EST Office Visit [facility] [address] [facility] [address] [place] [address] Larissa Montelongo ARNP [address] [facility] [address] [place] [address] documented as of this encounter Procedures Procedure Name Priority Date/Time Associated Diagnosis Comments US RENAL COMPLETE Routine 11/29/2020 3:4 4 PM EDT Hypertensive heart and chronic kidney disease without heart failure, with stage 1 through stage 4 chronic kidney disease, or unspecified chronic kidney disease Chronic kidney disease, stage 2 (mild) Atrophy of kidney Essential (primary) hypertension documented in this encounter Results * Ultrasound renal complete (11/29/2020 3:44 PM EDT) Anatomical Region Laterality Modality Body Ultrasound us Gilbert Verduzco MD IMG US PROCEDURES Final R esult documented in this encounter Visit Diagnoses Diagnosis Hypertensive heart and chronic kidney disease without heart failure, with stage 1 through stage 4 chronic kidney disease, or unspecified chronic kidney disease Chronic kidney disease, stage 2 (mild) Atrophy of kidney Essential (primary) hypertension documented in this encounter Care Teams Drosophere Operator Relationship Specialty Start Date End Date Jose Kumar MD [employer] [address] [place] [address] PCP - General Internal Medicine 10/29/20 documented as of this encounter
--- OUTSIDE RECORDS SUMMARY | 2024-09-02 14:54 | XMS_ITS | Clinical Summary ---
Author Organization [facility] Address [address] [address] Phone Care Team Providers Care [place] Attorney Name Role Phone Jose Kumar MD Primary Care Provider [phone] Allergies Active Allergy Reactions Criticality Noted Date Comments Codeine GI intolerance 10/29/2020 Phenytoin Rash Low 10/29/2020 Medications carBAMazepine (TEGretol) 200 MG tablet Take 200 mg by mouth 3 times a day 1 Active ezetimibe (ZETIA) 10 MG tablet Take 10 mg by mouth 1 (one) time each day 1 Active FLUoxetine (PROzac) 20 MG capsule Take 20 mg by mouth 1 (one) time each day 1 Active gabapentin (NEURONTIN) 100 MG capsule Take 200 mg by mouth 1 (one) time each day 1 Active latanoprost (XALATAN) 0.005 % ophthalmic solution INSTILL 1 DROP IN BOTH EYES EVERY MORNING 1 Active ofloxacin (OCUFLOX) 0.3 % ophthalmic solution instill 1 DROP FOUR TIMES DAILY, START ON 08/21/2020, IN THE LEFT EYE. USE DIRECTED AT POST OP APPOINTMENTS. 1 Active warfarin (COUMADIN) 4 MG tablet Take 4 mg by mouth 1 Active omega-3 acid ethyl esters (LOVAZA) 1 g capsule Take 2 g by mouth 2 (two) times a day Active rosuvastatin (CRESTOR) 5 MG tablet Take 5 mg by mouth 1 (one) time each day Active amLODIPine (NORVASC) 10 MG tabletIndications :Hypertensive heart and chronic kidney disease without heart failure, with stage 1 through stage 4 chronic kidney disease, or unspecified chronic kidney disease,Essential (primary) hypertension Take 1 tablet (10 mg total) by mouth 1 (one) time each day 90 tablet 3 4 02/18/20 25 Active Anoro Ellipta 62.5-25 MCG/ACT aerosol powder inhale 1 puff by mouth daily 4 Active Blood Pressure Monitoring (Omron 3 Series BP Monitor) deviceIndications :Essential (primary) hypertension 1 Device 1 (one) time each day 1 each 4 Active Active Problems Problem Noted Date Diagnosed Date Hypertension 10/29/2020 Hypertensive heart and chron ic kidney disease without heart failure, with stage 1 through stage 4 chronic kidney disease, or unspecified chronic kidney disease 10/29/2020 Chronic kidney disease, stage 2 (mild) 1 Atrophy of kidney 10/29/2020 Essential (primary) hypertension 10/29/2020 Family History Medical History Relation Comments Heart disease Father Hypertension Father Stroke Father Diabetes Mother Hypertension Mother Kidney disease Mother Stroke Mother Hypertension Sister Relation Status Comments Father Mother Sister Social History Tobacco Use Types Packs/Day Years Used Date Smoking Tobacco: Never Smokeless Tobacco: Never Tobacco Cessation:Counseling Given: Not Answered Alcohol Use Standard Drinks/Week Comments Yes 0 (1 standard drink = 0.6 oz pur e alcohol) Comments Unknown Sex and Gender Information Value Date Recorded Sex Assigned at Not on file Legal Sex Female 2:40 PM EDT Gender Identity Not on file Sexual Orientation Not on file Last Filed Vital Signs Vital Sign Reading Time Taken Comments Blood Pressure 126/80 05/19/2024 10:29 AM EST Pulse 55 05/19/2024 10:04 AM EST Temperature - - Respiratory Rate - - Oxygen Saturation 99% 05/19/2024 10:04 AM EST Inhaled Oxygen Concentration - - Weight 77.6 kg (171 lb) 05/19/2024 10:04 AM EST Height - - Body Mass Index - - Plan of Treatment Upcoming Encounters Date Type Department Care Team (Late st Contact Info) Description 05/18/2025 10:30 AM EST Office Visit [facility] [address] [address] Larissa Montelongo ARNP [address] [address] Health Maintenance Due Date Last Done Comments Breast Cancer Screening 1960 Colorectal Cancer Screening: Annual FOBT 2007 Colorectal Cancer Screening: Colonoscopy 2007 Colorectal Cancer Screening: Sigmoidoscopy 2007 Pneumococcal Vaccine: 50+ Years (2 of 2 - PCV) 09/03/2009 09/03/2008 Influenza Vaccine (Season Ended) 2025 03/12/2022, 02/13/2022, 04/16/2021, Additional history exists Pneumococcal Vaccine: Peds (0 to 5 Years) and At-Risk Patients (6 to 49 Years) Discontinued 09/03/2008 Hepatitis B Vaccine Aged Out No longe r eligible based on patient's age to complete this topic Insurance [facility] Care Teams [place] Attorney Relationship Specialty Start Date End Date Jose Kumar MD [employer] [address] [place] [address] [place] PCP - General Internal Medicine 10/29/20
[2024-09-02 16:46] LABS: Carbamazepine Tegretol 12.6 mcg/mL (5.0-12.0)
== END 2024-09-02 12:09 | disposition home or self-care (01) ==
LOC: HO.LAB 12:08
PROVIDERS: PCP Internal Medicine; Visit Provider Registered Nurse
DX: G31.84 Mild cognitive impairment of uncertain or unknown etiology (principal); G40.909 Epilepsy, unspecified, not intractable, without status epilepticus
CPT/HCPCS: 36415; 80051; 80156; 82607; 82746; 84443

== ENCOUNTER 2024-11-10 12:47 | Outpatient (REF) | payer MEDICARE, SELFPAY ==
--- NOTE | ~2024-11-10 | CT_ITS ---
EXAMINATION: CT HEAD WITHOUT CONTRAST CLINICAL INFORMATION: [facility] COMPARISON: January 16, 2011 TECHNIQUE: Contiguous axial imaging was performed from the skull base to vertex without intravenous administration of contrast. This CT examination was performed using dose optimization techniques as appropriate, variously including the following: *Automated exposure control *Adjustment of mA and/or kV according to patient size (this includes techniques or standardized protocols for targeted exams where dose is matched to indication/reason for exam; i.e. 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 There is an irregular shaped cortical/subcortical white matter hypodensity/encephalomalacia involving the right parietal pole extending into the right postcentral gyrus and deep periventricular white matter. No acute intracranial hemorrhage, mass effect, midline shift, hydrocephalus or lesion. Status post right temporal craniotomy/pterional approach. Sellar/suprasellar region demonstrated no gross masses. Craniocervical junction demonstrates normal position of the cerebellar tonsils. No air-fluid levels in the included paranasal sinuses. Tympanic cavities and mastoid cells are aerated.. 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 No acute intracranial hemorrhage. Electronically signed by: Dwight Lara MD 11/10/2024 02:04 PM EDT
--- OUTSIDE RECORDS SUMMARY | 2024-11-10 14:08 | XMS_ITS | Data Portability ---
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 Plan of Treatment Reminders Order Date Submit Date Provider Last Modified By Organization Details Last Modified Time Details Appointments None recorded. Lab rapid strep group A, throat 2022 023 [email or web address] 247 [facility], [address] [place] [address], [phone], 3 11:53:27 rapid SARS CoV 2 Ag, QL IA, respiratory specimen 2022 023 [email or web address] 247 _[facility], [address] [place] [address], [phone], 3 11:53:27 Referral None recorded. Procedures None recorded. Surgeries None recorded. Imaging None recorded. Medication Orders None recorded. Patient TargetsNo targets recorded. Patient Instructions Encounter Date Encounter Id Patient Instructions Last Modified By Organization Details Last Modified Time 10/13/2022 [id number] You can take ove r the counter tylenol or ibuprofen per package instructions for the pain. See printed instructions. Follow-up with your doctor if no improvement in 1 week. Seek Emergency Medical evaluation for any worsening symptoms. [email or web address] Not available 10/13/2022 11:53:26 Reason for Referral None Reported. Results Created Date Observation Date Name Description Value Unit Range Abnormal Flag Note LastModifiedBy Organization Detail LastModifiedTime 10/14/1910/13/2022 rapid SARS CoV 2 Ag, QL IA, respi rator y speci men Unknown Analyte Normal =Negat collin Not Available [address] [place] [address], [place], [address], 10/13/2022 10:53:02 10/14/19 23 10/13/2022 rapid SARS CoV 2 Ag, QL IA, respi rator y speci men Unknown Analyte negati ve Not Available [address] [place] [address], [address], 10/13/2022 10:53:02 10/14/1910/13/2022 rapid strep group A, throa t Unknown Analyte Normal = Negati ve Not Available [address] [place] [address], [address], 10/13/2022 10:52:55 10/14/1910/13/2022 rapid strep group A, throa t Unknown Analyte negati ve Not Available [address] [place] [address], [place], [address], 10/13/2022 10:52:55 Result Notes None recorded. Problems Name Problem SNOMED Code Status Onset Date Resolution Date Notes Provider Name and Address Organization Details Recorded Time Hypercholest erolemia 72998435 Active 2022 Sharon Saint Anthony null, [place] - [facility] 10:55:11 Seizure 79536909 Active 2022 Hsaron Saint Anthony null, [place] - [facility] 10:55:16 Hypertensive disorder 70683535 Active 2022 Sharon Romeo null, PA - [facility] 10:55:23 Pulmonary embolism 47680610 Completed 202210/13/2022 Sharon Saint Anthony null, PA - [facility] 10:55:36 Problem Notes None recorded. Medical Equipment None Reported. Allergies Allergen ID Allergen Name Allergen Category Reaction Reaction Severity Criticality Documentation Date Start Date Code Code System Note Provider Name and Address Organization Details Recorded Time 704927 codeine medicatio n anaphylax is Not available Not available 10/13/2022 5990 RxNorm Sharon delgado PA - [facility] [...] height Body mass index (BMI) Body weight Respiratory rate Body temperature Systolic blood pressure Diastolic blood pressure Provider Name and Address Organization Details Last Updated DateTime 3 152.4 cm 31.2 kg/m2 47618.7 8 g 20 /min 97.7 [degF] 133 mm[Hg] 82 [...] Time Tobacco Smoking Status Never Smoker Sharon Saint Anthony null, [place] - [facility] 10/13/2022 10:55:55 Have You Had Direct Contact, Or Contact During Intimacy, With Monkeypox Rash, Scabs, Or Body Fluids From A Person With Monkeypox? No Information not available 10/13/2022 Have You Recently Traveled Abroad? No Information not available 10/13/2022 Sex: Unknown Functional Status Question Answer Note LastModified by Organizat ion Details LastModified Time Do you use any illicit or recreational drugs? No Information not available 10/13/2022 Do you or have you ever used any other forms of tobacco or nicotine? No Information not available 10/13/2022 What is your level of alcohol consumption? None Information not available 10/13/2022 Mental Status None recorded. Family History Relationship [...] Influenza, adjuvanted, trivalent, PF 7 completed Sharon Saint Anthony null, PA - [facility] 10/13/2022 10:52:27 Influenza, adjuvanted, trivalent, PF 2 completed Sharon Romeo null, PA - [facility] 10/13/2022 10:52:27 zoster recombinant 8 completed Sharon Saint Anthony null, PA - [facility] 10/13/2022 10:52:27 COVID-19, mRNA, LNP-S, PF, 100 mcg/0.5mL dose or 50 mcg/0.25mL dose 2 completed Sharon Romeo null, PA - [facility] 10/13/2022 10:52:27 COVID-19, mRNA, LNP-S, PF, 100 mcg/0.5mL dose or 50 mcg/0.25mL dose 1 completed Sharon Saint Anthony null, PA - [facility] 10/13/2022 10:52:27 COVID-19, mRNA, LNP-S, PF, 100 mcg/0.5mL dose or 50 mcg/0.25mL dose 2 completed Sharon Romeo null, PA - [facility] 10/13/2022 10:52:27 COVID-19, mRNA, LNP-S, PF, 100 mcg/0.5mL dose or 50 mcg/0.25mL dose 1 completed Sharon Saint Anthony null, PA - [facility] 10/13/2022 10:52:27 COVID-19, mRNA, LNP-S, bivalent, PF, 50 mcg/0.5 mL or 25mcg/0.25 mL dose 3 completed Sharon Saint Anthony null, PA - [facility] 10/13/2022 10:52:27 Influenza, split virus, trivalent, preservative 4 completed Sharon Saint Anthony null, PA - [facility] 10/13/2022 10:52:27 Influenza, split virus, trivalent, PF 5 completed Sharon Saint Anthony null, PA - [facility] 10/13/2022 10:52:27 Influenza, split virus, trivalent, PF 6 completed Sharon Romeo null, PA - [facility] 10/13/2022 10:52:27 Influenza, split virus, quadrivalent, PF 0 completed Sharon Romeo null, PA - [facility] 10/13/2022 10:52:27 Influenza, split virus, quadrivalent, PF 2 completed Sharon Romeo null, PA - [facility] 10/13/2022 10:52:27 Influenza, split virus, quadrivalent, PF 1 completed Sharon Romeo null, PA - [facility] 10/13/2022 10:52:27 Past Encounters Encounter ID Performer Location Encounter Start Date Encounter Closed Date Diagnosis/Indication Diagnosis SNOMED-CT Code Diagnosis ICD10 Code Diagnosis Note [id number] [address] [place] [address] 12/04/2018 15:54:17 12/04/2018 17:07:19 [id number] [address] [address] [place] [address] 08/13/2020 10:05:24 08/13/2020 10:45:18 [id number] [address] [address] [place] [address] 12/09/2015 17:31:24 12/09/2015 18:31:47 [id number] [address] [address] [place] [address] 08/16/2020 08:26:12 08/16/2020 09:55:15 [id number] [address] [address] [place] [address] 03/01/2016 14:22:30 03/01/2016 15:25:15 [id number] [address] [address] [place] [address] 04/04/2020 16:06:37 04/04/2020 18:08:06 [id number] DEVONTE BARNES MD [address] [place] [address] 10/13/2022 09:55:20 10/13/2022 11:59:19 Upper respiratory infection 13796086 J06.9 Black Elderberry Syrup:1-2 tsp 2-3 times a day for 5 days as needed for coughing.S ambucol Black Elderberry Original Syrup (available at [facility] )[employer] Black Elderberry Syrup, 5.4-Ounce Bottle (available at [employer] or [employer]) Use a cool mist humidifier in the [...] Brand)Thro at Coat Tea ( by [employer] ) Clear broth soup: Vegetable, Chicken [...] Recorded Advance Directives Directive None Recorded Payers Insurance Date Sequence Insurance Name Policy Number Policy Martin Covered Member ID Martin Member ID Guarantor Name 10/26/[address] [place] [id number] Deshawn Hernandez [id number] Mayte Hernandez Notes Date Note Type Note Provider Name [...] BARNES MD [address] [place], [address], [place] - [facility] 10/26/2022 17:26:42 OBGyn Episode No OBEpisode recorded.
== END 2024-11-10 12:48 | disposition home or self-care (01) ==
LOC: HO.CT 12:47
PROVIDERS: PCP Internal Medicine; Visit Provider Registered Nurse
DX: G40.909 Epilepsy, unspecified, not intractable, without status epilepticus (principal); G31.84 Mild cognitive impairment of uncertain or unknown etiology
CPT/HCPCS: 70450

== ENCOUNTER → 2024-11-10 13:36 | Outpatient (BNV) | payer MEDICARE, SELFPAY | PROVIDERS: PCP Internal Medicine; Visit Provider Radiology Diagnostic Radiology | DX: G31.84 Mild cognitive impairment of uncertain or unknown etiology (principal) | CPT/HCPCS: 70450 ==

== ENCOUNTER 2024-11-12 09:15 | Outpatient (REF) | payer MEDICARE, SELFPAY ==
[2024-11-12 09:33] LABS: MANUAL DIFF FLAG NO
[2024-11-12 09:49] LABS: Basophils Absolute Auto 0.1 X10*3/uL (0.0-0.2); Basophils Percent Auto 0.6 % (0-2); Eosinophils Absolute Auto 0.2 X10*3/uL (0.0-0.4); Eosinophils Percent Auto 1.9 % (0-4); Hematocrit 42.6 % (37.0-47.0); Hemoglobin 14.7 g/dl (12.0-16.0); Imm Gran Abs Auto 0.02 X10*3/uL (0.00-0.03); Imm Gran Pct Auto 0.3 % (0.0-0.4); Lymphocytes Absolute Auto 2.7 X10*3/uL (1.2-4.9); Lymphocytes Percent Auto 34.1 % (20-40); Mean Corpuscular HGB Conc 34.5 g/dl (31.0-35.0); Mean Corpuscular Hemoglobin 31.7 pg (27.0-33.0); Monocytes Absolute Auto 0.9 X10*3/uL (0.1-1.2); Monocytes Percent Auto 11.5 % (2-11); Neutrophils Percent Auto 51.6 % (45-73); Platelet Count 308 X10*3/uL (160-400); Red Blood Count 4.63 X10*6/uL (4.20-5.50); White Blood Count 7.8 X10*3/uL (4.8-10.8)
[2024-11-12 09:58] LABS: Estimated Average Glucose 111 mg/dL; Hemoglobin A1c % 5.5 % (<6.0)
--- OUTSIDE RECORDS SUMMARY | 2024-11-12 10:05 | XMS_ITS | Data Portability ---
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 Plan of Treatment Reminders Order Date Submit Date Provider Last Modified By Organization Details Last Modified Time Details Appointments None recorded. Lab rapid strep group A, throat 2022 023 [email or web address] 247 _[facility], [address] [place] [address], [phone], 3 11:53:27 rapid SARS CoV 2 Ag, QL IA, respiratory specimen 2022 023 [email or web address] 247 _[facility], [address] [place] [address], [phone], 3 11:53:27 Referral None recorded. Procedures None recorded. Surgeries None recorded. Imaging None recorded. Medication Orders None recorded. Patient TargetsNo targets recorded. Patient Instructions Encounter Date Encounter Id Patient Instructions Last Modified By Organization Details Last Modified Time 10/13/2022 [id number] You can take ove r the counter tylenol or ibuprofen per package instructions for the pain. See printed instructions. Follow-up with your doctor if no improvement in 1 week. Seek Emergency Medical evaluation for any worsening symptoms. [email or web address] Not available 10/13/2022 11:53:26 Reason for Referral None Reported. Results Created Date Observation Date Name Description Value Unit Range Abnormal Flag Note LastModifiedBy Organization Detail LastModifiedTime 05/10/13/2022 rapid SARS CoV 2 Ag, QL IA, respi rator y speci men Unknown Analyte Normal =Negat collin Not Available [address] [place] [address], [place], [address], 10/13/2022 10:53:02 10/14/19 23 10/13/2022 rapid SARS CoV 2 Ag, QL IA, respi rator y speci men Unknown Analyte negati ve Not Available [address] [place] [address], [address], 10/13/2022 10:53:02 10/14/1910/13/2022 rapid strep group A, throa t Unknown Analyte Normal = Negati ve Not Available [address] [place] [address], [address], 10/13/2022 10:52:55 10/14/1910/13/2022 rapid strep group A, throa t Unknown Analyte negati ve Not Available [address] [place] [address], [place], [address], 10/13/2022 10:52:55 Result Notes None recorded. Problems Name Problem SNOMED Code Status Onset Date Resolution Date Notes Provider Name and Address Organization Details Recorded Time Hypercholest erolemia 82024344 Active 2022 Sharon Sewell null, PA - [facility] 10:55:11 Seizure 18576787 Active 2022 Sharon Sewell null, PA - [facility] 10:55:16 Hypertensive disorder 75215773 Active 2022 Sharon Romeo null, PA - [facility] 10:55:23 Pulmonary embolism 32977730 Completed 202210/13/2022 Sharon Sewell null, PA - [facility] 10:55:36 Problem Notes None recorded. Medical Equipment None Reported. Allergies Allergen ID Allergen Name Allergen Category Reaction Reaction Severity Criticality Documentation Date Start Date Code Code System Note Provider Name and Address Organization Details Recorded Time 723886 codeine medicatio n anaphylax is Not available Not available 10/13/2022 0580 RxNorm Sharon delgado PA - [facility] [...] Updated DateTime 3 152.4 cm 31.2 kg/m2 79701.7 8 g 20 /min 97.7 [degF] 133 [...] Time Tobacco Smoking Status Never Smoker Sharon Sewell null, PA - [facility] 10/13/2022 10:55:55 [...] Influenza, adjuvanted, trivalent, PF 7 completed Sharon Sewell null, PA - [facility] 10/13/2022 10:52:27 Influenza, adjuvanted, trivalent, PF 2 completed Sharon Romeo null, PA - [facility] 10/13/2022 10:52:27 zoster recombinant 8 completed Sharon Sewell null, PA - [facility] 10/13/2022 10:52:27 COVID-19, mRNA, LNP-S, PF, 100 mcg/0.5mL dose or 50 mcg/0.25mL dose 2 completed Sharon Romeo null, PA - [facility] 10/13/2022 10:52:27 COVID-19, mRNA, LNP-S, PF, 100 mcg/0.5mL dose or 50 mcg/0.25mL dose 1 completed Sharon Sewell null, PA - [facility] 10/13/2022 10:52:27 COVID-19, mRNA, LNP-S, PF, 100 mcg/0.5mL dose or 50 mcg/0.25mL dose 2 completed Sharon Romeo null, PA - [facility] 10/13/2022 10:52:27 COVID-19, mRNA, LNP-S, PF, 100 mcg/0.5mL dose or 50 mcg/0.25mL dose 1 completed Sharon Sewell null, PA - [facility] 10/13/2022 10:52:27 COVID-19, mRNA, LNP-S, bivalent, PF, 50 mcg/0.5 mL or 25mcg/0.25 mL dose 3 completed Sharon Sewell null, PA - [facility] 10/13/2022 10:52:27 Influenza, split virus, trivalent, preservative 4 completed Sharon Sewell null, PA - [facility] 10/13/2022 10:52:27 Influenza, split virus, trivalent, PF 5 completed Sharon Sewell null, PA - [facility] 10/13/2022 10:52:27 [...] SNOMED-CT Code Diagnosis ICD10 Code Diagnosis Note [id number] [address] [address] [place] [address] 12/04/2018 15:54:17 12/04/2018 17:07:19 [id number] [address] [address] [place] [address] 08/13/2020 10:05:24 08/13/2020 10:45:18 [id number] [address] [address] [place] [address] 12/09/2015 17:31:24 12/09/2015 18:31:47 [id number] [address] [address] [place] [address] 08/16/2020 08:26:12 08/16/2020 09:55:15 [id number] [address] [address] [place] [address] 03/01/2016 14:22:30 03/01/2016 15:25:15 [id number] [address] [address] [place] [address] 04/04/2020 16:06:37 04/04/2020 18:08:06 [id number] DEVONTE BARNES MD [address] [place] [address] 10/13/2022 09:55:20 10/13/2022 11:59:19 Upper respiratory infection 71115416 J06.9 Black Elderberry Syrup:1-2 tsp 2-3 times a day for 5 days as needed for coughing.S ambucol Black Elderberry Original Syrup (available at [facility] )[employer] Black Elderberry Syrup, 5.4-Ounce Bottle (available at [employer] or [employer]) Use a cool mist humidifier in the [...] Brand)Thro at Coat Tea ( by [employer] ) Clear broth soup: Vegetable, Chicken [...] ID Martin Member ID Guarantor Name 10/26/[address] [place] [address] [id number] Deshawn Hernandez [id number] Mayte Hernandez Notes Date Note Type Note [...] BARNES MD [address] [place], [address], [place] - [facility] 10/26/2022 17:26:42 OBGyn Episode No OBEpisode recorded.
[2024-11-12 10:20] LABS: Carbamazepine Tegretol 12.2 mcg/mL (5.0-12.0)
[2024-11-12 10:22] LABS: Alanine Aminotransferase 22 U/L (0-31); Albumin Level 4.5 g/dL (3.5-5.0); Alkaline Phosphatase 110 U/L (39-117); Anion Gap 15 (12-20); Aspartate Amino Transferase 30 U/L (5-31); Bilirubin Total 0.2 mg/dL (0.0-1.0); Blood Urea Nitrogen 17 mg/dL (9-16); Calcium 9.8 mg/dL (8.4-10.2); Carbon Dioxide 22 mmol/L (22-29); Chloride 107 mmol/L (96-108); Cholesterol 201 mg/dL (<200); Estimated Glomerular Filt Rate > 60; Glucose Random 101 mg/dL (60-115); HDL Cholesterol 56 mg/dL (>40); Potassium 4.5 mmol/L (3.3-5.1); Sodium 139 mmol/L (135-145); Total Protein 7.6 g/dL (6.5-8.0)
[2024-11-14 06:03] LABS: LDL Cholesterol Direct 107 mg/dL (<100)
== END 2024-11-12 09:16 | disposition home or self-care (01) ==
LOC: HO.LAB 09:15
PROVIDERS: Absent Provider Nurse Practitioner Adult Health; PCP Internal Medicine; Visit Provider Registered Nurse
DX: G40.909 Epilepsy, unspecified, not intractable, without status epilepticus (principal); E78.00 Pure hypercholesterolemia, unspecified; I10 Essential (primary) hypertension; R73.9 Hyperglycemia, unspecified
CPT/HCPCS: 36415; 80053; 80156; 82465; 83036; 83718; 83721; 85025